=== PATIENT | female | born 1970 | race Caucasian/White ===

== ENCOUNTER 2016-12-14 10:27 | Outpatient (CLI) ==
[2013-04-28 18:50] VITALS: TEMP 97.8
[2016-09-05 18:31] VITALS: BMI 36.0
[2016-12-14 11:02] LABS: FLU INTERNAL QC INTERNAL QC VALID; RAPID FLU A NEGATIVE (NEGATIVE); RAPID FLU B NEGATIVE (NEGATIVE)
== END 2016-12-14 10:28 | disposition home or self-care (01) ==
LOC: LAB 10:27
PROVIDERS: ATTEND Family Medicine
DX: R68.89 Other general symptoms and signs (principal)
CPT/HCPCS: 87804

== ENCOUNTER 2017-01-04 18:41 | Emergency (ER) ==
[2017-01-04 18:46] VITALS: BP 152/84; TEMP 99.8; BMI 39.1
[2017-01-04] MEDS ORDERED: DILAUDID 2 MG/ML SYRINGE IM STA (19:04)
[2017-01-04] MEDS ORDERED: PHENERGAN 25 MG/ML VIAL IM STA (19:04)
--- NOTE | 2017-01-04 19:17 | ED.PDOC ---
General ED Provider: Dr. TEJA BALBUENA-ER Chief Complaint: Headache Stated Complaint: i had a migraine kaminski today and started vomiting--cant keep my meds down Time Seen by Physician: 18:50 Mode of Arrival: Walk-In Information Source: Patient Exam Limitations: No limitations Primary Care Provider: RADHA HALEY Nursing and Triage Documentation Reviewed and Agree: Yes Neurological Complaint Exam - Headache Complaint/Exam Onset: Gradual Duration: several hours Symptoms Are: Still present Timing: Constant Worst Headache Ever: Yes Initial Severity: Moderate Current Severity: Moderate Location: Diffuse Character: Reports: Dull, Throbbing, Pressure, Typical headache, Migraine Aggravating: Reports: Bright lights Alleviating: Reports: None Associated Signs and Symptoms: Reports: Nausea, Vomiting. Denies: Dizziness, Seizure, Sinus pressure, Fever, Neck pain, Neck stiffness, Decreased LOC, Visual changes Related History: Reports: Similar episode (long hx of migraine kaminski) Related Surgical History: Reports: None SAH Risk Factors: Reports: None Meningitis Risk Factors: Reports: None SDH Risk Factors: Reports: None Temporal Arteritis Risk Factors: Reports: Female, Normal Head CT Within Last 12 Months: Yes Fundoscopic Exam: Present: Normal Findings Papilledema Present: No Temporal Artery Tenderness: Present: None Sinus Tenderness: Present: None TMJ Tenderness: Present: None Glascow Coma Scale (see protocol): 15 Meningeal Signs Positive: No Pain on Passive Flexion-Positive Kernig's: No ROM Limited In: No Limitiations Focal Weakness: Present: None Focal Sensory Loss: Present: None Gait: Normal Nystagmus Present: No Gag Reflex Present: Yes [id number]: Normal Findings Romberg Test Positive: No Babinski Sign: Negative Right, Negative Left Heel to Toe Normal: Yes Differential Diagnoses: Migraine Review of Systems - Review Of Systems Constitutional: Reports: No symptoms Eyes: Reports: No symptoms Ears, Nose, Mouth, Throat: Reports: No symptoms Respiratory: Reports: No symptoms Cardiac: Reports: No symptoms GI: Reports: Nausea, Vomiting : Reports: No symptoms Musculoskeletal: Reports: No symptoms Skin: Reports: No symptoms Neurological: Reports: Headache Endocrine: Reports: No symptoms Hematologic/Lymphatic: Reports: No symptoms All Other Systems: Reviewed and Negative Past Medical History - Past Medical History Previously Healthy: Yes Endocrine: Reports: None, Dyslipidemia Cardiovascular: Reports: None, Hypertension Respiratory: Reports: None Hematological: Reports: None Gastrointestinal: Reports: Other (IBS) Genitourinary: Reports: None Neuro/Psych: Reports: Migraine, Depression Musculoskeletal: Reports: None Cancer: Reports: None Last Menstrual Period: hysterectomy - Surgical History General Surgical History: Reports: Hysterectomy, Back Surgery, Other (NASAL SURG FOR SINUSES 05/13) - Family History Family History: Reports: Unknown - Social History Smoking Status: Current every day smoker, Heavy tobacco smoker Hx Substance Use: No Alcohol Screening: None Lives: With family Physical Exam - Physical Exam Appearance: Well-appearing, No pain distress, Well-nourished Pain Distress: Moderate Eyes: KORIN, EOMI, Conjunctiva clear ENT: Ears normal, Nose normal, Oropharynx normal Neck: Supple Respiratory: Airway patent, Breath sounds clear, Breath sounds equal, Respirations nonlabored Cardiovascular: RRR, Pulses normal, No rub, No murmur GI/: Soft, Nontender, No masses, Bowel sounds normal, No Organomegaly Musculoskeletal: Normal strength, ROM intact, No edema, No calf tenderness Skin: Warm, Dry, Normal color Neurological: Sensation intact, Motor intact, Reflexes intact, Cranial nerves intact, Alert, Oriented Psychiatric: Affect appropriate, Mood appropriate Re-Evaluation - Re-Evaluation Time of Re-Evaluation: 19:30 Status: Improved Vital Signs Stable: Yes Pain Level: 1 Appearance: NAD Lungs: Clear Skin: Warm and Dry Neuro: Alert and Oriented X3 CV: RRR Critical Care Note - Critical Care Note Total Time (mins): 0 Course - Course Orders, Labs, Meds: Orders Category Date Time Status Hydromorphone HCl/Pf [Dilaudid 2 mg/ml Syringe] MEDS 01/04/17 19:04 Discontinued 2 mg IM ONCE STA Promethazine HCl [Phenergan 25 mg/ml Vial] MEDS 01/04/17 19:04 Discontinued 25 mg IM ONCE STA Medications Discontinued Medications Generic Name Dose Route Start Last Admin Trade Name Freq PRN Reason Stop Dose Admin Hydromorphone HCl 2 mg 01/04/17 19:04 01/04/17 19:10 Dilaudid 2 Mg/Ml Syringe IM 01/04/17 19:05 2 mg ONCE STA Administration Promethazine HCl 25 mg 01/04/17 19:04 01/04/17 19:08 Phenergan 25 Mg/Ml Vial IM 01/04/17 19:05 25 mg ONCE STA Administration Vital Signs: Temp Pulse Resp BP Pulse Ox 01/04/17 18:41 99.8 F H 119 H 16 152/84 H 96 Departure - Departure Time of Disposition: 19:18 Disposition: HOME SELF-CARE Discharge Problem: Migraine headache Qualifiers: Migraine type: unspecified Status migrainosus presence: without status migrainosus Intractability: not intractable Qualifier Code: (G43.909) Migraine, unspecified, not intractable, without status migrainosus Instructions: Acute Headache (ED) Condition: Good Pt referred to PMD for follow-up: Yes Additional Instructions: f/u with pcp Allergies/Adverse Reactions: Allergies No Known Allergies Allergy (Verified 01/04/17 18:47) Home Medications: Ambulatory Orders Enalapril Maleate 10 mg PO DAILY 04/28/13 Fluoxetine HCl [Prozac] 40 mg PO BIDAC 04/28/13 Furosemide [Lasix Tab] 20 mg PO BID 04/28/13 Pantoprazole Sodium [Protonix] 40 mg PO QDAC 04/28/13 Promethazine HCl [Phenergan Tab] 25 mg PO PRN PRN 04/28/13 Topiramate [Topamax] 200 mg PO DAILY 04/28/13 Trazodone HCl 100 mg PO BEDTIME 04/28/13 Butorphanol Tartrate 1 spray DENNIS DIRECTED PRN 07/24/14 Calcium Carbonate/Vitamin D3 [Calcium 600 + Vit D Caplet] 1 tab PO BID 07/24/14 Carbidopa/Levodopa [Carbidopa-Levodopa 25-100 Tab] 1 tab-cap PO BEDTIME Zolpidem Tartrate [Zolpidem Tartrate] 10 mg PO BEDTIME 07/24/14 Simvastatin [Zocor] 20 mg PO QPM 09/09/14 Hydrocodone/Acetaminophen [[place] 10-325 Tablet] 1 each PO Q6HR PRN #7 tablet Hydrocortisone Acetate [Anusol-Hc] 25 mg RC QID PRN #12 supp.rect 05/20/16 Na Phos,M-B/Na Phos,Di-Ba [Enema Yremk-Zo-Yux] 399 ml RC ONCE PRN #1 enema 05/20 Polyethylene Glycol 3350 [Miralax] 17 gm PO DAILY PRN #510 powder 05/20/16 Cyanocobalamin (Vitamin B-12) [Vitamin B-12] 1,000 mcg IJ ONCE #1 vial 06/15/16 Enalapril Maleate 10 mg PO DAILY 06/15/16 Fluoxetine HCl 40 mg PO DAILY 06/15/16 Furosemide 20 mg PO DAILY 06/15/16 Promethazine HCl 25 mg PO DAILY 06/15/16 Simvastatin 20 mg PO BEDTIME 06/15/16 Topiramate 200 mg PO BEDTIME 06/15/16 Zolpidem Tartrate 10 mg PO BEDTIME 06/15/16 Chlorpromazine HCl 5 mg PO DAILY 01/04/17 Disposition Discussed With: Patient, Family
== END 2017-01-04 19:47 | disposition home or self-care (01) ==
LOC: ED 18:41
DX: G43.909 Migraine, unspecified, not intractable, without status migrainosus (principal); F17.210 Nicotine dependence, cigarettes, uncomplicated
CPT/HCPCS: 96372; 99283

== ENCOUNTER 2017-01-18 09:53 | Outpatient (CLI) ==
[2013-04-28 18:50] VITALS: TEMP 97.8
--- NOTE | 2017-01-18 11:17 | DI ---
Examination: Three radiographic images of the lumbar spine. Comparison: MRI performed 01/12/2013. Reason for study: Lower back pain. FINDINGS: No acute fracture or listhesis. There is similar appearing loss of the intervertebral jarret dy disc space height at L5, S1. There is some straightening of the lumbar lordotic curve. Surgical clips are seen within the pelvis. Mild degenerative changes are seen within the osteophyte formati on. Impression: 1. No acute fracture or listhesis. 2. Degenerative changes with loss of the intervertebral body disc space height most notably L5, S1. If clinical concern exists for radiculopathy, MRI may be performed.
== END 2017-01-18 09:54 | disposition home or self-care (01) ==
LOC: RAD 09:53
PROVIDERS: ATTEND Pain Medicine Interventional Pain Medicine
DX: M51.17 Intervertebral disc disorders with radiculopathy, lumbosacral region (principal); M96.1 Postlaminectomy syndrome, not elsewhere classified; M51.36 Other intervertebral disc degeneration, lumbar region; M51.37 Other intervertebral disc degeneration, lumbosacral region

== ENCOUNTER 2017-02-04 18:01 | Emergency (ER) ==
[2017-02-04 18:03] VITALS: BP 161/100; TEMP 99.1; BMI 38.6
--- NOTE | 2017-02-04 18:23 | ED.PDOC ---
General ED Provider: Dr. URIEL HACKETT Chief Complaint: Headache Stated Complaint: Back of neck; headache. Similar to prior HAs Time Seen by Physician: 18:25 Mode of Arrival: Walk-In Information Source: Patient Primary Care Provider: RADHA HALEY Nursing and Triage Documentation Reviewed and Agree: Yes Review of Systems - Review Of Systems Constitutional: Reports: No symptoms Eyes: Reports: Photophobia Respiratory: Reports: No symptoms GI: Reports: Nausea Musculoskeletal: Reports: No symptoms All Other Systems: Reviewed and Negative Past Medical History - Past Medical History Previously Healthy: Yes Endocrine: Reports: None, Dyslipidemia Cardiovascular: Reports: None, Hypertension Respiratory: Reports: None Hematological: Reports: None Gastrointestinal: Reports: Other (IBS) Genitourinary: Reports: None Neuro/Psych: Reports: Migraine, Depression Musculoskeletal: Reports: None Cancer: Reports: None Last Menstrual Period: n/a - Surgical History General Surgical History: Reports: Hysterectomy, Back Surgery, Other (NASAL SURG FOR SINUSES 05/13) - Family History Family History: Reports: Unknown - Social History Smoking Status: Current every day smoker, Heavy tobacco smoker Hx Substance Use: No Alcohol Screening: None Physical Exam - Physical Exam Appearance: Ill-appearing Ill-appearing: Mild Pain Distress: Mild Eyes: KORIN, EOMI, Right pupil size (5 mm), Left pupil size (5 mm) Neck: Supple Respiratory: Airway patent, Breath sounds clear, Breath sounds equal, Respirations nonlabored Cardiovascular: RRR, Pulses normal Musculoskeletal: Normal strength, ROM intact Skin: Warm, Dry Neurological: Sensation intact, Motor intact Critical Care Note - Critical Care Note Total Time (mins): 25 Course - Course Orders, Labs, Meds: Orders Category Date Time Status Morphine Sulfate [Morphine 4 mg/ml Syringe] MEDS 02/04/17 18:30 Discontinued 4 mg IVP ONCE STA Promethazine HCl [Phenergan 25 mg/ml Vial] MEDS 02/04/17 18:58 Discontinued 25 mg .ROUTE .STK-MED ONE Promethazine HCl [Phenergan 25 mg/ml Vial] 6.25 mg MEDS 02/04/17 18:28 Discontinued 0.9 % Sodium Chloride [Sodium Chloride] 50 ml IV ONCE Sodium Chloride 0.9% [Sodium Chloride] 1,000 ml MEDS 02/04/17 18:27 Discontinued IV BOLUS Medications Discontinued Medications Generic Name Dose Route Start Last Admin Trade Name Freq PRN Reason Stop Dose Admin Promethazine HCl 6.25 mg/ 50.25 mls @ 75 mls/hr 02/04/17 18:28 02/04/17 19:04 Sodium Chloride IV 02/04/17 19:08 75 mls/hr ONCE STA Administration Sodium Chloride 1,000 mls @ 1,000 mls/hr 02/04/17 18:27 02/04/17 18:57 Sodium Chloride IV 02/04/17 19:26 1,000 mls/hr BOLUS STA Administration Morphine Sulfate 4 mg 02/04/17 18:30 02/04/17 19:02 Morphine 4 Mg/Ml Syringe IVP 02/04/17 18:31 4 mg ONCE STA Administration Vital Signs: Temp Pulse Resp BP Pulse Ox 02/04/17 18:02 99.1 F 95 H 16 161/100 H 95 Departure - Departure Time of Disposition: 19:30 Disposition: HOME SELF-CARE Discharge Problem: Migraine headache Instructions: Migraine Headache (ED) Condition: Good Pt referred to PMD for follow-up: Yes (Call for appointment) Additional Instructions: Resume usual medications; rest tonight - resume usual medications. Follow up with primary care; call for appointment. Allergies/Adverse Reactions: Allergies No Known Allergies Allergy (Verified 04/17/17 14:39) Home Medications: Ambulatory Orders Enalapril Maleate 10 mg PO DAILY 04/28/13 Fluoxetine HCl [Prozac] 40 mg PO BIDAC 04/28/13 Furosemide [Lasix Tab] 20 mg PO BID 04/28/13 Pantoprazole Sodium [Protonix] 40 mg PO QDAC 04/28/13 Promethazine HCl [Phenergan Tab] 25 mg PO PRN PRN 04/28/13 Butorphanol Tartrate 1 spray DENNIS DIRECTED PRN 07/24/14 Calcium Carbonate/Vitamin D3 [Calcium 600 + Vit D Caplet] 1 tab PO BID 07/24/14 Carbidopa/Levodopa [Carbidopa-Levodopa 25-100 Tab] 1 tab-cap PO BEDTIME Simvastatin [Zocor] 20 mg PO QPM 09/09/14 Hydrocodone/Acetaminophen [[place] 10-325 Tablet] 1 each PO Q6HR PRN #7 tablet Cyanocobalamin (Vitamin B-12) [Vitamin B-12] 1,000 mcg IJ ONCE #1 vial 06/15/16 Zolpidem Tartrate 10 mg PO BEDTIME 06/15/16 Chlorpromazine HCl 5 mg PO DAILY 01/04/17 Disposition Discussed With: Patient
[2017-02-04] MEDS ORDERED: SODIUM CHLORIDE 1,000 ML IV STA (18:27)
[2017-02-04] MEDS ORDERED: SODIUM CHLORIDE IV STA (18:28)
[2017-02-04] MEDS ORDERED: PHENERGAN IV STA (18:28)
[2017-02-04] MEDS ORDERED: MORPHINE 4 MG/ML SYRINGE IVP STA (18:30)
[2017-02-04] MEDS ORDERED: PHENERGAN 25 MG/ML VIAL ONE (18:58)
== END 2017-02-04 20:10 | disposition home or self-care (01) ==
LOC: ED 18:01
DX: G43.909 Migraine, unspecified, not intractable, without status migrainosus (principal); F17.210 Nicotine dependence, cigarettes, uncomplicated; Z79.899 Other long term (current) drug therapy
CPT/HCPCS: 96365; 96375; 99283

== ENCOUNTER 2017-03-09 09:47 | Emergency (ER) ==
[2017-03-09 09:51] VITALS: BP 152/93; TEMP 96.5
[2017-03-09 09:54] VITALS: BMI 39.4
[2017-03-09] MEDS ORDERED: ZOFRAN 4 MG/2 ML IVP STA (10:45)
[2017-03-09] MEDS ORDERED: MORPHINE 4 MG/ML SYRINGE IVP STA (10:45)
[2017-03-09] MEDS ORDERED: SODIUM CHLORIDE 1,000 ML IV STA (10:46)
--- NOTE | 2017-03-09 12:20 | ED.PDOC ---
General ED Provider: Dr. CAMDEN CONNER JR Chief Complaint: Headache Stated Complaint: WOKE UP WITH MIGRAINE. NAUSEA AND VOMITING[End]05:00 Time Seen by Physician: 10:40 Mode of Arrival: Walk-In Information Source: Patient Exam Limitations: No limitations Primary Care Provider: RADHA HALEY Nursing and Triage Documentation Reviewed and Agree: No Review of Systems - Review Of Systems Constitutional: Reports: Malaise Eyes: Reports: Photophobia GI: Reports: Nausea, Vomiting Neurological: Reports: Headache All Other Systems: Other Past Medical History - Past Medical History Previously Healthy: Yes Endocrine: Reports: None, Dyslipidemia Cardiovascular: Reports: None, Hypertension Respiratory: Reports: None Hematological: Reports: None Gastrointestinal: Reports: Other (IBS) Genitourinary: Reports: None Neuro/Psych: Reports: Migraine, Depression Musculoskeletal: Reports: None Cancer: Reports: None Last Menstrual Period: NONE - Surgical History General Surgical History: Reports: Hysterectomy, Back Surgery, Other (NASAL SURG FOR SINUSES 05/13) - Family History Family History: Reports: Unknown - Social History Smoking Status: Current every day smoker, Heavy tobacco smoker Hx Substance Use: No Alcohol Screening: None Physical Exam - Physical Exam Appearance: Well-appearing Pain Distress: Moderate Eyes: KORIN, EOMI, Conjunctiva clear ENT: Ears normal, Nose normal, Oropharynx normal Neck: Supple Respiratory: Airway patent, Breath sounds clear, Breath sounds equal, Respirations nonlabored Cardiovascular: RRR, Pulses normal, No rub, No murmur GI/: Soft, Nontender, No masses, Bowel sounds normal, No Organomegaly Musculoskeletal: Normal strength, ROM intact, No edema, No calf tenderness Skin: Warm, Dry, Normal color Neurological: Sensation intact, Motor intact, Reflexes intact, Cranial nerves intact, Alert, Oriented Psychiatric: Affect appropriate, Mood appropriate Re-Evaluation - Re-Evaluation Time of Re-Evaluation: 12:13 Status: Improved (headache resolved) Critical Care Note - Critical Care Note Total Time (mins): 0 Course - Course Orders, Labs, Meds: Orders Category Date Time Status ED IV/MEDIPORT/POWERPORT .ONCE EMERGENCY 03/09/17 10:46 Active 0.9 % Sodium Chloride [Saline Flush] MEDS 03/09/17 10:46 Discontinued 1 syr IVF PRN PRN Morphine Sulfate [Morphine 4 mg/ml Syringe] MEDS 03/09/17 10:45 Discontinued 4 mg IVP ONCE STA Ondansetron HCl/Pf [Zofran 4 mg/2 ml] MEDS 03/09/17 10:45 Discontinued 4 mg IVP ONCE STA Sodium Chloride 0.9% [Sodium Chloride] 1,000 ml MEDS 03/09/17 10:46 Discontinued IV BOLUS Medications Discontinued Medications Generic Name Dose Route Start Last Admin Trade Name Freq PRN Reason Stop Dose Admin Sodium Chloride 1,000 mls @ 1,000 mls/hr 03/09/17 10:46 03/09/17 11:02 Sodium Chloride IV 03/09/17 11:45 1,000 mls/hr BOLUS STA Administration Morphine Sulfate 4 mg 03/09/17 10:45 03/09/17 11:02 Morphine 4 Mg/Ml Syringe IVP 03/09/17 10:46 4 mg ONCE STA Administration Ondansetron HCl 4 mg 03/09/17 10:45 03/09/17 11:01 Zofran 4 Mg/2 Ml IVP 03/09/17 10:46 4 mg ONCE STA Administration Sodium Chloride 1 syr 03/09/17 10:46 03/09/17 11:02 Saline Flush IVF 1 syr PRN PRN Administration To flush IV Vital Signs: Temp Pulse Resp BP Pulse Ox 03/09/17 09:47 96.5 F L 86 18 152/93 H 98 Departure - Departure Time of Disposition: 12:13 Disposition: HOME SELF-CARE Discharge Problem: Headache Instructions: Migraine Headache (ED) Condition: Good Pt referred to PMD for follow-up: Yes Additional Instructions: discuss headaches with Dr Francis consider cognitive behavioral therapy if indicated (And if available) consider beta blockers daily or other vermin exterminator migraine control given Morphine Zofran and fluids while in the ER. Allergies/Adverse Reactions: Allergies No Known Allergies Allergy (Verified 03/09/17 09:52) Home Medications: Ambulatory Orders Enalapril Maleate 10 mg PO DAILY 04/28/13 Fluoxetine HCl [Prozac] 40 mg PO BIDAC 04/28/13 Furosemide [Lasix Tab] 20 mg PO BID 04/28/13 Pantoprazole Sodium [Protonix] 40 mg PO QDAC 04/28/13 Promethazine HCl [Phenergan Tab] 25 mg PO PRN PRN 04/28/13 Butorphanol Tartrate 1 spray DENNIS DIRECTED PRN 07/24/14 Calcium Carbonate/Vitamin D3 [Calcium 600 + Vit D Caplet] 1 tab PO BID 07/24/14 Carbidopa/Levodopa [Carbidopa-Levodopa 25-100 Tab] 1 tab-cap PO BEDTIME Simvastatin [Zocor] 20 mg PO QPM 09/09/14 Hydrocodone/Acetaminophen [[place] 10-325 Tablet] 1 each PO Q6HR PRN #7 tablet Cyanocobalamin (Vitamin B-12) [Vitamin B-12] 1,000 mcg IJ ONCE #1 vial 06/15/16 Zolpidem Tartrate 10 mg PO BEDTIME 06/15/16 Chlorpromazine HCl 5 mg PO DAILY 01/04/17
== END 2017-03-09 12:47 | disposition home or self-care (01) ==
LOC: ED 09:47
DX: G43.909 Migraine, unspecified, not intractable, without status migrainosus (principal); F17.210 Nicotine dependence, cigarettes, uncomplicated; Z79.899 Other long term (current) drug therapy
CPT/HCPCS: 96361; 96374; 96375; 99283

== ENCOUNTER 2017-03-28 09:53 | Outpatient (CLI) ==
[2013-04-28 18:50] VITALS: TEMP 97.8
--- NOTE | 2017-03-28 10:33 | DI ---
EXAM: Three views of the left knee. History: Left knee pain. Findings: No acute fracture or dislocation. Joint spaces are relatively preserved. No abnormal ca lcifications or radiopaque foreign bodies. Impression: No acute osseous abnormalities and no significant degenerative changes.
== END 2017-03-28 09:54 | disposition home or self-care (01) ==
LOC: RAD 09:53
PROVIDERS: ATTEND Family Medicine
DX: M25.562 Pain in left knee (principal)

== ENCOUNTER 2017-04-17 14:32 | Emergency (ER) ==
[2017-04-17 14:33] VITALS: BMI 39.4
[2017-04-17 14:39] VITALS: BP 147/95; TEMP 98.3
--- NOTE | 2017-04-17 14:57 | ED.PDOC ---
General ED Provider: Dr. CAMDEN CONNER JR Chief Complaint: Headache Stated Complaint: Global H/A since 10 am this morning. Hx frequent H/A's. Takes Stadol nasal spray, but is out of it et not due for renewal until next week. Sees neurologist Dr Francis in [place].[End]since 10:00 98.3 88 20 95% 147/95 09/06 Time Seen by Physician: 14:50 Mode of Arrival: Walk-In Information Source: Patient Exam Limitations: No limitations Primary Care Provider: RADHA HALEY Nursing and Triage Documentation Reviewed and Agree: No Review of Systems - Review Of Systems Constitutional: Reports: No symptoms Eyes: Reports: No symptoms Ears, Nose, Mouth, Throat: Reports: No symptoms Respiratory: Reports: No symptoms Cardiac: Reports: No symptoms GI: Reports: No symptoms : Reports: No symptoms Musculoskeletal: Reports: No symptoms Skin: Reports: No symptoms Neurological: Reports: Headache Endocrine: Reports: No symptoms Hematologic/Lymphatic: Reports: No symptoms All Other Systems: Other Past Medical History - Past Medical History Previously Healthy: Yes Endocrine: Reports: None, Dyslipidemia Cardiovascular: Reports: None, Hypertension Respiratory: Reports: None Hematological: Reports: None Gastrointestinal: Reports: Other (IBS) Genitourinary: Reports: None Neuro/Psych: Reports: Migraine, Depression Musculoskeletal: Reports: None Cancer: Reports: None Last Menstrual Period: hysterectomy Other Pertinent Past Medical History: IBS - Surgical History General Surgical History: Reports: Hysterectomy, Back Surgery, Other (NASAL SURG FOR SINUSES 05/13) - Family History Family History: Reports: Unknown - Social History Smoking Status: Current every day smoker, Heavy tobacco smoker Hx Substance Use: No Alcohol Screening: None Physical Exam - Physical Exam Appearance: Well-appearing, Obese Ill-appearing: Moderate Pain Distress: Moderate Eyes: KORIN, EOMI, Conjunctiva clear ENT: Ears normal, Nose normal, Oropharynx normal Neck: Supple Respiratory: Airway patent, Breath sounds clear, Breath sounds equal, Respirations nonlabored Cardiovascular: RRR, Pulses normal, No rub, No murmur GI/: Soft, Nontender, No masses, Bowel sounds normal, No Organomegaly Musculoskeletal: Normal strength, ROM intact, No edema, No calf tenderness Skin: Warm, Dry, Normal color Neurological: Sensation intact, Motor intact, Reflexes intact, Cranial nerves intact, Alert, Oriented Psychiatric: Affect appropriate, Mood appropriate Re-Evaluation - Re-Evaluation Time of Re-Evaluation: 15:41 Status: Improved (05/07) Critical Care Note - Critical Care Note Total Time (mins): 0 Course - Course Orders, Labs, Meds: Orders Category Date Time Status Morphine Sulfate [Morphine 4 mg/ml Syringe] MEDS 04/17/17 15:03 Discontinued 4 mg IVP ONCE STA Ondansetron HCl/Pf [Zofran 4 mg/2 ml] MEDS 04/17/17 15:03 Discontinued 4 mg IVP ONCE STA Sodium Chloride 0.9% [Sodium Chloride] 1,000 ml MEDS 04/17/17 15:03 Discontinued IV BOLUS Medications Discontinued Medications Generic Name Dose Route Start Last Admin Trade Name Freq PRN Reason Stop Dose Admin Sodium Chloride 1,000 mls @ 1,000 mls/hr 04/17/17 15:03 04/17/17 15:22 Sodium Chloride IV 04/17/17 16:02 1,000 mls/hr BOLUS STA Administration Morphine Sulfate 4 mg 04/17/17 15:03 04/17/17 15:20 Morphine 4 Mg/Ml Syringe IVP 04/17/17 15:04 4 mg ONCE STA Administration Ondansetron HCl 4 mg 04/17/17 15:03 04/17/17 15:20 Zofran 4 Mg/2 Ml IVP 04/17/17 15:04 4 mg ONCE STA Administration Vital Signs: Temp Pulse Resp BP Pulse Ox 04/17/17 14:33 98.3 F 88 20 147/95 H 95 Departure - Departure Time of Disposition: 15:43 Disposition: HOME SELF-CARE Discharge Problem: Headache Instructions: Migraine Headache (ED) Condition: Good Pt referred to PMD for follow-up: Yes Additional Instructions: follow up neurologist as scheduled discuss repeat CT return if worse Allergies/Adverse Reactions: Allergies No Known Allergies Allergy (Verified 04/17/17 14:39) Home Medications: Ambulatory Orders Enalapril Maleate 10 mg PO DAILY 04/28/13 Fluoxetine HCl [Prozac] 40 mg PO BIDAC 04/28/13 Furosemide [Lasix Tab] 20 mg PO BID 04/28/13 Pantoprazole Sodium [Protonix] 40 mg PO QDAC 04/28/13 Promethazine HCl [Phenergan Tab] 25 mg PO PRN PRN 06/01/13 Butorphanol Tartrate 1 spray DENNIS DIRECTED PRN 07/24/14 Calcium Carbonate/Vitamin D3 [Calcium 600 + Vit D Caplet] 1 tab PO BID 07/24/14 Carbidopa/Levodopa [Carbidopa-Levodopa 25-100 Tab] 1 tab-cap PO BEDTIME Simvastatin [Zocor] 20 mg PO QPM 09/09/14 Hydrocodone/Acetaminophen [[place] 10-325 Tablet] 1 each PO Q6HR PRN #7 tablet Cyanocobalamin (Vitamin B-12) [Vitamin B-12] 1,000 mcg IJ ONCE #1 vial 06/15/16 Zolpidem Tartrate 10 mg PO BEDTIME 06/15/16 Chlorpromazine HCl 5 mg PO DAILY 01/04/17
[2017-04-17] MEDS ORDERED: ZOFRAN 4 MG/2 ML IM STA (14:58)
[2017-04-17] MEDS ORDERED: MORPHINE 4 MG/ML SYRINGE IM STA (14:58)
[2017-04-17] MEDS ORDERED: SODIUM CHLORIDE 1,000 ML IV STA (15:03)
[2017-04-17] MEDS ORDERED: ZOFRAN 4 MG/2 ML IVP STA (15:03)
[2017-04-17] MEDS ORDERED: MORPHINE 4 MG/ML SYRINGE IVP STA (15:03)
== END 2017-04-17 16:19 | disposition home or self-care (01) ==
LOC: ED 14:32
DX: G43.909 Migraine, unspecified, not intractable, without status migrainosus (principal); F17.210 Nicotine dependence, cigarettes, uncomplicated; Z79.899 Other long term (current) drug therapy
CPT/HCPCS: 96361; 96374; 96375; 99283

== ENCOUNTER 2017-04-22 11:54 | Outpatient (CLI) ==
[2013-04-28 18:50] VITALS: TEMP 97.8
--- NOTE | 2017-04-22 15:42 | MRI ---
EXAM: MRI lumbar spine without IV contrast. DATE: 22 Apr 2017. HISTORY: Chronic low back pain. TECHNIQUE: Sagittal and axial T1W and T2W sequences of the lumbar spine along with sagittal IR and coronal T2W sequences were obtained using 1.2 Nesha magnet. No IV contrast. COMPARISON: LS spine series 18 January 2017. MRI lumbar spine 01/12/2013. FINDINGS: There are five ead-ndf-diubpon lumbar vertebra. Alignment of the lumbar spine is normal. No acute lumbar fracture, subluxation, osseous malignancy, or pars interarticularis defect is iden tified. Lumbar vertebra are normal in height. T2W/T1W bright, 7.6 mm focus in the L3 body is likel y a benign hemangioma. Bone marrow signal is overall normal. Small anterior osteophytes are noted at L4-5 and L5-S1. Minimal L4-5 and moderate L5-S1 modic type 2 degenerate endplate changes are obs erved. Disc desiccation and mild disc space narrowing are seen at L5-S1. Remaining intervertebral discs are normal in height and signal. No sacral fracture or stress reaction is evident. SI joints are unremarkable. Conus medullaris terminates at L1. Visible spinal cord is normal. No retroperitoneal lymphadenopathy, paraspinal mass, or aortic aneurysm is detected. Psoas muscles are normal. Posterior paraspinal muscles are symmetric bilaterally. Visible portion of the liver m easures greater than 15.6 cm in length, without distinct focal mass. Visible portions of the spleen , adrenal glands, and kidneys are normal. Segmental analysis: T12-L1: Normal. L1-2: Normal. L2-3: Normal. L3-4: Normal. L4-5: Minimal posterior to foraminal disc bulge and minor facet disease cause minimal bilateral for aminal narrowing. No central canal stenosis. L5-S1: Right hemilaminectomy defect is observed. Moderate concentric disc bulge and mild facet art hropathy cause mild/moderate narrowing at the opening to each foramen. Each L5 nerve root appears t o contact the disc bulge in the foramen. The right S1 nerve root appears to be mildly posteriorly d isplaced by disc bulge as the nerve exits the thecal sac. No central canal stenosis. IMPRESSIONS: 1. L5-S1 disc bulge compressing the right S1 nerve root may be a source for pain/radiculopathy. 2. Moderate bilateral foraminal stenoses at L5-S1. Each L5 nerve root contacts the disc bulge, and could be sources for pain/radiculopathy. 3. No lumbar spine central canal stenosis. 4. Minimal/mild lower lumbar facet disease. 5. 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
== END 2017-04-22 11:55 ==
LOC: RAD 11:54
PROVIDERS: ATTEND Family Medicine
DX: M54.9 Dorsalgia, unspecified (principal); G89.29 Other chronic pain

== ENCOUNTER 2017-05-14 19:39 | Emergency (ER) ==
[2017-05-14 19:39] VITALS: BMI 39.4
[2017-05-14 19:45] VITALS: TEMP 98
[2017-05-14] MEDS ORDERED: TORADOL IVP STA (19:55)
[2017-05-14] MEDS ORDERED: IMITREX SUBCUT STA (19:56)
[2017-05-14] MEDS ORDERED: SODIUM CHLORIDE 1,000 ML IV STA (19:56)
--- NOTE | 2017-05-14 19:57 | ED.PDOC ---
General ED Provider: Dr. KAREEN GILMORE Chief Complaint: Headache Stated Complaint: Patient is a 46 year old female who comes to the Er with headaches, light sensititivy, nausea vomiting and Diarrhea for 3 days. she states that she feels she is dehydrated. she goes to pain management for her medicine. Time Seen by Physician: 20:00 Mode of Arrival: Walk-In Information Source: Patient Exam Limitations: No limitations Primary Care Provider: RADHA HALEY Nursing and Triage Documentation Reviewed and Agree: Yes Neurological Complaint Exam - Headache Complaint/Exam Onset: Gradual Duration: 1 day Symptoms Are: Still present Timing: Constant Worst Headache Ever: No Initial Severity: Moderate Current Severity: Severe Location: Diffuse, Right, Left Character: Reports: Throbbing, Typical headache Aggravating: Reports: Bright lights Associated Signs and Symptoms: Reports: Nausea, Vomiting. Denies: Dizziness, Seizure, Sinus pressure, Fever, Neck pain, Neck stiffness, Decreased LOC, Visual changes Related Surgical History: Reports: None SAH Risk Factors: Reports: None Meningitis Risk Factors: Reports: None SDH Risk Factors: Reports: None Review of Systems - Review Of Systems Constitutional: Reports: No symptoms Eyes: Reports: No symptoms Ears, Nose, Mouth, Throat: Reports: No symptoms Respiratory: Reports: No symptoms Cardiac: Reports: No symptoms GI: Reports: Nausea, Vomiting : Reports: No symptoms Musculoskeletal: Reports: No symptoms Skin: Reports: No symptoms Neurological: Reports: Headache Endocrine: Reports: No symptoms Hematologic/Lymphatic: Reports: No symptoms All Other Systems: Reviewed and Negative Past Medical History - Past Medical History Previously Healthy: Yes Endocrine: Reports: Dyslipidemia Cardiovascular: Reports: Hypertension Respiratory: Reports: None Hematological: Reports: None Gastrointestinal: Reports: Other (IBS) Genitourinary: Reports: None Neuro/Psych: Reports: Migraine, Depression Musculoskeletal: Reports: None Cancer: Reports: None Last Menstrual Period: PT HAS HAD A HYSTERECTOMY Other Pertinent Past Medical History: IBS - Surgical History General Surgical History: Reports: Hysterectomy, Back Surgery, Other (NASAL SURG FOR SINUSES 05/13) - Family History Family History: Reports: Unknown - Social History Smoking Status: Current every day smoker, Heavy tobacco smoker Hx Substance Use: No Alcohol Screening: None Physical Exam - Physical Exam Appearance: Ill-appearing, Obese Pain Distress: Severe Eyes: KORIN, EOMI, Conjunctiva clear Neck: Supple Respiratory: Airway patent, Breath sounds clear, Breath sounds equal, Respirations nonlabored Cardiovascular: RRR, Pulses normal, No rub, No murmur GI/: Soft, Nontender, No masses, Bowel sounds normal, No Organomegaly Musculoskeletal: Normal strength, ROM intact, No edema, No calf tenderness Skin: Warm, Dry, Normal color Neurological: Sensation intact, Motor intact, Reflexes intact, Cranial nerves intact, Alert, Oriented Psychiatric: Anxious Re-Evaluation - Re-Evaluation Time of Re-Evaluation: 20:15 Status: Improved Critical Care Note - Critical Care Note Total Time (mins): 0 Course - Course Hematology/Chemistry: 05/14/17 20:00 Orders, Labs, Meds: Lab Review 05/14/17 20:00 Sodium 140 Potassium 3.3 L Chloride 107 Carbon Dioxide 24 Anion Gap 12.3 BUN 7 Creatinine 0.75 Estimated GFR (MDRD) 83.00 BUN/Creatinine Ratio 9.33 Glucose 121 H Calcium 8.6 Total Bilirubin 0.25 AST 62 H ALT 69 Alkaline Phosphatase 105 H Total Protein 6.4 Albumin 3.0 L Globulin 3.4 Albumin/Globulin Ratio 0.88 Orders Category Date Time Status ED IV/MEDIPORT/POWERPORT .ONCE EMERGENCY 05/14/17 19:55 Active COMPREHENSIVE METABOLIC PANEL Stat LAB 05/14/17 20:00 Completed 0.9 % Sodium Chloride [Saline Flush] MEDS 05/14/17 19:56 Discontinued 1 syr IVF PRN PRN Diphenoxylate HCl/Atropine [Lomotil] MEDS 05/14/17 20:08 Discontinued 1 tab PO ONCE STA Ketorolac Tromethamine [Toradol] MEDS 05/14/17 19:55 Discontinued 30 mg IVP ONCE STA Sodium Chloride 0.9% [Sodium Chloride] 1,000 ml MEDS 05/14/17 19:56 Discontinued IV BOLUS Sumatriptan Succinate [Imitrex] MEDS 05/14/17 19:56 Discontinued [address]CE STA CT HEAD W/O CONTRAST Stat RADS 05/14/17 20:08 Completed Medications Discontinued Medications Generic Name Dose Route Start Last Admin Trade Name Freq PRN Reason Stop Dose Admin Diphenoxylate HCl/Atropine 1 tab 05/14/17 20:08 05/14/17 20:36 Lomotil PO 05/14/17 20:09 1 tab ONCE STA Administration Sodium Chloride 1,000 mls @ 1,000 mls/hr 05/14/17 19:56 05/14/17 20:09 Sodium Chloride IV 05/14/17 20:55 1,000 mls/hr BOLUS STA Administration Ketorolac Tromethamine 30 mg 05/14/17 19:55 05/14/17 20:12 Toradol IVP 05/14/17 19:56 30 mg ONCE STA Administration Sodium Chloride 1 syr 05/14/17 19:56 05/14/17 20:09 Saline Flush IVF 1 syr PRN PRN Administration To flush IV Sumatriptan Succinate 6 mg 05/14/17 19:56 05/14/17 20:09 Imitrex SUBCUT 05/14/17 19:57 6 mg ONCE STA Administration Vital Signs: Temp Pulse Resp BP Pulse Ox 05/14/17 21:24 71 20 149/96 H 96 05/14/17 19:40 98 F 91 H 20 168/111 H 97 Departure - Departure Time of Disposition: 20:30 Disposition: HOME SELF-CARE Discharge Problem: Headache Instructions: Migraine Headache (ED) Condition: Stable Pt referred to PMD for follow-up: Yes Additional Instructions: FOLLOW UP WITH PMD Allergies/Adverse Reactions: Allergies No Known Allergies Allergy (Verified 05/14/17 19:45) Home Medications: Ambulatory Orders Enalapril Maleate 10 mg PO DAILY 04/28/13 Fluoxetine HCl [Prozac] 40 mg PO BIDAC 04/28/13 Furosemide [Lasix Tab] 20 mg PO BID 04/28/13 Pantoprazole Sodium [Protonix] 40 mg PO QDAC 04/28/13 Promethazine HCl [Phenergan Tab] 25 mg PO PRN PRN 04/28/13 Butorphanol Tartrate 1 spray DENNIS DIRECTED PRN 07/24/14 Calcium Carbonate/Vitamin D3 [Calcium 600 + Vit D Caplet] 1 tab PO BID 07/24/14 Carbidopa/Levodopa [Carbidopa-Levodopa 25-100 Tab] 1 tab-cap PO BEDTIME Simvastatin [Zocor] 20 mg PO QPM 09/09/14 Hydrocodone/Acetaminophen [[place] 10-325 Tablet] 1 each PO Q6HR PRN #7 tablet Cyanocobalamin (Vitamin B-12) [Vitamin B-12] 1,000 mcg IJ ONCE #1 vial 06/15/16 Zolpidem Tartrate 10 mg PO BEDTIME 06/15/16 Chlorpromazine HCl 5 mg PO DAILY PRN 01/04/17
[2017-05-14] MEDS ORDERED: LOMOTIL PO STA (20:08)
[2017-05-14 20:31] LABS: ALBUMIN/GLOBULIN RATIO 0.88; ANION GAP 12.3; BILIRUBIN,TOTAL 0.25 mg/dL (0.00-1.20); BUN/CREATININE RATIO 9.33; CALCIUM 8.6 mg/dL (8.2-10.2); CREATININE 0.75 mg/dL (0.60-1.30); POTASSIUM 3.3 mmol/L (3.5-5.10); TOTAL PROTEIN 6.4 g/dL (6.4-8.2)
--- NOTE | 2017-05-14 20:35 | CT ---
EXAM: CT of the head without contrast History: Headache. Comparison: Head CT 07/24/2014, brain MRI 07/24/2014 Technique: Multiplanar CT images through the head were obtained without the administration of IV con trast Findings: The visualized paranasal sinuses and mastoid air cells are clear in general. No acute ca lvarial abnormalities. Postsurgical changes of the right orbital floor again noted. Intracranially there is stable mild frontal atrophy. No dominant mass or midline shift. No hydroce phalous. No acute intracranial hemorrhage or abnormal extraaxial fluid collections. Impression: No acute intracranial process. Mild frontal atrophy. No significant interval change co mpared to the prior study.
[2017-05-14 21:24] VITALS: BP 149/96
== END 2017-05-14 21:32 | disposition home or self-care (01) ==
LOC: ED 19:39
DX: G43.909 Migraine, unspecified, not intractable, without status migrainosus (principal); F17.210 Nicotine dependence, cigarettes, uncomplicated; Z79.899 Other long term (current) drug therapy
CPT/HCPCS: 36415; 80053; 96361; 96372; 96374; 99283

== ENCOUNTER 2017-08-07 17:26 | Emergency (ER) ==
[2017-08-07 17:26] VITALS: BMI 39.4
[2017-08-07 17:32] VITALS: BP 139/108; TEMP 98.3
--- NOTE | 2017-08-07 18:00 | ED.PDOC ---
General ED Provider: Dr. JIE ELLIS Chief Complaint: Extremity Swelling/Pain Stated Complaint: Lower legs and feet have been swollen and painful for 2 days. This has happened before, once of twice a year for several years. Last time was mid-summer. No pain relief from [place]. Time Seen by Physician: 17:55 Mode of Arrival: Walk-In Information Source: Patient Exam Limitations: No limitations Primary Care Provider: RADHA HALEY Nursing and Triage Documentation Reviewed and Agree: Yes Cardiovascular Complaint Exam - Hypertension Complaint/Exam Onset/Duration: 2 days Symptoms Are: Still present Timing: Constant Reported B/P Prior to Arrival: unknown Aggravating: Reports: None Alleviating: Reports: None Associated Signs and Symptoms: Reports: Swelling Related History: Reports: Similar episode, Current Diuretic Related Surgical History: Reports: None Cardiac Risk Factors: Reports: Hypertension, Elevated lipids Recent Change in Medications: No A/V [place]: No Papilledema Present: No JVD Present: No Carotid Bruit Present: No Femoral Pulses Bounding: No Differential Diagnoses: Other (CHF, fluid retention) Review of Systems - Review Of Systems Constitutional: Reports: No symptoms Respiratory: Reports: No symptoms Cardiac: Reports: No symptoms GI: Reports: No symptoms : Reports: No symptoms Musculoskeletal: Reports: Muscle pain (both lower legs and feet) Skin: Reports: Other (sweeling of both lower legs and feet) Neurological: Reports: No symptoms All Other Systems: Reviewed and Negative Past Medical History - Past Medical History Previously Healthy: Yes Endocrine: Reports: Dyslipidemia Cardiovascular: Reports: Hypertension Respiratory: Reports: None Hematological: Reports: None Gastrointestinal: Reports: Other (IBS) Genitourinary: Reports: None Neuro/Psych: Reports: Migraine, Depression Musculoskeletal: Reports: None Cancer: Reports: None Last Menstrual Period: HYSTERECTOMY Other Pertinent Past Medical History: IBS - Surgical History General Surgical History: Reports: Hysterectomy, Back Surgery, Other (NASAL SURG FOR SINUSES 05/13) - Family History Family History: Reports: Unknown - Social History Smoking Status: Current every day smoker, Heavy tobacco smoker Hx Substance Use: No Alcohol Screening: None Lives: Alone - Immunizations Tetanus Shot up to Date: Yes Physical Exam - Physical Exam Appearance: Well-appearing, No pain distress, Well-nourished, Obese Ill-appearing: None Pain Distress: None Respiratory: Airway patent, Breath sounds clear, Breath sounds equal, Respirations nonlabored Cardiovascular: RRR, Pulses normal, No rub, No murmur GI/: Soft, Nontender, No masses, Bowel sounds normal, No Organomegaly Musculoskeletal: Normal strength, ROM intact, No edema, Edema (bilateral lower leg and feet +1 edema), Calf tenderness (bilateral lower leg and feet tenderness ) Interpretation - EKG Interpretation Time of EKG #1: 18:12 Rate: Normal Rhythm: Sinus Ectopy: None [place]: NL ST Segment: Normal Interpretation: Prolonged QT Critical Care Note - Critical Care Note Total Time (mins): 0 Course - Course Hematology/Chemistry: 08/07/17 18:10 08/07/17 18:10 Orders, Labs, Meds: Lab Review 08/07/17 18:10 WBC 6.88 RBC 3.63 L Hgb 11.5 L Hct 33.3 L MCV 91.7 MCH 31.7 H MCHC 34.5 RDW Coeff of [place] 12.7 Plt Count 185 Immature Gran % (Auto) 0.3 Neut % (Auto) 52.1 Lymph % (Auto) 37.8 [place] % (Auto) 6.5 Eos % (Auto) 2.6 Baso % (Auto) 0.7 Immature Gran # (Auto) 0.0 Neut # 3.6 Lymph # 2.6 [place] # 0.5 Eos # 0.2 Baso # 0.1 Sodium 138 Potassium 3.6 Chloride 109 H Carbon Dioxide 25 Anion Gap 7.6 BUN 19 H Creatinine 0.82 Estimated GFR (MDRD) 75.00 BUN/Creatinine Ratio 23.17 Glucose 146 H Calcium 8.8 Total Bilirubin 0.21 AST 33 ALT 49 Alkaline Phosphatase 116 H B-Natriuretic Peptide 25 Total Protein 6.2 L Albumin 2.8 L Globulin 3.4 Albumin/Globulin Ratio 0.82 Orders Category Date Time Status EKG-(ED ONLY) Stat CARDIO 08/07/17 18:04 Completed BNP [B-TYPE NATRIURETIC PEPTIDE] Stat LAB 08/07/17 18:10 Completed CBC W/ AUTO DIFF Stat LAB 08/07/17 18:10 Completed COMPREHENSIVE METABOLIC PANEL Stat LAB 08/07/17 18:10 Completed URINALYSIS C & S IF INDICATED Stat LAB 08/07/17 18:04 Uncollected Furosemide [Lasix] MEDS 08/07/17 18:58 Stat 40 mg IVP ONCE STA Morphine Sulfate [Morphine 2 mg/ml Syringe] MEDS 08/07/17 18:06 Discontinued 2 mg IM ONCE STA Medications Generic Name Dose Route Start Last Admin Trade Name Freq PRN Reason Stop Dose Admin Furosemide 40 mg 08/07/17 18:58 Lasix IVP 08/07/17 18:59 ONCE STA Discontinued Medications Generic Name Dose Route Start Last Admin Trade Name Yordy PRN Reason Stop Dose Admin Morphine Sulfate 2 mg 08/07/17 18:06 08/07/17 18:19 Morphine 2 Mg/Ml Syringe IM 08/07/17 18:07 2 mg ONCE STA Administration Vital Signs: Temp Pulse Resp BP Pulse Ox 08/07/17 17:27 98.3 F 100 H 18 139/108 H 97 AMI Core - Clinical Trial Participant Clinical Trial Participant: No - Palliative Care Palliative Care: none - Aspirin Reason for not ordering Aspirin: not indicated - Statins Reason for not ordering Statins: not indicated - Fibrinolytic Reason for not ordering Fibrinolytic: not indicated - EKG Initial Interpretation EKG Initial Interpretation Date: 08/07/17 (Prolonged QT, nothing acute) SALVADOR Risk Score Age >/= 65: No >/= 3 CAD Risk Factors: Yes Known CAD (Stenosis >/= 50%): No ASA Use in Past 7 Days: No Severe Angina (>/= 2 episodes in 24 hours): No EKG ST Changes >/= 0.5mm: No Postive Cardiac Marker: No SALVADOR Total Score: 1 SALVADOR Risk Score: Risk Score Odds of by 30D 0 0.1 (0.1-0.2) 1 0.3 (0.2-0.3) 2 0.4 (0.3-0.5) 3 0.7 (0.6-0.9) 4 1.2 (1.0-1.5) 5 2.2 (1.9-2.6) 6 3.0 (2.5-3.6) 7 4.8 (3.8-6.1) Departure - Departure Time of Disposition: 19:01 Disposition: HOME SELF-CARE Discharge Problem: Fluid retention in legs Instructions: Leg Edema (ED) Condition: Good Pt referred to PMD for follow-up: Yes (Follow up with PCP this week) Additional Instructions: Increase Lasix to 40 mg by mouth twice a day (double current dose). Allergies/Adverse Reactions: Allergies No Known Allergies Allergy (Verified 08/07/17 17:31) Home Medications: Ambulatory Orders Enalapril Maleate 10 mg PO DAILY 04/28/13 Fluoxetine HCl [Prozac] 40 mg PO BIDAC 04/28/13 Furosemide [Lasix Tab] 20 mg PO BID 04/28/13 Pantoprazole Sodium [Protonix] 40 mg PO QDAC 04/28/13 Promethazine HCl [Phenergan Tab] 25 mg PO PRN PRN 04/28/13 Calcium Carbonate/Vitamin D3 [Calcium 600 + Vit D Caplet] 1 tab PO BID 07/24/14 Carbidopa/Levodopa [Carbidopa-Levodopa 25-100 Tab] 1 tab-cap PO BEDTIME Simvastatin [Zocor] 20 mg PO QPM 09/09/14 Hydrocodone/Acetaminophen [[place] 10-325 Tablet] 1 each PO Q6HR PRN #7 tablet Cyanocobalamin (Vitamin B-12) [Vitamin B-12] 1,000 mcg IJ ONCE #1 vial 06/15/16 Zolpidem Tartrate 10 mg PO BEDTIME 06/15/16 Disposition Discussed With: Patient
[2017-08-07] MEDS ORDERED: MORPHINE 2 MG/ML SYRINGE IM STA (18:06)
[2017-08-07 18:16] LABS: BASOPHILS # (AUTO) 0.1 K/uL (0-0.2); BASOPHILS % (AUTO) 0.7 % (0.0-3.0); EOSINOPHILS # (AUTO) 0.2 K/ul (0.0-0.7); EOSINOPHILS % (AUTO) 2.6 % (0.0-7.0); HEMATOCRIT 33.3 % (37.0-47.0); HEMOGLOBIN 11.5 g/dl (12.0-16.0); IMMATURE GRANULOCYTE % (AUTO) 0.3 % (0.0-5.0); LYMPHOCYTES # (AUTO) 2.6 K/uL (0.60-3.4); LYMPHOCYTES % (AUTO) 37.8 (10.0-50.0); MEAN CORPUSCULAR HEMOGLOBIN 31.7 pg (27.0-31.0); MEAN CORPUSCULAR HGB CONC 34.5 (31.8-35.4); MEAN CORPUSCULAR VOLUME 91.7 fl (81.0-99.0); MONOCYTES # (AUTO) 0.5 K/uL (0.4-2.0); MONOCYTES % (AUTO) 6.5 (0-10); NEUTROPHILS # (AUTO) 3.6 K/ul (2.0-6.9); NEUTROPHILS % (AUTO) 52.1; PLATELET COUNT 185 10^3/uL (140-440); RED BLOOD COUNT 3.63 10^6/ul (4.20-5.40); WHITE BLOOD COUNT 6.88 K/ul (4.6-10.2)
[2017-08-07 18:35] LABS: ALBUMIN 2.8 g/dL (3.4-5.0); ALBUMIN/GLOBULIN RATIO 0.82; ANION GAP 7.6; BILIRUBIN,TOTAL 0.21 mg/dL (0.00-1.20); BUN/CREATININE RATIO 23.17; CALCIUM 8.8 mg/dL (8.2-10.2); CREATININE 0.82 mg/dL (0.60-1.30); POTASSIUM 3.6 mmol/L (3.5-5.10); TOTAL PROTEIN 6.2 g/dL (6.4-8.2)
[2017-08-07] MEDS ORDERED: LASIX IVP STA (18:58)
== END 2017-08-07 19:08 | disposition home or self-care (01) ==
LOC: ED 17:26
DX: R60.0 Localized edema (principal); I10 Essential (primary) hypertension; E78.5 Hyperlipidemia, unspecified; F17.210 Nicotine dependence, cigarettes, uncomplicated
CPT/HCPCS: 36415; 80053; 83880; 85025; 93005; 93010; 96372; 99283

== ENCOUNTER 2017-08-10 08:43 | Emergency (ER) ==
[2017-08-10 08:43] VITALS: BMI 39.4
[2017-08-10 08:47] VITALS: BP 129/86; TEMP 97.2
--- NOTE | 2017-08-10 09:00 | ED.PDOC ---
General ED Provider: Dr. CAMDEN CONNER JR Chief Complaint: Back Pain Stated Complaint: complains of right sided back pain, thinks she has a kidney infection. dr haley just changed lasix from 40mg to 80 mg a day for swelling to ankles. states she is unable to urinate, just dribbles [ End ]97.2 87 20 95% 129/86 09/06 states has been drinking water all morning unable to void requests IM lasix and ambrosio for urine specimen Time Seen by Physician: 08:57 Mode of Arrival: Walk-In Information Source: Patient Exam Limitations: No limitations Primary Care Provider: RADHA HALEY Nursing and Triage Documentation Reviewed and Agree: No Review of Systems - Review Of Systems Constitutional: Reports: Malaise, Weakness Eyes: Reports: No symptoms Ears, Nose, Mouth, Throat: Reports: No symptoms Respiratory: Reports: No symptoms Cardiac: Reports: Edema : Reports: Burning, Frequency, Flank pain (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) Musculoskeletal: Reports: Muscle pain, Muscle stiffness Skin: Reports: Other Neurological: Reports: Anxiety, Emotional problems, Weakness Endocrine: Reports: Other Hematologic/Lymphatic: Reports: No symptoms All Other Systems: Other Past Medical History - Past Medical History Previously Healthy: Yes Endocrine: Reports: Dyslipidemia Cardiovascular: Reports: Hypertension Respiratory: Reports: None Hematological: Reports: None Gastrointestinal: Reports: Other (IBS) Genitourinary: Reports: None Neuro/Psych: Reports: Migraine, Depression Musculoskeletal: Reports: None Cancer: Reports: None Last Menstrual Period: none Other Pertinent Past Medical History: IBS - Surgical History General Surgical History: Reports: Hysterectomy, Back Surgery, Other (NASAL SURG FOR SINUSES 05/13) - Family History Family History: Reports: Unknown - Social History Smoking Status: Current every day smoker, Heavy tobacco smoker Hx Substance Use: No Alcohol Screening: None Physical Exam - Physical Exam Appearance: Well-appearing, Obese Pain Distress: Mild Eyes: KORIN, EOMI, Conjunctiva clear ENT: Ears normal, Nose normal, Oropharynx normal Neck: Supple Respiratory: Airway patent, Breath sounds clear, Breath sounds equal, Respirations nonlabored Cardiovascular: RRR, Pulses normal, No rub, No murmur GI/: Soft, Nontender, No masses, Bowel sounds normal, No Organomegaly Musculoskeletal: Normal strength, ROM intact, No calf tenderness, Edema (ankles and wrists) Skin: Warm, Dry, Normal color Neurological: Sensation intact, Motor intact, Reflexes intact, Cranial nerves intact, Alert, Oriented Psychiatric: Anxious Interpretation - EKG Interpretation Time of EKG #1: 09:45 Rate: Normal Rhythm: Sinus ST Segment: Other (T inversion has improved [id number] prolongation has incresed) EKG Comparison: No significant changes Critical Care Note - Critical Care Note Total Time (mins): 0 Course - Course Orders, Labs, Meds: Lab Review 08/10/17 09:45 Urine Color Yellow Urine Clarity Clear Urine pH 5.5 Ur Specific [place] 1.015 Urine Protein Negative Urine Glucose (UA) Negative Urine Ketones Negative Urine Blood Negative Urine Nitrite Negative Urine Bilirubin Negative Urine Urobilinogen 0.2 Ur Leukocyte Esterase Negative Orders Category Date Time Status EKG-(ED ONLY) Stat CARDIO 08/10/17 09:28 Completed ED BLADDER SCAN .ONCE EMERGENCY 08/10/17 09:25 Active Ambrosio [ED CATHETER INSERTION AND CARE] .ONCE EMERGENCY 08/10/17 09:25 Active URINALYSIS C & S IF INDICATED Stat LAB 08/10/17 09:45 Completed Furosemide [Lasix] MEDS 08/10/17 09:17 Discontinued 40 mg IM ONCE STA Morphine Sulfate [Morphine 2 mg/ml Syringe] MEDS 08/10/17 09:42 Discontinued 4 mg IM ONCE STA Ondansetron HCl/Pf [Zofran 4 mg/2 ml] MEDS 08/10/17 09:43 Discontinued 4 mg IM ONCE STA CT ABD/PEL WO RENAL STONE PROT Stat RADS 08/10/17 09:52 Completed Medications Discontinued Medications Generic Name Dose Route Start Last Admin Trade Name Yordy PRN Reason Stop Dose Admin Furosemide 40 mg 08/10/17 09:17 08/10/17 09:32 Lasix IM 08/10/17 09:18 40 mg ONCE STA Administration Morphine Sulfate 4 mg 08/10/17 09:42 08/10/17 09:52 Morphine 2 Mg/Ml Syringe IM 08/10/17 09:43 4 mg ONCE STA Administration Ondansetron HCl 4 mg 08/10/17 09:43 08/10/17 09:55 Zofran 4 Mg/2 Ml IM 08/10/17 09:44 4 mg ONCE STA Administration Vital Signs: Temp Pulse Resp BP Pulse Ox 08/10/17 08:43 97.2 F L 87 20 129/86 95 Departure - Departure Time of Disposition: 11:02 Disposition: HOME SELF-CARE Discharge Problem: Urinary retention with incomplete bladder emptying Instructions: Acute Urinary Retention in Women (ED) Condition: Good Pt referred to PMD for follow-up: Yes Additional Instructions: small amount of retained urine empty bladder every two hours while awake for two days follow up with PMD no evidence infector or stone discuss Lasix with PMD Allergies/Adverse Reactions: Allergies No Known Allergies Allergy (Verified 08/10/17 08:47) Home Medications: Ambulatory Orders Enalapril Maleate 10 mg PO DAILY 04/28/13 Fluoxetine HCl [Prozac] 40 mg PO BIDAC 04/28/13 Furosemide [Lasix Tab] 40 mg PO BID 04/28/13 Pantoprazole Sodium [Protonix] 40 mg PO QDAC 04/28/13 Promethazine HCl [Phenergan Tab] 25 mg PO PRN PRN 04/28/13 Calcium Carbonate/Vitamin D3 [Calcium 600 + Vit D Caplet] 1 tab PO BID 07/24/14 Carbidopa/Levodopa [Carbidopa-Levodopa 25-100 Tab] 1 tab-cap PO BEDTIME Simvastatin [Zocor] 20 mg PO QPM 09/09/14 Hydrocodone/Acetaminophen [[place] 10-325 Tablet] 1 each PO Q6HR PRN #7 tablet Cyanocobalamin (Vitamin B-12) [Vitamin B-12] 1,000 mcg IJ ONCE #1 vial 06/15/16 Zolpidem Tartrate 10 mg PO BEDTIME 06/15/16
[2017-08-10] MEDS ORDERED: LASIX IM STA (09:17)
[2017-08-10] MEDS ORDERED: MORPHINE 2 MG/ML SYRINGE IM STA (09:42)
[2017-08-10] MEDS ORDERED: ZOFRAN 4 MG/2 ML IM STA (09:43)
[2017-08-10 09:49] LABS: BILIRUBIN,URINE Negative (NEGATIVE); KETONES,URINE Negative (NEGATIVE); LEUKOCYTE ESTERASE ,URINE Negative (NEGATIVE); NITRITE,URINE Negative (NEGATIVE); PH,URINE 5.5 (5-9); PROTEIN,URINE Negative (NEGATIVE); URINE, BLOOD Negative (NEGATIVE)
[2017-08-10 09:52] LABS: ADD URINE MICROSCOPIC NO
--- NOTE | 2017-08-10 10:43 | CT ---
EXAM: CT Abdomen without contrast. CT Pelvis without contrast. HISTORY: Dysuria. Right flank pain. COMPARISON: 04/28/2013. TECHNIQUE: Multiple axial images of the abdomen and pelvis were obtained without intravenous contras t. Images were reformatted in the coronal plane. FINDINGS: Please note that evaluation of the abdominal and pelvic structures is limited due to lack of intravenous contrast. The lung bases are clear. Degenerative changes are present in the spine. The liver is enlarged and diffusely low density. Gallbladder is absent. The pancreas, spleen, and a drenal glands demonstrate normal contour. No calcified renal stones or hydronephrosis detected. Fol ey catheter present within the urinary bladder. Air in the urinary bladder is presumably due to this . No localized bladder abnormality identified. The bowel is normal in course and caliber without evidence for obstruction or inflammatory process. L inear high density focus within the sigmoid colon on axial image 121 could be ingested material or a biopsy clip. Suspect prior appendectomy. No free fluid or free air identified. Uterus is absent. C lips seen along the rectus sheath. Clips seen in the right inguinal region as well. Mild atheroscler otic calcifications are present. IMPRESSION: 1. No acute abnormality in the abdomen or pelvis. No evidence for nephrolithiasis or obstructive uro marquita. 2. Hepatomegaly with fatty infiltration.
== END 2017-08-10 11:13 | disposition home or self-care (01) ==
LOC: ED 08:43
DX: R33.9 Retention of urine, unspecified (principal); R60.0 Localized edema; Z79.899 Other long term (current) drug therapy; F17.210 Nicotine dependence, cigarettes, uncomplicated
CPT/HCPCS: 51798; 74176; 81001; 93005; 93010; 96372; 99283

== ENCOUNTER 2017-08-27 13:45 | Emergency (ER) ==
[2017-08-27 13:45] VITALS: BMI 39.4
[2017-08-27 13:49] VITALS: BP 157/100; TEMP 98.1
[2017-08-27] MEDS ORDERED: MORPHINE 2 MG/ML SYRINGE IM STA (14:25)
--- NOTE | 2017-08-27 14:25 | ED.PDOC ---
General ED Provider: Dr. JIE ELLIS Chief Complaint: Headache Stated Complaint: Severe headache since approx 1300, onset after taking a nap. Stress level is very high since her brother commited suicide by jumping off a bridge 2 days ago. Photophobia, nausea & vomiting x6 since MARMOLEJO began. Watery diarrhea onset yesterday, TNTC. Feels lightheaded when she stands up. Time Seen by Physician: 14:19 Mode of Arrival: Walk-In Information Source: Patient Primary Care Provider: RADHA HALEY Nursing and Triage Documentation Reviewed and Agree: Yes Neurological Complaint Exam - Headache Complaint/Exam Onset: Sudden Duration: 90 minutes Symptoms Are: Still present Timing: Constant Episodes Lasting: Hours Worst Headache Ever: No Initial Severity: Severe Current Severity: Severe Location: Right, Left, Frontal, Occipital Character: Reports: Throbbing, Migraine Aggravating: Reports: Exertion, Bright lights Alleviating: Reports: None Associated Signs and Symptoms: Reports: Nausea, Vomiting Related History: Reports: Similar episode (previous migraines (averages 15/month )) Related Surgical History: Reports: None SAH Risk Factors: Reports: Smoking, Hypertension Meningitis Risk Factors: Reports: None SDH Risk Factors: Reports: None Temporal Arteritis Risk Factors: Reports: Female, Normal Head CT Within Last 12 Months: No Fundoscopic Exam: Present: Normal Findings Papilledema Present: No Temporal Artery Tenderness: Present: None Sinus Tenderness: Present: None TMJ Tenderness: Present: None Meningeal Signs Positive: No Pain on Passive Flexion-Positive Kernig's: No ROM Limited In: No Limitiations Focal Weakness: Present: None Focal Sensory Loss: Present: None Gait: Normal Nystagmus Present: No Gag Reflex Present: Yes [id number]: Normal Findings Romberg Test Positive: No Babinski Sign: Negative Right, Negative Left Heel to Toe Normal: Yes Differential Diagnoses: Migraine, Other (gastroenteritis, dehydration) Review of Systems - Review Of Systems Constitutional: Reports: No symptoms Eyes: Reports: Photophobia Ears, Nose, Mouth, Throat: Reports: No symptoms Respiratory: Reports: No symptoms Cardiac: Reports: No symptoms GI: Reports: Nausea, Vomiting : Reports: No symptoms Musculoskeletal: Reports: No symptoms Skin: Reports: No symptoms Neurological: Reports: Headache (occipital and frontal, bilaterally) All Other Systems: Reviewed and Negative Past Medical History - Past Medical History Previously Healthy: Yes Endocrine: Reports: Dyslipidemia Cardiovascular: Reports: Hypertension Respiratory: Reports: None Hematological: Reports: None Gastrointestinal: Reports: Other (IBS) Genitourinary: Reports: None Neuro/Psych: Reports: Migraine, Depression Musculoskeletal: Reports: None Cancer: Reports: None Last Menstrual Period: HYSTERECTOMY Other Pertinent Past Medical History: IBS - Surgical History General Surgical History: Reports: Hysterectomy, Back Surgery, Other (NASAL SURG FOR SINUSES 05/13) - Family History Family History: Reports: Unknown - Social History Smoking Status: Current every day smoker, Heavy tobacco smoker Hx Substance Use: No Alcohol Screening: None Lives: Alone - Immunizations Tetanus Shot up to Date: No Influenza Vaccine within 12 Months: No Pneumococcal Vaccine up to Date: No Physical Exam - Physical Exam Appearance: Well-appearing, Well-nourished Ill-appearing: None Pain Distress: Moderate Eyes: KORIN, EOMI, Conjunctiva clear ENT: Ears normal, Nose normal, Oropharynx normal Neck: Supple Respiratory: Airway patent, Breath sounds clear, Breath sounds equal, Respirations nonlabored Cardiovascular: RRR, Pulses normal, No rub, No murmur GI/: Soft, Nontender, No masses, Bowel sounds normal, No Organomegaly Musculoskeletal: Normal strength, ROM intact, No edema, No calf tenderness Skin: Warm, Dry, Normal color Neurological: Sensation intact, Motor intact, Reflexes intact, Cranial nerves intact, Alert, Oriented Psychiatric: Affect appropriate, Mood appropriate Critical Care Note - Critical Care Note Total Time (mins): 0 Course - Course Hematology/Chemistry: 08/27/17 14:38 08/27/17 14:38 Orders, Labs, Meds: Lab Review 08/27/17 08/27/17 14:38 14:38 WBC 6.23 RBC 3.83 L Hgb 12.2 Hct 34.8 L MCV 90.9 MCH 31.9 H MCHC 35.1 RDW Coeff of Donell 12.3 Plt Count 232 Immature Gran % (Auto) 0.3 Neut % (Auto) 47.0 Lymph % (Auto) 38.7 [place] % (Auto) 7.4 Eos % (Auto) 5.8 Baso % (Auto) 0.8 Immature Gran # (Auto) 0.0 Neut # 2.9 Lymph # 2.4 [place] # 0.5 Eos # 0.4 Baso # 0.1 Sodium 143 Potassium 3.7 Chloride 108 H Carbon Dioxide 26 Anion Gap 12.7 BUN 9 Creatinine 0.94 Estimated GFR (MDRD) 64.00 BUN/Creatinine Ratio 9.57 Glucose 91 Calcium 9.0 Total Bilirubin 0.30 AST 40 H ALT 60 Alkaline Phosphatase 110 H Total Protein 6.6 Albumin 3.1 L Globulin 3.5 Albumin/Globulin Ratio 0.89 Orders Category Date Time Status CBC W/ AUTO DIFF Stat LAB 08/27/17 14:38 Completed COMPREHENSIVE METABOLIC PANEL Stat LAB 08/27/17 14:38 Completed Morphine Sulfate [Morphine 2 mg/ml Syringe] MEDS 08/27/17 14:25 Discontinued 2 mg IM ONCE STA Promethazine HCl [Phenergan 25 mg/ml Vial] MEDS 08/27/17 14:26 Discontinued 25 mg IM ONCE STA Medications Discontinued Medications Generic Name Dose Route Start Last Admin Trade Name Freq PRN Reason Stop Dose Admin Morphine Sulfate 2 mg 08/27/17 14:25 08/27/17 14:34 Morphine 2 Mg/Ml Syringe IM 08/27/17 14:26 2 mg ONCE STA Administration Promethazine HCl 25 mg 08/27/17 14:26 08/27/17 14:35 Phenergan 25 Mg/Ml Vial IM 08/27/17 14:27 25 mg ONCE STA Administration Vital Signs: Temp Pulse Resp BP Pulse Ox 08/27/17 13:46 98.1 F 92 H 20 157/100 H 99 Departure - Departure Time of Disposition: 15:42 Disposition: HOME SELF-CARE Discharge Problem: Migraine Instructions: Migraine Headache (ED) Condition: Good Pt referred to PMD for follow-up: No (See doctor if no better in 2 days) Allergies/Adverse Reactions: Allergies No Known Allergies Allergy (Verified 08/27/17 13:49) Home Medications: Ambulatory Orders Enalapril Maleate 10 mg PO DAILY 04/28/13 Fluoxetine HCl [Prozac] 40 mg PO BIDAC 04/28/13 Furosemide [Lasix Tab] 40 mg PO BID 04/28/13 Pantoprazole Sodium [Protonix] 40 mg PO QDAC 04/28/13 Promethazine HCl [Phenergan Tab] 25 mg PO PRN PRN 04/28/13 Calcium Carbonate/Vitamin D3 [Calcium 600 + Vit D Caplet] 1 tab PO BID 07/24/14 Carbidopa/Levodopa [Carbidopa-Levodopa 25-100 Tab] 1 tab-cap PO BEDTIME Simvastatin [Zocor] 20 mg PO QPM 09/09/14 Hydrocodone/Acetaminophen [[place] 10-325 Tablet] 1 each PO Q6HR PRN #7 tablet Cyanocobalamin (Vitamin B-12) [Vitamin B-12] 1,000 mcg IJ ONCE #1 vial 06/15/16 Zolpidem Tartrate 10 mg PO BEDTIME 06/15/16 Disposition Discussed With: Patient
[2017-08-27] MEDS ORDERED: PHENERGAN 25 MG/ML VIAL IM STA (14:26)
[2017-08-27 14:43] LABS: BASOPHILS # (AUTO) 0.1 K/uL (0-0.2); BASOPHILS % (AUTO) 0.8 % (0.0-3.0); EOSINOPHILS # (AUTO) 0.4 K/ul (0.0-0.7); EOSINOPHILS % (AUTO) 5.8 % (0.0-7.0); HEMATOCRIT 34.8 % (37.0-47.0); HEMOGLOBIN 12.2 g/dl (12.0-16.0); IMMATURE GRANULOCYTE % (AUTO) 0.3 % (0.0-5.0); LYMPHOCYTES # (AUTO) 2.4 K/uL (0.60-3.4); LYMPHOCYTES % (AUTO) 38.7 (10.0-50.0); MEAN CORPUSCULAR HEMOGLOBIN 31.9 pg (27.0-31.0); MEAN CORPUSCULAR HGB CONC 35.1 (31.8-35.4); MEAN CORPUSCULAR VOLUME 90.9 fl (81.0-99.0); MONOCYTES # (AUTO) 0.5 K/uL (0.4-2.0); MONOCYTES % (AUTO) 7.4 (0-10); NEUTROPHILS # (AUTO) 2.9 K/ul (2.0-6.9); PLATELET COUNT 232 10^3/uL (140-440); RED BLOOD COUNT 3.83 10^6/ul (4.20-5.40); WHITE BLOOD COUNT 6.23 K/ul (4.6-10.2)
[2017-08-27 15:00] LABS: ALBUMIN 3.1 g/dL (3.4-5.0); ALBUMIN/GLOBULIN RATIO 0.89; ANION GAP 12.7; BILIRUBIN,TOTAL 0.3 mg/dL (0.00-1.20); BUN/CREATININE RATIO 9.57; CREATININE 0.94 mg/dL (0.60-1.30); POTASSIUM 3.7 mmol/L (3.5-5.10); TOTAL PROTEIN 6.6 g/dL (6.4-8.2)
== END 2017-08-27 15:50 | disposition home or self-care (01) ==
LOC: ED 13:45
DX: G43.909 Migraine, unspecified, not intractable, without status migrainosus (principal); F17.210 Nicotine dependence, cigarettes, uncomplicated; I10 Essential (primary) hypertension
CPT/HCPCS: 36415; 80053; 85025; 96372; 99282; 99283

== ENCOUNTER 2017-10-13 16:15 | Emergency (ER) ==
[2017-10-13 16:29] VITALS: BP 130/83; TEMP 98.2; BMI 41.5
[2017-10-13] MEDS ORDERED: MORPHINE 10 MG/ML SYRINGE IM STA (16:34)
[2017-10-13] MEDS ORDERED: PHENERGAN 25 MG/ML VIAL IM STA (16:38)
--- NOTE | 2017-10-13 16:43 | ED.PDOC ---
General ED Provider: Dr. CAMDEN CONNER JR Chief Complaint: Headache Stated Complaint: Pain back of neck radiates top of head Onset 10/11/17. called PMD, Dr Anselmo Flores, instructed come to ER vict[facility] Spearsadol does not work Excedrin Migraine at home. Last 09/26/[address] head April 2017, not related to periods has had since a child, no specific cause following with PMD. [ End ]: 09/26/17 JARROD HALEY: Dyslipidemia: Hypertension: Migraine, Depression: IBS: Hysterectomy, Back Surgery, Other (NASAL SURG FOR SINUSES 05/13 )Morphine Sulfate 4 mg Zofran 4 Mg: Migraine Headache (ED),. Enalapril 10 mg PO DAILY [Prozac] 40 mg PO BIDAC [Lasix Tab] 40 mg PO BID [Protonix] 40 mg PO QDAC [Phenergan Tab] 25 mg PO PRN [Calcium 600 + Vit D Caplet] 1 tab PO BID [Carbidopa-Levodopa 25-100 Tab] BEDTIME [Zocor] 20 mg PO QPM [ [place] 10-325 Tablet] 1 each PO Q6HR PRN [Vitamin B-12] 1,000 mcg IJ Zolpidem Tartrate 10 mg PO BEDTIME. : 08/27/17Dr. JIE ELLIS: Severe headache since 1300, after a nap. Stress high brother suicide jumping off a bridge 2 days ago. Photophobia, nausea & vomiting x6 since MARMOLEJO began. Watery diarrhea onset yesterday, TNTC. lightheaded : Photophobia: Nausea, Vomiting: Headache (occipital and frontal, bilaterally)Morphine 2 Promethazine HCl25 mg: Migraine Headache (ED). 05/14/17 tis 04-17- mzs 4-12 mzs 02/04 mps 2/7 dp 09/05/16 dp 04/27 dtp 04/13 dtp 06-24-15 fluids 04-11-15 dtp Time Seen by Physician: 16:40 Mode of Arrival: Walk-In Information Source: Patient Exam Limitations: No limitations Primary Care Provider: RADHA HALEY Nursing and Triage Documentation Reviewed and Agree: No Review of Systems - Review Of Systems Constitutional: Reports: No symptoms Eyes: Reports: Photophobia Ears, Nose, Mouth, Throat: Reports: No symptoms Respiratory: Reports: No symptoms Cardiac: Reports: No symptoms GI: Reports: Nausea : Reports: No symptoms Musculoskeletal: Reports: No symptoms Skin: Reports: No symptoms Neurological: Reports: Headache Endocrine: Reports: No symptoms Hematologic/Lymphatic: Reports: No symptoms All Other Systems: Other Past Medical History - Past Medical History Previously Healthy: Yes Endocrine: Reports: Dyslipidemia Cardiovascular: Reports: Hypertension Respiratory: Reports: None Hematological: Reports: None Gastrointestinal: Reports: Other (IBS) Genitourinary: Reports: None Neuro/Psych: Reports: Migraine, Depression Musculoskeletal: Reports: None Cancer: Reports: None Last Menstrual Period: hysterectomy Other Pertinent Past Medical History: IBS - Surgical History General Surgical History: Reports: Hysterectomy, Back Surgery, Other (NASAL SURG FOR SINUSES 05/13) - Family History Family History: Reports: Unknown - Social History Smoking Status: Current every day smoker, Heavy tobacco smoker Hx Substance Use: No Alcohol Screening: None - Immunizations Influenza Vaccine within 12 Months: No Pneumococcal Vaccine up to Date: No Physical Exam - Physical Exam Appearance: Well-appearing, Obese Pain Distress: Moderate Eyes: KORIN, EOMI, Conjunctiva clear (fundi with normal vessels no evidence increase pressure not normal CT) ENT: Ears normal, Nose normal, Oropharynx normal Neck: Supple Respiratory: Airway patent, Breath sounds clear, Breath sounds equal, Respirations nonlabored Cardiovascular: RRR, Pulses normal, No rub, No murmur GI/: Soft, Nontender, No masses, Bowel sounds normal, No Organomegaly Musculoskeletal: Normal strength, ROM intact, No edema, No calf tenderness Skin: Warm, Dry, Normal color Neurological: Sensation intact, Motor intact, Reflexes intact, Cranial nerves intact, Alert, Oriented Psychiatric: Affect appropriate, Mood appropriate Critical Care Note - Critical Care Note Total Time (mins): 0 Course - Course Orders, Labs, Meds: Orders Category Date Time Status Morphine Sulfate [Morphine 10 mg/ml Syringe] MEDS 10/13/17 16:34 Discontinued 4 mg IM ONCE STA Promethazine HCl [Phenergan 25 mg/ml Vial] MEDS 10/13/17 16:38 Discontinued 25 mg IM ONCE STA Medications Discontinued Medications Generic Name Dose Route Start Last Admin Trade Name Freq PRN Reason Stop Dose Admin Morphine Sulfate 4 mg 10/13/17 16:34 Morphine 10 Mg/Ml Syringe IM 10/13/17 16:35 ONCE STA Promethazine HCl 25 mg 10/13/17 16:38 Phenergan 25 Mg/Ml Vial IM 10/13/17 16:39 ONCE STA Vital Signs: Temp Pulse Resp BP Pulse Ox 10/13/17 16:20 98.2 F 88 20 130/83 97 Departure - Departure Time of Disposition: 17:15 Disposition: HOME SELF-CARE Discharge Problem: Headache Instructions: Migraine Headache (ED) Condition: Good Pt referred to PMD for follow-up: Yes Additional Instructions: follow up PMD call in morning for follow up return if worsening if fever over 101 Allergies/Adverse Reactions: Allergies No Known Allergies Allergy (Verified 09/26/17 16:40) Home Medications: Ambulatory Orders Enalapril Maleate 10 mg PO DAILY 04/28/13 Fluoxetine HCl [Prozac] 40 mg PO BIDAC 04/28/13 Furosemide [Lasix Tab] 40 mg PO BID 04/28/13 Pantoprazole Sodium [Protonix] 40 mg PO QDAC 04/28/13 Promethazine HCl [Phenergan Tab] 25 mg PO PRN PRN 04/28/13 Calcium Carbonate/Vitamin D3 [Calcium 600 + Vit D Caplet] 1 tab PO BID 07/24/14 Carbidopa/Levodopa [Carbidopa-Levodopa 25-100 Tab] 1 tab-cap PO BEDTIME Simvastatin [Zocor] 20 mg PO QPM 09/09/14 Hydrocodone/Acetaminophen [[place] 10-325 Tablet] 1 each PO Q6HR PRN #7 tablet Cyanocobalamin (Vitamin B-12) [Vitamin B-12] 1,000 mcg IJ ONCE #1 vial 06/15/16 Amlodipine Besylate [Norvasc] 2.5 mg PO DAILY 10/13/17
== END 2017-10-13 17:15 | disposition home or self-care (01) ==
LOC: ED 16:15
DX: R51 Headache (principal); F17.210 Nicotine dependence, cigarettes, uncomplicated
CPT/HCPCS: 96372; 99283

== ENCOUNTER 2017-11-01 16:27 | Emergency (ER) ==
[2017-11-01 16:32] VITALS: BP 142/85; TEMP 97.4; BMI 42.4
--- NOTE | 2017-11-01 16:41 | ED.PDOC ---
General ED Provider: Dr. CAMDEN CONNER JR Chief Complaint: Extremity Swelling/Pain Stated Complaint: has had trouble with swelling to legs for couple months. dr rogers has been adjusting meds. took her off of toradol. states eyes are puffy and swollen and throat feels swollen. also had hernia surgery at [facility] last and thinks it might be infected. complains of head and neck pain [End] 97.4 81 18 97% 142/85 9/10 Time Seen by Physician: 16:40 Mode of Arrival: Walk-In Information Source: Patient Exam Limitations: No limitations Primary Care Provider: RADHA ROGERS Nursing and Triage Documentation Reviewed and Agree: No Review of Systems - Review Of Systems Constitutional: Reports: Malaise, Weakness Eyes: Reports: No symptoms Ears, Nose, Mouth, Throat: Reports: Throat swelling Respiratory: Reports: Short of air Cardiac: Reports: Edema, Palpitations GI: Reports: Abdominal pain : Reports: No symptoms Musculoskeletal: Reports: No symptoms Skin: Reports: No symptoms Neurological: Reports: No symptoms Endocrine: Reports: No symptoms Hematologic/Lymphatic: Reports: No symptoms All Other Systems: Other Past Medical History - Past Medical History Previously Healthy: Yes Endocrine: Reports: Dyslipidemia Cardiovascular: Reports: Hypertension Respiratory: Reports: None Hematological: Reports: None Gastrointestinal: Reports: Other (IBS) Genitourinary: Reports: None Neuro/Psych: Reports: Migraine, Anxiety, Depression Musculoskeletal: Reports: None Cancer: Reports: None Last Menstrual Period: none Other Pertinent Past Medical History: IBS - Surgical History General Surgical History: Reports: Hysterectomy, Back Surgery, Other (NASAL SURG FOR SINUSES 05/13) - Family History Family History: Reports: Unknown - Social History Smoking Status: Current every day smoker, Heavy tobacco smoker Hx Substance Use: No Alcohol Screening: None - Immunizations Influenza Vaccine within 12 Months: No Pneumococcal Vaccine up to Date: No Physical Exam - Physical Exam Appearance: Well-appearing, Obese Ill-appearing: Mild Pain Distress: Mild Eyes: KORIN, EOMI, Conjunctiva clear ENT: Ears normal, Nose normal, Oropharynx normal Neck: Supple Respiratory: Airway patent, Breath sounds equal, Respirations nonlabored, Rhonchi Cardiovascular: RRR, Pulses normal, No rub, No murmur GI/: Soft, Nontender (note post operative changes proximal erythema- violaceous not tender noedema no dischage), No masses, Bowel sounds normal, No Organomegaly Musculoskeletal: Normal strength, ROM intact, No edema, No calf tenderness Skin: Warm, Dry, Normal color Neurological: Sensation intact, Motor intact, Reflexes intact, Cranial nerves intact, Alert, Oriented Psychiatric: Anxious Interpretation - Radiology Interpretation Radiology Interpretation By: ED Physician Radiology Results: Negative Exam Interpreted: CXR (mild CM) - EKG Interpretation Time of EKG #1: 17:00 Rate: Normal Rhythm: Sinus ST Segment: Other (qt prolongation) Interpretation: nonacute EKG Comparison: No significant changes () Critical Care Note - Critical Care Note Total Time (mins): 5 Course - Course Hematology/Chemistry: 11/01/17 16:50 11/01/17 16:50 Orders, Labs, Meds: Lab Review 11/01/17 11/01/17 11/01/17 16:50 16:50 16:50 WBC 5.71 RBC 3.65 L Hgb 11.6 L Hct 33.5 L MCV 91.8 MCH 31.8 H MCHC 34.6 RDW Coeff of [place]ell 12.2 Plt Count 204 Immature Gran % (Auto) 0.2 Neut % (Auto) 45.1 Lymph % (Auto) 43.3 [place] % (Auto) 6.1 Eos % (Auto) 4.6 Baso % (Auto) 0.7 Immature Gran # (Auto) 0.0 Neut # 2.6 Lymph # 2.5 [place] # 0.4 Eos # 0.3 Baso # 0.0 Sodium 139 Potassium 3.7 Chloride 107 Carbon Dioxide 24 Anion Gap 11.7 BUN 18 Creatinine 0.70 Estimated GFR (MDRD) 90.00 BUN/Creatinine Ratio 25.71 Glucose 118 H Lactic Acid Calcium 8.6 Total Bilirubin 0.23 AST 24 ALT 49 Alkaline Phosphatase 119 H Total Creatine Kinase 134 CK-MB (CK-2) 1.4 CK-MB (CK-2) % 1.03184 Troponin I < 0.0100 B-Natriuretic Peptide 43 Total Protein 6.2 L Albumin 2.9 L Globulin 3.3 Albumin/Globulin Ratio 0.88 Procalcitonin 11/01/17 11/01/17 16:50 16:50 WBC RBC Hgb Hct MCV MCH MCHC RDW Coeff of [place]ell Plt Count Immature Gran % (Auto) Neut % (Auto) Lymph % (Auto) [place] % (Auto) Eos % (Auto) Baso % (Auto) Immature Gran # (Auto) Neut # Lymph # [place] # Eos # Baso # Sodium Potassium Chloride Carbon Dioxide Anion Gap BUN Creatinine Estimated GFR (MDRD) BUN/Creatinine Ratio Glucose Lactic Acid 7.5 Calcium Total Bilirubin AST ALT Alkaline Phosphatase Total Creatine Kinase CK-MB (CK-2) CK-MB (CK-2) % Troponin I B-Natriuretic Peptide Total Protein Albumin Globulin Albumin/Globulin Ratio Procalcitonin < 0.05 Orders Category Date Time Status EKG-(ED ONLY) Stat CARDIO 11/01/17 16:40 Completed B-TYPE NATRIURETIC PEPTIDE Stat LAB 11/01/17 16:50 Completed BLOOD CULTURE Stat LAB 11/01/17 16:50 Received CBC W/ AUTO DIFF Stat LAB 11/01/17 16:50 Completed COMPREHENSIVE METABOLIC PANEL Stat LAB 11/01/17 16:50 Completed CREATINE KINASE Stat LAB 11/01/17 16:50 Completed LACTIC ACID Stat LAB 11/01/17 16:50 Completed PROCALCITONIN Stat LAB 11/01/17 16:50 Completed TROPONIN I Stat LAB 11/01/17 16:50 Completed Morphine Sulfate [Morphine 2 mg/ml Syringe] MEDS 11/01/17 18:51 Discontinued 4 mg IM ONCE STA CHEST, 1V AP ONLY Stat RADS 11/01/17 16:40 Completed Medications Discontinued Medications Generic Name Dose Route Start Last Admin Trade Name Freq PRN Reason Stop Dose Admin Morphine Sulfate 4 mg 11/01/17 18:51 11/01/17 19:10 Morphine 2 Mg/Ml Syringe IM 11/01/17 18:52 4 mg ONCE STA Administration Vital Signs: Temp Pulse Resp BP Pulse Ox 11/01/17 16:29 97.4 F L 81 18 142/85 H 97 SALVADOR Risk Score SALVADOR Risk Score: Risk Score Odds of by 30D 0 0.1 (0.1-0.2) 1 0.3 (0.2-0.3) 2 0.4 (0.3-0.5) 3 0.7 (0.6-0.9) 4 1.2 (1.0-1.5) 5 2.2 (1.9-2.6) 6 3.0 (2.5-3.6) 7 4.8 (3.8-6.1) Departure - Departure Time of Disposition: 18:53 Disposition: HOME SELF-CARE Discharge Problem: Edema of lower extremity Instructions: Acute Headache (ED), Leg Edema (ED) Condition: Good Pt referred to PMD for follow-up: Yes Additional Instructions: follow up with PMD may have prescription for lower dose amlodipine discuss edema and normal lab tests at ER return if short of air, chest pain or high fever Prescriptions: Amlodipine Besylate [Norvasc] 2.5 mg PO DAILY #30 tablet Allergies/Adverse Reactions: Allergies No Known Allergies Allergy (Verified 11/01/17 16:32) Home Medications: Ambulatory Orders Enalapril Maleate 10 mg PO DAILY 04/28/13 Fluoxetine HCl [Prozac] 40 mg PO BIDAC 04/28/13 Furosemide [Lasix Tab] 40 mg PO BID 04/28/13 Pantoprazole Sodium [Protonix] 40 mg PO QDAC 04/28/13 Promethazine HCl [Phenergan Tab] 25 mg PO PRN PRN 04/28/13 Calcium Carbonate/Vitamin D3 [Calcium 600 + Vit D Caplet] 1 tab PO BID 07/24/14 Carbidopa/Levodopa [Carbidopa-Levodopa 25-100 Tab] 1 tab-cap PO BEDTIME Simvastatin [Zocor] 20 mg PO QPM 09/09/14 Hydrocodone/Acetaminophen [[place] 10-325 Tablet] 1 each PO Q6HR PRN #7 tablet Cyanocobalamin (Vitamin B-12) [Vitamin B-12] 1,000 mcg IJ ONCE #1 vial 06/15/16 Amlodipine Besylate [Norvasc] 2.5 mg PO DAILY 10/13/17 Amlodipine Besylate [Norvasc] 2.5 mg PO DAILY #30 tablet 11/01/17
[2017-11-01 16:54] LABS: BASOPHILS % (AUTO) 0.7 % (0.0-3.0); EOSINOPHILS # (AUTO) 0.3 K/ul (0.0-0.7); EOSINOPHILS % (AUTO) 4.6 % (0.0-7.0); HEMATOCRIT 33.5 % (37.0-47.0); HEMOGLOBIN 11.6 g/dl (12.0-16.0); IMMATURE GRANULOCYTE % (AUTO) 0.2 % (0.0-5.0); LYMPHOCYTES # (AUTO) 2.5 K/uL (0.60-3.4); LYMPHOCYTES % (AUTO) 43.3 (10.0-50.0); MEAN CORPUSCULAR HEMOGLOBIN 31.8 pg (27.0-31.0); MEAN CORPUSCULAR HGB CONC 34.6 (31.8-35.4); MEAN CORPUSCULAR VOLUME 91.8 fl (81.0-99.0); MONOCYTES # (AUTO) 0.4 K/uL (0.4-2.0); MONOCYTES % (AUTO) 6.1 (0-10); NEUTROPHILS # (AUTO) 2.6 K/ul (2.0-6.9); NEUTROPHILS % (AUTO) 45.1; PLATELET COUNT 204 10^3/uL (140-440); RED BLOOD COUNT 3.65 10^6/ul (4.20-5.40); WHITE BLOOD COUNT 5.71 K/ul (4.6-10.2)
[2017-11-01 17:33] LABS: ALANINE AMINOTRANSFERASE 49 U/L (12-78); ALBUMIN 2.9 g/dL (3.4-5.0); ALBUMIN/GLOBULIN RATIO 0.88; ALKALINE PHOSPHATASE 119 U/L (42-98); ANION GAP 11.7; ASPARTATE AMINO TRANSFERASE 24 U/L (15-37); BILIRUBIN,TOTAL 0.23 mg/dL (0.00-1.20); BLOOD UREA NITROGEN 18 mg/dL (7-18); BUN/CREATININE RATIO 25.71; CALCIUM 8.6 mg/dL (8.2-10.2); CARBON DIOXIDE 24 mmol/L (21-32); CHLORIDE 107 mmol/L (98-107); CREATINE KINASE 134 U/L; GLUCOSE 118 mg/dL (70-110); POTASSIUM 3.7 mmol/L (3.5-5.10); SODIUM 139 mmol/L (136-145); TOTAL PROTEIN 6.2 g/dL (6.4-8.2)
[2017-11-01 17:34] LABS: CREATINE KINASE MB 1.4 ng/ml (0.0-3.6)
[2017-11-01] MEDS ORDERED: MORPHINE 2 MG/ML SYRINGE IM STA (18:51)
--- NOTE | 2017-11-02 07:20 | DI ---
EXAM: Single frontal view of the chest HISTORY: Chest pain. COMPARISON: Chest x-ray 02/25/2016 and multiple priors FINDINGS: Cardiomediastinal silhouette is unchanged from prior examination at upper limit of normal. There is no pneumothorax or pleural effusion. There is no consolidation, nodule or mass. The osseou s structures are unremarkable. The right suprahilar abnormality seen on prior examination is not wel l visualized on today's evaluation. IMPRESSION: No acute cardiopulmonary process.
== END 2017-11-01 19:29 | disposition home or self-care (01) ==
LOC: ED 16:27
DX: R60.0 Localized edema (principal); R51 Headache; M54.2 Cervicalgia; R06.02 Shortness of breath; R53.1 Weakness; R10.9 Unspecified abdominal pain; R00.2 Palpitations; Z98.890 Other specified postprocedural states; F17.210 Nicotine dependence, cigarettes, uncomplicated; Z79.899 Other long term (current) drug therapy
CPT/HCPCS: 36415; 80053; 82550; 82553; 83605; 83880; 84145; 84484; 85025; 87040; 93005; 93010; 96372; 99283

== ENCOUNTER 2017-11-21 16:42 | Emergency (ER) ==
[2017-11-21 16:49] VITALS: BP 150/89; TEMP 98; BMI 42.5
[2017-11-21] MEDS ORDERED: MORPHINE 2 MG/ML SYRINGE IM STA (17:03)
[2017-11-21] MEDS ORDERED: PHENERGAN 25 MG/ML VIAL IM STA (17:04)
--- NOTE | 2017-11-21 17:06 | ED.PDOC ---
General ED Provider: Dr. TEJA BALBUENA-ER Chief Complaint: Headache Stated Complaint: olivia got a migraine Time Seen by Physician: 17:05 Mode of Arrival: Walk-In Information Source: Patient Exam Limitations: No limitations Primary Care Provider: RADHA HALEY Nursing and Triage Documentation Reviewed and Agree: Yes Reviewed sepsis parameters & appropriate labs ordered?: Yes System Inflammatory Response Syndrome: Not Applicable Sepsis Protocol: For patient's 13 years and over: Temp is 96.8 and below OR 101 and greater Pulse >90 BPM Resp >20/minute Acutely Altered Mental Status Are patient's symptoms suggestive of a new infection, such as: -Pneumonia -Skin, Soft Tissue -Endocarditis -UTI -Bone, Joint Infection -Implantable Device -Acute Abdominal Infection -Wound Infection -Meningitis -Blood Stream Catheter Infection -Unknown Neurological Complaint Exam - Headache Complaint/Exam Onset: Gradual Duration: several hours Symptoms Are: Still present Timing: Constant Episodes Lasting: Hours Worst Headache Ever: No Initial Severity: Mild Current Severity: Moderate Location: Diffuse Character: Reports: Dull, Throbbing, Pressure, Typical headache, Migraine Aggravating: Reports: Bright lights Alleviating: Reports: None Associated Signs and Symptoms: Reports: Nausea, Vomiting. Denies: Dizziness, Seizure, Sinus pressure, Fever, Neck pain, Neck stiffness, Decreased LOC, Visual changes Related History: Reports: Similar episode. Denies: Recent trauma, Remote trauma Related Surgical History: Reports: None SAH Risk Factors: Reports: None Meningitis Risk Factors: Reports: None Temporal Arteritis Risk Factors: Reports: Female, Normal Head CT Within Last 12 Months: Yes Fundoscopic Exam: Present: Normal Findings Papilledema Present: No Temporal Artery Tenderness: Present: None Sinus Tenderness: Present: None TMJ Tenderness: Present: None Glascow Coma Scale (see protocol): 15 Meningeal Signs Positive: No Pain on Passive Flexion-Positive Kernig's: No ROM Limited In: No Limitiations Focal Weakness: Present: None Focal Sensory Loss: Present: None Gait: Normal Nystagmus Present: No Gag Reflex Present: No [id number]: Normal Findings Romberg Test Positive: No Babinski Sign: Negative Right, Negative Left Heel to Toe Normal: Yes Differential Diagnoses: Migraine Review of Systems - Review Of Systems Constitutional: Reports: No symptoms Eyes: Reports: No symptoms Ears, Nose, Mouth, Throat: Reports: No symptoms Respiratory: Reports: No symptoms Cardiac: Reports: No symptoms GI: Reports: Nausea : Reports: No symptoms Musculoskeletal: Reports: No symptoms Skin: Reports: No symptoms Neurological: Reports: No symptoms Endocrine: Reports: No symptoms Hematologic/Lymphatic: Reports: No symptoms All Other Systems: Reviewed and Negative Past Medical History - Past Medical History Previously Healthy: Yes Endocrine: Reports: Dyslipidemia Cardiovascular: Reports: Hypertension Respiratory: Reports: None Hematological: Reports: None Gastrointestinal: Reports: Other (IBS) Genitourinary: Reports: None Neuro/Psych: Reports: Migraine, Anxiety, Depression Musculoskeletal: Reports: None Cancer: Reports: None Last Menstrual Period: hysterectomy Other Pertinent Past Medical History: IBS - Surgical History General Surgical History: Reports: Hysterectomy, Back Surgery, Other (NASAL SURG FOR SINUSES 05/13) - Family History Family History: Reports: Unknown - Social History Smoking Status: Current every day smoker, Heavy tobacco smoker Hx Substance Use: No Alcohol Screening: None - Immunizations Influenza Vaccine within 12 Months: No Pneumococcal Vaccine up to Date: No Physical Exam - Physical Exam Appearance: Well-appearing Pain Distress: Moderate Eyes: KORIN, EOMI, Conjunctiva clear ENT: Ears normal, Nose normal, Oropharynx normal Neck: Supple Respiratory: Airway patent, Breath sounds clear, Breath sounds equal, Respirations nonlabored Cardiovascular: RRR, Pulses normal, No rub, No murmur GI/: Soft, Nontender, No masses, Bowel sounds normal, No Organomegaly Musculoskeletal: Normal strength, ROM intact, No edema, No calf tenderness Skin: Warm, Dry, Normal color Neurological: Sensation intact, Motor intact, Reflexes intact, Cranial nerves intact, Alert, Oriented Psychiatric: Affect appropriate, Mood appropriate Re-Evaluation - Re-Evaluation Time of Re-Evaluation: 17:25 Status: Improved Vital Signs Stable: Yes Pain Level: 1 Appearance: NAD Lungs: Clear Skin: Warm and Dry Neuro: Alert and Oriented X3 CV: RRR Critical Care Note - Critical Care Note Total Time (mins): 0 Course - Course Orders, Labs, Meds: Orders Category Date Time Status Morphine Sulfate [Morphine 2 mg/ml Syringe] MEDS 11/21/17 17:03 Discontinued 4 mg IM ONCE STA Promethazine HCl [Phenergan 25 mg/ml Vial] MEDS 11/21/17 17:04 Stat 25 mg IM ONCE STA Medications Generic Name Dose Route Start Last Admin Trade Name Freq PRN Reason Stop Dose Admin Promethazine HCl 25 mg 11/21/17 17:04 Phenergan 25 Mg/Ml Vial IM 11/21/17 17:05 ONCE STA Discontinued Medications Generic Name Dose Route Start Last Admin Trade Name Yordy PRN Reason Stop Dose Admin Morphine Sulfate 4 mg 11/21/17 17:03 Morphine 2 Mg/Ml Syringe IM 11/21/17 17:04 ONCE STA Vital Signs: Temp Pulse Resp BP Pulse Ox 11/21/17 16:44 98.0 F 105 H 20 150/89 H 97 Departure - Departure Time of Disposition: 17:07 Disposition: HOME SELF-CARE Discharge Problem: Migraine Qualifiers: Migraine type: unspecified Status migrainosus presence: without status migrainosus Intractability: not intractable Qualified Code(s): G43.909 - Migraine, unspecified, not intractable, without status migrainosus Instructions: Migraine Headache (ED) Condition: Good Pt referred to PMD for follow-up: Yes Additional Instructions: f/u with pcp Allergies/Adverse Reactions: Allergies sumatriptan [From Imitrex] Adverse Reaction (Verified 11/21/17 16:50) trazodone Adverse Reaction (Verified 11/21/17 16:50) Home Medications: Ambulatory Orders Enalapril Maleate 10 mg PO DAILY 04/28/13 Furosemide [Lasix Tab] 40 mg PO QID 04/28/13 Pantoprazole Sodium [Protonix] 40 mg PO QDAC 04/28/13 Promethazine HCl [Phenergan Tab] 25 mg PO PRN PRN 04/28/13 Calcium Carbonate/Vitamin D3 [Calcium 600 + Vit D Caplet] 1 tab PO BID 07/24/14 Carbidopa/Levodopa [Carbidopa-Levodopa 25-100 Tab] 1 tab-cap PO BEDTIME Simvastatin [Zocor] 20 mg PO QPM 09/09/14 Hydrocodone/Acetaminophen [[place] 10-325 Tablet] 1 each PO Q6HR PRN #7 tablet Cyanocobalamin (Vitamin B-12) [Vitamin B-12] 1,000 mcg IJ ONCE #1 vial 06/15/16 Disposition Discussed With: Patient
== END 2017-11-21 18:11 | disposition home or self-care (01) ==
LOC: ED 16:42
DX: G43.909 Migraine, unspecified, not intractable, without status migrainosus (principal); F17.210 Nicotine dependence, cigarettes, uncomplicated
CPT/HCPCS: 96372; 99283

== ENCOUNTER 2017-12-25 14:52 | Emergency (ER) ==
[2017-12-25 14:56] VITALS: BP 160/107; TEMP 96.9; BMI 41.1
[2017-12-25] MEDS ORDERED: MORPHINE 2 MG/ML SYRINGE IM STA (15:00)
[2017-12-25] MEDS ORDERED: ZOFRAN 4 MG/2 ML IM STA (15:00)
--- NOTE | 2017-12-25 15:14 | ED.PDOC ---
General ED Provider: Dr. BOUCHRA GARAY Chief Complaint: Headache Stated Complaint: HEADACHE Time Seen by Physician: 15:00 Mode of Arrival: Walk-In Information Source: Patient Exam Limitations: No limitations Primary Care Provider: RADHA HALEY Nursing and Triage Documentation Reviewed and Agree: Yes Reviewed sepsis parameters & appropriate labs ordered?: Yes System Inflammatory Response Syndrome: Not Applicable Sepsis Protocol: For patient's 13 years and over: Temp is 96.8 and below OR 101 and greater Pulse >90 BPM Resp >20/minute Acutely Altered Mental Status Are patient's symptoms suggestive of a new infection, such as: -Pneumonia -Skin, Soft Tissue -Endocarditis -UTI -Bone, Joint Infection -Implantable Device -Acute Abdominal Infection -Wound Infection -Meningitis -Blood Stream Catheter Infection -Unknown System Inflammatory Response Syndrome: Not Applicable Neurological Complaint Exam - Headache Complaint/Exam Onset: Gradual Duration: 1 DAY Symptoms Are: Resolved Episodes Lasting: Hours Worst Headache Ever: No Initial Severity: Mild Current Severity: Mild Location: Left, Frontal, Temporal Character: Reports: Throbbing Aggravating: Reports: None Alleviating: Reports: None Associated Signs and Symptoms: Denies: Dizziness, Seizure, Nausea, Vomiting, Sinus pressure, Fever, Neck pain, Neck stiffness, Decreased LOC, Visual changes Related History: Reports: Similar episode Related Surgical History: Reports: None SAH Risk Factors: Reports: None Meningitis Risk Factors: Reports: None SDH Risk Factors: Reports: None Temporal Arteritis Risk Factors: Reports: None Normal Head CT Within Last 12 Months: Yes Fundoscopic Exam: Present: Normal Findings Papilledema Present: Yes Temporal Artery Tenderness: Present: None Sinus Tenderness: Present: None TMJ Tenderness: Present: None Glascow Coma Scale (see protocol): 15 Meningeal Signs Positive: No ROM Limited In: No Limitiations Focal Weakness: Present: None Focal Sensory Loss: Present: None Gait: Normal Nystagmus Present: Yes Gag Reflex Present: Yes [id number]-[id number]: Normal Findings Babinski Sign: Negative Right, Negative Left Review of Systems - Review Of Systems Constitutional: Reports: No symptoms Eyes: Reports: No symptoms Ears, Nose, Mouth, Throat: Reports: No symptoms Respiratory: Reports: No symptoms Cardiac: Reports: No symptoms GI: Reports: No symptoms : Reports: No symptoms Musculoskeletal: Reports: No symptoms Skin: Reports: No symptoms Neurological: Reports: Headache Endocrine: Reports: No symptoms Hematologic/Lymphatic: Reports: No symptoms All Other Systems: Reviewed and Negative Past Medical History - Past Medical History Previously Healthy: Yes Endocrine: Reports: Dyslipidemia Cardiovascular: Reports: Hypertension Respiratory: Reports: None Hematological: Reports: None Gastrointestinal: Reports: Other (IBS) Genitourinary: Reports: None Neuro/Psych: Reports: Migraine, Anxiety, Depression Musculoskeletal: Reports: None Cancer: Reports: None Last Menstrual Period: n/a Other Pertinent Past Medical History: IBS - Surgical History General Surgical History: Reports: Hysterectomy, Back Surgery, Other (NASAL SURG FOR SINUSES 05/13) - Family History Family History: Reports: Unknown - Social History Smoking Status: Current every day smoker, Heavy tobacco smoker Hx Substance Use: No Alcohol Screening: None - Immunizations Influenza Vaccine within 12 Months: No Pneumococcal Vaccine up to Date: No Physical Exam - Physical Exam Appearance: Well-appearing, No pain distress, Well-nourished Eyes: KORIN, EOMI, Conjunctiva clear ENT: Ears normal, Nose normal, Oropharynx normal Respiratory: Airway patent, Breath sounds clear, Breath sounds equal, Respirations nonlabored Cardiovascular: RRR, Pulses normal, No rub, No murmur GI/: Soft, Nontender, No masses, Bowel sounds normal, No Organomegaly Musculoskeletal: Normal strength, ROM intact, No edema, No calf tenderness Skin: Warm, Dry, Normal color Neurological: Sensation intact, Motor intact, Reflexes intact, Cranial nerves intact, Alert, Oriented Psychiatric: Affect appropriate, Mood appropriate Critical Care Note - Critical Care Note Total Time (mins): 0 Course - Course Orders, Labs, Meds: Orders Category Date Time Status Morphine Sulfate [Morphine 2 mg/ml Syringe] MEDS 12/25/17 15:00 Discontinued 4 mg IM ONCE STA Ondansetron HCl/Pf [Zofran 4 mg/2 ml] MEDS 12/25/17 15:00 Discontinued 4 mg IM ONCE STA Medications Discontinued Medications Generic Name Dose Route Start Last Admin Trade Name Freq PRN Reason Stop Dose Admin Morphine Sulfate 4 mg 12/25/17 15:00 Morphine 2 Mg/Ml Syringe IM 12/25/17 15:01 ONCE STA Ondansetron HCl 4 mg 12/25/17 15:00 Zofran 4 Mg/2 Ml IM 12/25/17 15:01 ONCE STA Vital Signs: Temp Pulse Resp BP Pulse Ox 12/25/17 14:53 96.9 F L 77 20 160/107 H 98 Departure - Departure Time of Disposition: 15:15 (SEEN WITH KAYLEY AT ALL TIMES . NEGATIVE TRAUMA PAIN IS SIMILAR TO PRIOR ATTACKS ) Disposition: HOME SELF-CARE Discharge Problem: Headache Instructions: Migraine Headache (ED) Condition: Good Pt referred to PMD for follow-up: Yes IPMP verified?: Yes Additional Instructions: Please call your Family Physician as soon as possible to schedule a follow-up appointment. Allergies/Adverse Reactions: Allergies sumatriptan [From Imitrex] Adverse Reaction (Verified 12/25/17 14:56) trazodone Adverse Reaction (Verified 12/25/17 14:56) Home Medications: Ambulatory Orders Enalapril Maleate 10 mg PO DAILY 04/28/13 Furosemide [Lasix Tab] 40 mg PO QID 04/28/13 Pantoprazole Sodium [Protonix] 40 mg PO QDAC 04/28/13 Promethazine HCl [Phenergan Tab] 25 mg PO PRN PRN 04/28/13 Calcium Carbonate/Vitamin D3 [Calcium 600 + Vit D Caplet] 1 tab PO BID 07/24/14 Carbidopa/Levodopa [Carbidopa-Levodopa 25-100 Tab] 1 tab-cap PO BEDTIME Simvastatin [Zocor] 20 mg PO QPM 09/09/14 Hydrocodone/Acetaminophen [[place] 10-325 Tablet] 1 each PO Q6HR PRN #7 tablet Cyanocobalamin (Vitamin B-12) [Vitamin B-12] 1,000 mcg IJ ONCE #1 vial 06/15/16
== END 2017-12-25 15:55 | disposition home or self-care (01) ==
LOC: ED 14:52
DX: R51 Headache (principal); F17.210 Nicotine dependence, cigarettes, uncomplicated
CPT/HCPCS: 96372; 99283

== ENCOUNTER 2018-01-20 16:26 | Emergency (ER) ==
[2018-01-20 16:38] VITALS: BP 149/83; TEMP 98.1; BMI 42.4
--- NOTE | 2018-01-20 17:06 | ED.PDOC ---
General ED Provider: Dr. BOUCHRA GARAY Chief Complaint: Headache Stated Complaint: headache Time Seen by Physician: 16:30 (headache occure at home no inury seen withLIBBY AT ALL TIMES ) Mode of Arrival: Walk-In Information Source: Patient Exam Limitations: No limitations Primary Care Provider: RADHA HALEY Nursing and Triage Documentation Reviewed and Agree: Yes Reviewed sepsis parameters & appropriate labs ordered?: Yes System Inflammatory Response Syndrome: Not Applicable Sepsis Protocol: For patient's 13 years and over: Temp is 96.8 and below OR 101 and greater Pulse >90 BPM Resp >20/minute Acutely Altered Mental Status Are patient's symptoms suggestive of a new infection, such as: -Pneumonia -Skin, Soft Tissue -Endocarditis -UTI -Bone, Joint Infection -Implantable Device -Acute Abdominal Infection -Wound Infection -Meningitis -Blood Stream Catheter Infection -Unknown System Inflammatory Response Syndrome: Not Applicable Neurological Complaint Exam - Headache Complaint/Exam Onset: Gradual Duration: TODAY Symptoms Are: Still present Timing: Constant Episodes Lasting: Hours Worst Headache Ever: No Initial Severity: Moderate Current Severity: Moderate Location: Frontal, Temporal, Parietal Character: Reports: Throbbing Aggravating: Reports: None Alleviating: Reports: None Associated Signs and Symptoms: Reports: Nausea. Denies: Dizziness, Seizure, Vomiting, Sinus pressure, Fever, Neck pain, Neck stiffness, Decreased LOC, Visual changes Related History: Reports: Similar episode Related Surgical History: Reports: None SAH Risk Factors: Reports: None Meningitis Risk Factors: Reports: None SDH Risk Factors: Reports: None Temporal Arteritis Risk Factors: Reports: Female, Normal Head CT Within Last 12 Months: Yes Fundoscopic Exam: Present: Normal Findings Papilledema Present: No Temporal Artery Tenderness: Present: None Sinus Tenderness: Present: None TMJ Tenderness: Present: None Glascow Coma Scale (see protocol): 15 Meningeal Signs Positive: No Pain on Passive Flexion-Positive Kernig's: No ROM Limited In: No Limitiations Focal Weakness: Present: None Focal Sensory Loss: Present: None Gait: Normal Nystagmus Present: No Gag Reflex Present: No [id number]: Normal Findings Babinski Sign: Negative Right, Negative Left Differential Diagnoses: Migraine Review of Systems - Review Of Systems Constitutional: Reports: No symptoms Eyes: Reports: No symptoms Ears, Nose, Mouth, Throat: Reports: No symptoms Respiratory: Reports: No symptoms Cardiac: Reports: No symptoms GI: Reports: No symptoms : Reports: No symptoms Musculoskeletal: Reports: No symptoms Skin: Reports: No symptoms Neurological: Reports: Headache Endocrine: Reports: No symptoms Hematologic/Lymphatic: Reports: No symptoms All Other Systems: Reviewed and Negative Past Medical History - Past Medical History Previously Healthy: Yes Endocrine: Reports: Dyslipidemia Cardiovascular: Reports: Hypertension Respiratory: Reports: None Hematological: Reports: None Gastrointestinal: Reports: Other (IBS) Genitourinary: Reports: None Neuro/Psych: Reports: Migraine, Anxiety, Depression Musculoskeletal: Reports: None Cancer: Reports: None Last Menstrual Period: hysterectomy Other Pertinent Past Medical History: IBS - Surgical History General Surgical History: Reports: Hysterectomy, Back Surgery, Other (NASAL SURG FOR SINUSES 05/13) - Family History Family History: Reports: Unknown - Social History Smoking Status: Current every day smoker, Heavy tobacco smoker Hx Substance Use: No Alcohol Screening: None - Immunizations Influenza Vaccine within 12 Months: No Pneumococcal Vaccine up to Date: No Physical Exam - Physical Exam Appearance: Well-appearing, No pain distress, Well-nourished Eyes: KORIN, EOMI, Conjunctiva clear ENT: Ears normal, Nose normal, Oropharynx normal Respiratory: Airway patent, Breath sounds clear, Breath sounds equal, Respirations nonlabored Cardiovascular: RRR, Pulses normal, No rub, No murmur GI/: Soft, Nontender, No masses, Bowel sounds normal, No Organomegaly Musculoskeletal: Normal strength, ROM intact, No edema, No calf tenderness Skin: Warm, Dry, Normal color Neurological: Sensation intact, Motor intact, Reflexes intact, Cranial nerves intact, Alert, Oriented Psychiatric: Affect appropriate, Mood appropriate Critical Care Note - Critical Care Note Total Time (mins): 0 Course - Course Vital Signs: Temp Pulse Resp BP Pulse Ox 01/20/18 16:28 98.1 F 95 H 20 149/83 H 99 Departure - Departure Time of Disposition: 17:06 Disposition: HOME SELF-CARE Discharge Problem: Headache Instructions: Migraine Headache (ED), General Headache (ED) Condition: Good Pt referred to PMD for follow-up: Yes IPMP verified?: No Additional Instructions: Please call your Family Physician as soon as possible to schedule a follow-up appointment. Allergies/Adverse Reactions: Allergies sumatriptan [From Imitrex] Adverse Reaction (Verified 01/20/18 16:38) topiramate [From Topamax] Adverse Reaction (Verified 01/20/18 16:38) trazodone Adverse Reaction (Verified 01/20/18 16:38) Home Medications: Ambulatory Orders Enalapril Maleate 10 mg PO DAILY 04/28/13 Furosemide [Lasix Tab] 40 mg PO QID 04/28/13 Pantoprazole Sodium [Protonix] 40 mg PO QDAC 04/28/13 Promethazine HCl [Phenergan Tab] 25 mg PO PRN PRN 04/28/13 Calcium Carbonate/Vitamin D3 [Calcium 600 + Vit D Caplet] 1 tab PO BID 07/24/14 Carbidopa/Levodopa [Carbidopa-Levodopa 25-100 Tab] 1 tab-cap PO BEDTIME Hydrocodone/Acetaminophen [[place] 10-325 Tablet] 1 each PO Q6HR PRN #7 tablet Cyanocobalamin (Vitamin B-12) [Vitamin B-12] 1,000 mcg IJ ONCE #1 vial 06/15/16 Disposition Discussed With: Patient
[2018-01-20] MEDS ORDERED: ZOFRAN 4 MG/2 ML IM STA (17:07)
[2018-01-20] MEDS ORDERED: MORPHINE 2 MG/ML SYRINGE IM STA (17:07)
== END 2018-01-20 18:10 | disposition home or self-care (01) ==
LOC: ED 16:26
DX: R51 Headache (principal); F17.210 Nicotine dependence, cigarettes, uncomplicated
CPT/HCPCS: 96372; 99283

== ENCOUNTER 2018-02-22 18:11 | Emergency (ER) ==
[2018-02-22 18:16] VITALS: BP 145/90; TEMP 97.7; BMI 41.7
--- NOTE | 2018-02-22 18:32 | ED.PDOC ---
General ED Provider: Dr. BOUCHRA GARAY Chief Complaint: Headache Stated Complaint: headache Time Seen by Physician: 18:17 Mode of Arrival: Walk-In Information Source: Patient Exam Limitations: No limitations Primary Care Provider: RADHA HALEY Nursing and Triage Documentation Reviewed and Agree: Yes Reviewed sepsis parameters & appropriate labs ordered?: Yes System Inflammatory Response Syndrome: Not Applicable Sepsis Protocol: For patient's 13 years and over: Temp is 96.8 and below OR 101 and greater Pulse >90 BPM Resp >20/minute Acutely Altered Mental Status Are patient's symptoms suggestive of a new infection, such as: -Pneumonia -Skin, Soft Tissue -Endocarditis -UTI -Bone, Joint Infection -Implantable Device -Acute Abdominal Infection -Wound Infection -Meningitis -Blood Stream Catheter Infection -Unknown System Inflammatory Response Syndrome: Not Applicable Neurological Complaint Exam - Headache Complaint/Exam Onset: Gradual Duration: 1 day Symptoms Are: Still present Timing: Constant Episodes Lasting: Hours Worst Headache Ever: No Initial Severity: Moderate Current Severity: Moderate Location: Temporal Character: Reports: Throbbing Aggravating: Reports: None Alleviating: Reports: None Associated Signs and Symptoms: Denies: Dizziness, Seizure, Nausea, Vomiting, Sinus pressure, Fever, Neck pain, Neck stiffness, Decreased LOC, Visual changes Related History: Reports: Similar episode Related Surgical History: Reports: None SAH Risk Factors: Reports: None Meningitis Risk Factors: Reports: None SDH Risk Factors: Reports: None Temporal Arteritis Risk Factors: Reports: Female, Normal Head CT Within Last 12 Months: Yes (mri 2 weeks ago) Fundoscopic Exam: Present: Normal Findings Temporal Artery Tenderness: Present: None Sinus Tenderness: Present: None TMJ Tenderness: Present: None Glascow Coma Scale (see protocol): 15 Pain on Passive Flexion-Positive Kernig's: Yes ROM Limited In: No Limitiations Focal Weakness: Present: None Focal Sensory Loss: Present: None Gait: Normal Nystagmus Present: No Gag Reflex Present: Yes Babinski Sign: Negative Right, Negative Left Differential Diagnoses: Sinus Headache, Tension Headache Review of Systems - Review Of Systems Constitutional: Reports: No symptoms Eyes: Reports: No symptoms Ears, Nose, Mouth, Throat: Reports: No symptoms Respiratory: Reports: No symptoms Cardiac: Reports: No symptoms GI: Reports: No symptoms : Reports: No symptoms Musculoskeletal: Reports: No symptoms Skin: Reports: No symptoms Neurological: Reports: Headache Endocrine: Reports: No symptoms Hematologic/Lymphatic: Reports: No symptoms All Other Systems: Reviewed and Negative Past Medical History - Past Medical History Previously Healthy: Yes Endocrine: Reports: Dyslipidemia Cardiovascular: Reports: Hypertension Respiratory: Reports: None Hematological: Reports: None Gastrointestinal: Reports: Other (IBS) Genitourinary: Reports: None Neuro/Psych: Reports: Migraine, Anxiety, Depression Musculoskeletal: Reports: None Cancer: Reports: None Last Menstrual Period: hysterectomy Other Pertinent Past Medical History: IBS - Surgical History General Surgical History: Reports: Hysterectomy, Back Surgery, Other (NASAL SURG FOR SINUSES 05/13) - Family History Family History: Reports: Unknown - Social History Smoking Status: Current every day smoker, Heavy tobacco smoker Hx Substance Use: No Alcohol Screening: None - Immunizations Influenza Vaccine within 12 Months: No Pneumococcal Vaccine up to Date: No Physical Exam - Physical Exam Appearance: Well-appearing, No pain distress, Well-nourished Eyes: KORIN, EOMI, Conjunctiva clear ENT: Ears normal, Nose normal, Oropharynx normal Respiratory: Airway patent, Breath sounds clear, Breath sounds equal, Respirations nonlabored Cardiovascular: RRR, Pulses normal, No rub, No murmur GI/: Soft, Nontender, No masses, Bowel sounds normal, No Organomegaly Musculoskeletal: Normal strength, ROM intact, No edema, No calf tenderness Skin: Warm, Dry, Normal color Neurological: Sensation intact, Motor intact, Reflexes intact, Cranial nerves intact, Alert, Oriented Psychiatric: Affect appropriate, Mood appropriate Critical Care Note - Critical Care Note Total Time (mins): 0 Course - Course Vital Signs: Temp Pulse Resp BP Pulse Ox 02/22/18 18:11 97.7 F 114 H 20 145/90 H 98 Departure - Departure Time of Disposition: 18:32 Disposition: HOME SELF-CARE Discharge Problem: Headache Instructions: Acute Headache (DC) Condition: Good Pt referred to PMD for follow-up: Yes IPMP verified?: No Additional Instructions: Please call your Family Physician as soon as possible to schedule a follow-up appointment. Allergies/Adverse Reactions: Allergies sumatriptan [From Imitrex] Adverse Reaction (Verified 02/22/18 18:18) topiramate [From Topamax] Adverse Reaction (Verified 02/22/18 18:18) trazodone Adverse Reaction (Verified 02/22/18 18:18) Home Medications: Ambulatory Orders Enalapril Maleate 10 mg PO DAILY 04/28/13 Furosemide [Lasix Tab] 40 mg PO QID 04/28/13 Pantoprazole Sodium [Protonix] 40 mg PO QDAC 04/28/13 Promethazine HCl [Phenergan Tab] 25 mg PO PRN PRN 04/28/13 Calcium Carbonate/Vitamin D3 [Calcium 600 + Vit D Caplet] 1 tab PO BID 07/24/14 Carbidopa/Levodopa [Carbidopa-Levodopa 25-100 Tab] 1 tab-cap PO BEDTIME Hydrocodone/Acetaminophen [[place] 10-325 Tablet] 1 each PO Q6HR PRN #7 tablet Cyanocobalamin (Vitamin B-12) [Vitamin B-12] 1,000 mcg IJ ONCE #1 vial 06/15/16
[2018-02-22] MEDS ORDERED: ZOFRAN 4 MG/2 ML IM STA (18:33)
[2018-02-22] MEDS ORDERED: MORPHINE 2 MG/ML SYRINGE IM STA (18:34)
[2018-02-22] MEDS ORDERED: MORPHINE 2 MG/ML SYRINGE ONE ×2 (18:39→18:44)
== END 2018-02-22 19:13 | disposition home or self-care (01) ==
LOC: ED 18:11
DX: R51 Headache (principal); F17.210 Nicotine dependence, cigarettes, uncomplicated
CPT/HCPCS: 96372; 99283

== ENCOUNTER 2018-04-17 17:43 | Emergency (ER) ==
[2018-04-17 17:50] VITALS: BP 123/82; TEMP 98.6; BMI 41.8
[2018-04-17] MEDS ORDERED: PHENERGAN 25 MG/ML VIAL IM STA (18:00)
--- NOTE | 2018-04-17 18:03 | ED.PDOC ---
General ED Provider: Dr. BOUCHRA GARAY Chief Complaint: Headache Stated Complaint: HEADACHE Time Seen by Physician: 18:00 (SEEN WITH HALLIE AT ALL TIMES ) Information Source: Patient Exam Limitations: No limitations Primary Care Provider: RADHA HALEY Nursing and Triage Documentation Reviewed and Agree: Yes Reviewed sepsis parameters & appropriate labs ordered?: Yes System Inflammatory Response Syndrome: Not Applicable Sepsis Protocol: For patient's 13 years and over: Temp is 96.8 and below OR 101 and greater Pulse >90 BPM Resp >20/minute Acutely Altered Mental Status Are patient's symptoms suggestive of a new infection, such as: -Pneumonia -Skin, Soft Tissue -Endocarditis -UTI -Bone, Joint Infection -Implantable Device -Acute Abdominal Infection -Wound Infection -Meningitis -Blood Stream Catheter Infection -Unknown System Inflammatory Response Syndrome: Not Applicable Neurological Complaint Exam - Headache Complaint/Exam Onset: Gradual Duration: 1 DAY Symptoms Are: Still present Timing: Constant Episodes Lasting: Hours Worst Headache Ever: No Initial Severity: Moderate Current Severity: Moderate Location: Left, Frontal, Temporal Character: Reports: Throbbing Aggravating: Reports: None Alleviating: Reports: None Associated Signs and Symptoms: Denies: Dizziness, Seizure, Nausea, Vomiting, Sinus pressure, Fever, Neck pain, Neck stiffness, Decreased LOC, Visual changes Related History: Reports: Similar episode Related Surgical History: Reports: None SAH Risk Factors: Reports: None Meningitis Risk Factors: Reports: None SDH Risk Factors: Reports: None Temporal Arteritis Risk Factors: Reports: Female, Normal Head CT Within Last 12 Months: Yes Fundoscopic Exam: Present: Normal Findings Papilledema Present: No Temporal Artery Tenderness: Present: None Sinus Tenderness: Present: None TMJ Tenderness: Present: None Glascow Coma Scale (see protocol): 15 Meningeal Signs Positive: No Pain on Passive Flexion-Positive Kernig's: No ROM Limited In: No Limitiations Focal Weakness: Present: None Focal Sensory Loss: Present: None Gait: Normal Nystagmus Present: No Gag Reflex Present: No Differential Diagnoses: Migraine Review of Systems - Review Of Systems Constitutional: Reports: No symptoms Eyes: Reports: No symptoms Ears, Nose, Mouth, Throat: Reports: No symptoms Respiratory: Reports: No symptoms Cardiac: Reports: No symptoms GI: Reports: No symptoms : Reports: No symptoms Musculoskeletal: Reports: No symptoms Skin: Reports: No symptoms Neurological: Reports: Headache Endocrine: Reports: No symptoms Hematologic/Lymphatic: Reports: No symptoms All Other Systems: Reviewed and Negative Past Medical History - Past Medical History Previously Healthy: Yes Endocrine: Reports: Dyslipidemia Cardiovascular: Reports: Hypertension Respiratory: Reports: None Hematological: Reports: None Gastrointestinal: Reports: Other (IBS) Genitourinary: Reports: None Neuro/Psych: Reports: Migraine, Anxiety, Depression Musculoskeletal: Reports: None Cancer: Reports: None Last Menstrual Period: hysterectomy Other Pertinent Past Medical History: IBS - Surgical History General Surgical History: Reports: Hysterectomy, Back Surgery, Other (NASAL SURG FOR SINUSES 05/13) - Family History Family History: Reports: Unknown - Social History Smoking Status: Former smoker Hx Substance Use: No Alcohol Screening: None - Immunizations Influenza Vaccine within 12 Months: No Pneumococcal Vaccine up to Date: No Physical Exam - Physical Exam Appearance: Well-appearing, No pain distress, Well-nourished Eyes: KORIN, EOMI, Conjunctiva clear ENT: Ears normal, Nose normal, Oropharynx normal Respiratory: Airway patent, Breath sounds clear, Breath sounds equal, Respirations nonlabored Cardiovascular: RRR, Pulses normal, No rub, No murmur GI/: Soft, Nontender, No masses, Bowel sounds normal, No Organomegaly Musculoskeletal: Normal strength, ROM intact, No edema, No calf tenderness Skin: Warm, Dry, Normal color Neurological: Sensation intact, Motor intact, Reflexes intact, Cranial nerves intact, Alert, Oriented Psychiatric: Affect appropriate, Mood appropriate Critical Care Note - Critical Care Note Total Time (mins): 0 Course - Course Orders, Labs, Meds: Orders Category Date Time Status Promethazine HCl [Phenergan 25 mg/ml Vial] MEDS 04/17/18 18:00 Stat 50 mg IM ONCE STA Vital Signs: Temp Pulse Resp BP Pulse Ox 04/17/18 17:44 98.6 F 90 20 123/82 98 Departure - Departure Time of Disposition: 19:00 (STITCH WHEELER WAS PRESENT ATLL TIME()) Disposition: HOME SELF-CARE Discharge Problem: Headache Instructions: Migraine Headache (ED) Condition: Good Pt referred to PMD for follow-up: Yes IPMP verified?: No Additional Instructions: Please call your Family Physician as soon as possible to schedule a follow-up appointment. Allergies/Adverse Reactions: Allergies sumatriptan [From Imitrex] Adverse Reaction (Verified 04/17/18 17:50) topiramate [From Topamax] Adverse Reaction (Verified 04/17/18 17:50) trazodone Adverse Reaction (Verified 04/17/18 17:50) Home Medications: Ambulatory Orders Enalapril Maleate 10 mg PO DAILY 04/28/13 Furosemide [Lasix Tab] 40 mg PO QID 04/28/13 Pantoprazole Sodium [Protonix] 40 mg PO QDAC 04/28/13 Promethazine HCl [Phenergan Tab] 25 mg PO PRN PRN 04/28/13 Calcium Carbonate/Vitamin D3 [Calcium 600 + Vit D Caplet] 1 tab PO BID 07/24/14 Carbidopa/Levodopa [Carbidopa-Levodopa 25-100 Tab] 1 tab-cap PO BEDTIME Hydrocodone/Acetaminophen [[place] 10-325 Tablet] 1 each PO Q6HR PRN #7 tablet Cyanocobalamin (Vitamin B-12) [Vitamin B-12] 1,000 mcg IJ ONCE #1 vial 06/15/16
== END 2018-04-17 18:33 | disposition home or self-care (01) ==
LOC: ED 17:43
DX: G43.909 Migraine, unspecified, not intractable, without status migrainosus (principal)
CPT/HCPCS: 96372; 99283

== ENCOUNTER 2018-04-22 20:14 | Emergency (ER) ==
[2018-04-22 20:24] VITALS: BP 125/87; TEMP 98; BMI 40.8
[2018-04-22] MEDS ORDERED: TYLENOL PO STA (20:43)
[2018-04-22] MEDS ORDERED: SOLU-MEDROL 125 MG IVP STA (20:43)
[2018-04-22] MEDS ORDERED: BENADRYL IVP STA (20:44)
[2018-04-22] MEDS ORDERED: SODIUM CHLORIDE 1,000 ML IV STA (20:44)
--- NOTE | 2018-04-22 21:27 | ED.PDOC ---
General ED Provider: Dr. KAREEN GILMORE Chief Complaint: Rash Stated Complaint: Patient states she has been taking Doxycyline for Acne and was outside in the sun today. She started getting itchy on the forearm on the sun exposed area. Took benadryl but still continued to itch. Also complains of headace and states has not had much to drink today. Time Seen by Physician: 20:20 Mode of Arrival: Walk-In Information Source: Patient Exam Limitations: No limitations Primary Care Provider: RADHA HALEY Nursing and Triage Documentation Reviewed and Agree: Yes Reviewed sepsis parameters & appropriate labs ordered?: No System Inflammatory Response Syndrome: Not Applicable Sepsis Protocol: For patient's 13 years and over: Temp is 96.8 and below OR 101 and greater Pulse >90 BPM Resp >20/minute Acutely Altered Mental Status Are patient's symptoms suggestive of a new infection, such as: -Pneumonia -Skin, Soft Tissue -Endocarditis -UTI -Bone, Joint Infection -Implantable Device -Acute Abdominal Infection -Wound Infection -Meningitis -Blood Stream Catheter Infection -Unknown System Inflammatory Response Syndrome: Not Applicable Skin Complaint Exam - Skin Rash/Itching Complaint/Exam Onset/Duration: 1 day Symptoms Are: Still present Current Severity: Moderate Location: Forearm. Potential Exposures: Reports: Medicines (Doxycycline with sun exposure. ) Aggravating: Reports: Heat (sunshinte ) Associated Signs and Symptoms: Denies: Difficulty breathing, Fever, Chills Skin Findings: Present: Urticaria Body Picture: 1 - Rash with itching. 2 - Rash with itching. Differential Diagnoses: Contact Dermatitis, Drug Rash, Urticaria Review of Systems - Review Of Systems Constitutional: Reports: No symptoms Eyes: Reports: No symptoms Ears, Nose, Mouth, Throat: Reports: No symptoms Respiratory: Reports: No symptoms Cardiac: Reports: No symptoms GI: Reports: No symptoms : Reports: No symptoms Musculoskeletal: Reports: No symptoms Skin: Reports: Rash Neurological: Reports: Anxiety, Headache Endocrine: Reports: No symptoms Hematologic/Lymphatic: Reports: No symptoms All Other Systems: Reviewed and Negative Past Medical History - Past Medical History Previously Healthy: Yes Endocrine: Reports: Dyslipidemia Cardiovascular: Reports: Hypertension Respiratory: Reports: None Hematological: Reports: None Gastrointestinal: Reports: Other (IBS) Genitourinary: Reports: None Neuro/Psych: Reports: Migraine, Anxiety, Depression Musculoskeletal: Reports: None Cancer: Reports: None Last Menstrual Period: hysterectomy 2007 Other Pertinent Past Medical History: IBS - Surgical History General Surgical History: Reports: Hysterectomy, Back Surgery, Other (NASAL SURG FOR SINUSES 05/13) - Family History Family History: Reports: Unknown - Social History Smoking Status: Former smoker Hx Substance Use: No Alcohol Screening: None - Immunizations Tetanus Shot up to Date: Yes Influenza Vaccine within 12 Months: No Pneumococcal Vaccine up to Date: No Physical Exam - Physical Exam Appearance: Ill-appearing, Obese Ill-appearing: Mild Pain Distress: Moderate ENT: Oropharynx normal (except Aphthous ulcer at the floor of the mouth. ) Neck: Supple Respiratory: Airway patent, Breath sounds clear, Breath sounds equal, Respirations nonlabored Cardiovascular: RRR, Pulses normal, No rub, No murmur GI/: Soft, Nontender, No masses, Bowel sounds normal, No Organomegaly Musculoskeletal: Normal strength, ROM intact, No edema, No calf tenderness Skin: Warm, Dry Neurological: Sensation intact, Motor intact, Reflexes intact, Cranial nerves intact, Alert, Oriented Psychiatric: Anxious Critical Care Note - Critical Care Note Total Time (mins): 0 Course - Course Orders, Labs, Meds: Orders Category Date Time Status IV [ED IV/MEDIPORT/POWERPORT] .ONCE EMERGENCY 04/22/18 21:10 Active 0.9 % Sodium Chloride [Saline Flush] MEDS 04/22/18 21:10 Ordered 1 syr IVF PRN PRN Acetaminophen [Tylenol] MEDS 04/22/18 20:43 Discontinued 1,000 mg PO ONCE STA Diphenhydramine Inj [Benadryl] MEDS 04/22/18 20:44 Discontinued 25 mg IVP ONCE STA Lidocaine HCl [Lidocaine Viscous 2% 15 ml Ud] MEDS 04/22/18 21:38 Discontinued 15 ml MUCOUSMEMB ONCE STA Methylprednisolone Sod Succ/Pf [Solu-Medrol 125 mg] MEDS 04/22/18 20:43 Discontinued 125 mg IVP ONCE STA Sodium Chloride 0.9% [Sodium Chloride] 1,000 ml MEDS 04/22/18 20:44 Discontinued IV BOLUS Medications Generic Name Dose Route Start Last Admin Trade Name Freq PRN Reason Stop Dose Admin Sodium Chloride 1 syr 04/22/18 21:10 Saline Flush IVF PRN PRN To flush IV Discontinued Medications Generic Name Dose Route Start Last Admin Trade Name Freq PRN Reason Stop Dose Admin Acetaminophen 1,000 mg 04/22/18 20:43 04/22/18 21:02 Tylenol PO 04/22/18 20:44 1,000 mg ONCE STA Administration Diphenhydramine HCl 25 mg 04/22/18 20:44 04/22/18 21:01 Benadryl IVP 04/22/18 20:45 25 mg ONCE STA Administration Sodium Chloride 1,000 mls @ 1,000 mls/hr 04/22/18 20:44 04/22/18 21:01 Sodium Chloride IV 04/22/18 21:43 1,000 mls/hr BOLUS STA Administration Lidocaine HCl 15 ml 04/22/18 21:38 04/22/18 23:04 Lidocaine Viscous 2% 15 Ml Ud MUCOUSMEMB 04/22/18 21:39 15 ml ONCE STA Administration Methylprednisolone Sodium Succinate 125 mg 04/22/18 20:43 04/22/18 21:02 Solu-Medrol 125 Mg IVP 04/22/18 20:44 125 mg ONCE STA Administration Vital Signs: Temp Pulse Resp BP Pulse Ox 04/22/18 20:16 98 F 81 20 125/87 98 Departure - Departure Time of Disposition: 21:30 Disposition: HOME SELF-CARE Discharge Problem: Drug rash, Photosensitization due to sunlight Instructions: Acute Rash (ED), Photosensitivity (ED) Condition: Fair Pt referred to PMD for follow-up: Yes IPMP verified?: No Additional Instructions: Stop taking Doxycycline until you see your doctor Take Medrol dose pack as prescribed. Continue home Benadryl. Use over the counter oralgel as needed for Aphthous ulcer Prescriptions: Methylprednisolone [Medrol Dosepak] 4 mg PO DIRECTED #1 pkg Allergies/Adverse Reactions: Allergies sumatriptan [From Imitrex] Adverse Reaction (Verified 04/22/18 20:24) topiramate [From Topamax] Adverse Reaction (Verified 04/22/18 20:24) trazodone Adverse Reaction (Verified 04/22/18 20:24) Home Medications: Ambulatory Orders Enalapril Maleate 10 mg PO DAILY 04/28/13 Furosemide [Lasix Tab] 40 mg PO QID 04/28/13 Pantoprazole Sodium [Protonix] 40 mg PO QDAC 04/28/13 Promethazine HCl [Phenergan Tab] 25 mg PO PRN PRN 04/28/13 Calcium Carbonate/Vitamin D3 [Calcium 600 + Vit D Caplet] 1 tab PO BID 07/24/14 Carbidopa/Levodopa [Carbidopa-Levodopa 25-100 Tab] 1 tab-cap PO BEDTIME Hydrocodone/Acetaminophen [[place] 10-325 Tablet] 1 each PO Q6HR PRN #7 tablet Cyanocobalamin (Vitamin B-12) [Vitamin B-12] 1,000 mcg IJ ONCE #1 vial 06/15/16 Doxycycline Hyclate 100 mg PO BID 04/22/18 Methylprednisolone [Medrol Dosepak] 4 mg PO DIRECTED #1 pkg 04/22/18 Disposition Discussed With: Patient
[2018-04-22] MEDS ORDERED: LIDOCAINE VISCOUS 2% 15 ML UD MUCOUSMEMB STA (21:38)
== END 2018-04-22 23:35 | disposition home or self-care (01) ==
LOC: ED 20:14
DX: L27.0 Generalized skin eruption due to drugs and medicaments taken internally (principal); T36.4X5A Adverse effect of tetracyclines, initial encounter; R51 Headache
CPT/HCPCS: 96361; 96374; 96375; 99283

== ENCOUNTER 2018-04-30 13:45 | Emergency (ER) | payer OTHER ==
[2018-04-30 13:50] VITALS: BP 113/75; TEMP 97.8; BMI 41.1
[2018-04-30] MEDS ORDERED: ROCEPHIN 1 GM in SODIUM CHLORIDE 50 ML IV STA (14:58)
[2018-04-30] MEDS ORDERED: TORADOL IM STA (14:58)
[2018-04-30] MEDS ORDERED: BOOSTRIX IM ONE (14:58)
[2018-04-30] MEDS ORDERED: LIDOCAINE HCL 1% SDV SUBCUT STA (14:58)
--- NOTE | 2018-04-30 14:58 | ED.PDOC ---
General ED Provider: Dr. TEJA ACE Chief Complaint: Hand Laceration Stated Complaint: Was cutting up chicken and accidently cut Lt Hand -between Thumb and index finger at interdigital space/ No motor or sensory compromise. Time Seen by Physician: 13:50 Mode of Arrival: Walk-In Information Source: Patient, Assisted Living Primary Care Provider: RADHA HALEY Nursing and Triage Documentation Reviewed and Agree: Yes Reviewed sepsis parameters & appropriate labs ordered?: Yes System Inflammatory Response Syndrome: Acutely Altered Mental Status Sepsis Protocol: For patient's 13 years and over: Temp is 96.8 and below OR 101 and greater Pulse >90 BPM Resp >20/minute Acutely Altered Mental Status Are patient's symptoms suggestive of a new infection, such as: -Pneumonia -Skin, Soft Tissue -Endocarditis -UTI -Bone, Joint Infection -Implantable Device -Acute Abdominal Infection -Wound Infection -Meningitis -Blood Stream Catheter Infection -Unknown Trauma/Injury Complaint Exam - Trauma Complaint/Exam Location of Pain or Injury: Reports: LUE (Hand; 1st 2nd interphalangeal space3 cm ventral-to palmar /) Review of Systems - Review Of Systems Constitutional: Reports: No symptoms Eyes: Reports: No symptoms Ears, Nose, Mouth, Throat: Reports: No symptoms Respiratory: Reports: No symptoms Cardiac: Reports: No symptoms GI: Reports: No symptoms : Reports: No symptoms Musculoskeletal: Reports: Back pain, Other (lt hand pain 1st -2nd interdigital space laceration ) Skin: Reports: No symptoms Neurological: Reports: No symptoms Endocrine: Reports: No symptoms Hematologic/Lymphatic: Reports: No symptoms All Other Systems: Reviewed and Negative Past Medical History - Past Medical History Previously Healthy: Yes Endocrine: Reports: Dyslipidemia Cardiovascular: Reports: Hypertension Respiratory: Reports: None Hematological: Reports: None Gastrointestinal: Reports: Other (IBS) Genitourinary: Reports: None Neuro/Psych: Reports: Migraine, Anxiety, Depression Musculoskeletal: Reports: None Cancer: Reports: None Last Menstrual Period: unknown Other Pertinent Past Medical History: IBS - Surgical History General Surgical History: Reports: Hysterectomy, Back Surgery, Other (NASAL SURG FOR SINUSES 05/13) - Family History Family History: Reports: Unknown - Social History Smoking Status: Former smoker Hx Substance Use: No Alcohol Screening: None - Immunizations Tetanus Shot up to Date: No (unknown) Influenza Vaccine within 12 Months: No Pneumococcal Vaccine up to Date: No Physical Exam - Physical Exam Appearance: Well-appearing, No pain distress, Well-nourished Eyes: KORIN, EOMI, Conjunctiva clear ENT: Ears normal, Nose normal, Oropharynx normal Respiratory: Airway patent, Breath sounds clear, Breath sounds equal, Respirations nonlabored Cardiovascular: RRR, Pulses normal, No rub, No murmur GI/: Soft, Nontender, No masses, Bowel sounds normal, No Organomegaly Musculoskeletal: Normal strength (3 cm laceration Lt hand interdigital space between 1st /2nd phalangeal regions / bleeding controlled/extending subcut region /motor intact), ROM intact, No edema, No calf tenderness Skin: Warm, Dry, Normal color Neurological: Sensation intact, Motor intact, Reflexes intact, Cranial nerves intact, Alert, Oriented Psychiatric: Affect appropriate, Mood appropriate Procedures - Laceration/Wound Repair Hand laceraton Wound Description: Linear Wound Length (cm): 3 cm Wound Width: .5 cm Wound Depth: .25 cm Wound Explored: Clean Wound Prep: Saline, Hibiclens, Betadine Anesthesia: Lidocaine Wound Debrided: Minimal Wound Repaired With: Sutures Suture Size and Type: 3-0 Nylon Number of Sutures: 6 Layer Closure?: No Sterile Dressing Applied?: Yes Re-Evaluation - Re-Evaluation Time of Re-Evaluation: 16:05 Status: Improved Vital Signs Stable: Yes Pain Level: minimal Appearance: NAD Lungs: Clear Skin: Warm and Dry Critical Care Note - Critical Care Note Total Time (mins): 0 Course - Course Orders, Labs, Meds: Orders Category Date Time Status Ceftriaxone Sodium [Rocephin] MEDS 04/30/18 15:04 Discontinued 1 gm .ROUTE .STK-MED ONE Ceftriaxone Sodium [Rocephin] MEDS 04/30/18 15:07 Discontinued 1 gm IM ONCE STA Diphth,Pertuss(Acell),Tet Vac [Boostrix] MEDS 04/30/18 14:58 Discontinued 0.5 ml IM .ONCE ONE Lidocaine HCl/Pf [Lidocaine HCl 1% Sdv] MEDS 04/30/18 15:07 Discontinued 2.1 ml IM ONCE STA Lidocaine HCl/Pf [Lidocaine HCl 1% Sdv] MEDS 04/30/18 14:58 Discontinued 5 ml SUBCUT ONCE STA Medications Discontinued Medications Generic Name Dose Route Start Last Admin Trade Name Freq PRN Reason Stop Dose Admin Ceftriaxone Sodium 1 gm 04/30/18 15:07 04/30/18 15:40 Rocephin IM 04/30/18 15:08 Not Given ONCE STA Diphtheria/Pertussis/Tetanus Vacc 0.5 ml 04/30/18 14:58 04/30/18 15:38 Boostrix IM 04/30/18 14:59 0.5 ml .ONCE ONE Administration Lidocaine HCl 5 ml 04/30/18 14:58 04/30/18 15:00 Lidocaine Hcl 1% Sdv SUBCUT 04/30/18 14:59 5 ml ONCE STA Administration Lidocaine HCl 2.1 ml 04/30/18 15:07 04/30/18 15:36 Lidocaine Hcl 1% Sdv IM 04/30/18 15:08 2.1 ml ONCE STA Administration Vital Signs: Temp Pulse Resp BP Pulse Ox 04/30/18 13:46 97.8 F 89 20 113/75 97 Departure - Departure Time of Disposition: 16:05 Disposition: HOME SELF-CARE Discharge Problem: Laceration of left hand Instructions: Laceration (ED) Condition: Good Pt referred to PMD for follow-up: Yes (1 week) IPMP verified?: No Additional Instructions: Use Wound care instructions Take existing analgesics for pain Take antibiotics as directed Allergies/Adverse Reactions: Allergies doxycycline Adverse Reaction (Verified 04/30/18 13:52) sumatriptan [From Imitrex] Adverse Reaction (Verified 04/30/18 13:51) topiramate [From Topamax] Adverse Reaction (Verified 04/30/18 13:51) trazodone Adverse Reaction (Verified 04/30/18 13:51) Home Medications: Ambulatory Orders Enalapril Maleate 10 mg PO DAILY 04/28/13 Furosemide [Lasix Tab] 40 mg PO QID 04/28/13 Pantoprazole Sodium [Protonix] 40 mg PO QDAC 04/28/13 Promethazine HCl [Phenergan Tab] 25 mg PO PRN PRN 04/28/13 Calcium Carbonate/Vitamin D3 [Calcium 600 + Vit D Caplet] 1 tab PO BID 07/24/14 Carbidopa/Levodopa [Carbidopa-Levodopa 25-100 Tab] 1 tab-cap PO BEDTIME Hydrocodone/Acetaminophen [[place] 10-325 Tablet] 1 each PO Q6HR PRN #7 tablet 07/ 28/15 Cyanocobalamin (Vitamin B-12) [Vitamin B-12] 1,000 mcg IJ ONCE #1 vial 06/15/16 Methylprednisolone [Medrol Dosepak] 4 mg PO DIRECTED #1 pkg 04/22/18 Cephalexin [Keflex] 500 mg PO BID #14 capsule 04/30/18
[2018-04-30] MEDS ORDERED: ROCEPHIN ONE (15:04)
[2018-04-30] MEDS ORDERED: LIDOCAINE HCL 1% SDV IM STA (15:07)
[2018-04-30] MEDS ORDERED: ROCEPHIN IM STA (15:07)
== END 2018-04-30 16:44 | disposition home or self-care (01) ==
LOC: ED 13:45
DX: S61.412A Laceration without foreign body of left hand, initial encounter (principal); W26.0XXA Contact with knife, initial encounter
CPT/HCPCS: 90471; 90715; 96372; 99283

== ENCOUNTER 2018-05-06 18:46 | Emergency (ER) | payer OTHER ==
[2018-05-06 19:01] VITALS: TEMP 98.1; BMI 39.8
[2018-05-06] MEDS ORDERED: TORADOL IM STA (19:25)
[2018-05-06] MEDS ORDERED: PHENERGAN 25 MG/ML VIAL IM STA (19:25)
--- NOTE | 2018-05-06 19:48 | ED.PDOC ---
General ED Provider: Dr. KAREEN GILMORE Chief Complaint: Headache Stated Complaint: States that her headaches started yesterday. Feels like her typical headaches. Also states that she has had some nausea and vomtiting. Used her Maxalt but vomited it together with phenergen. she follow up with Neurologist every 3 months. Time Seen by Physician: 19:20 Mode of Arrival: Walk-In Information Source: Patient Exam Limitations: No limitations Primary Care Provider: RADHA HALEY Nursing and Triage Documentation Reviewed and Agree: Yes Reviewed sepsis parameters & appropriate labs ordered?: No System Inflammatory Response Syndrome: Pulse >90 BPM, Not Applicable Sepsis Protocol: For patient's 13 years and over: Temp is 96.8 and below OR 101 and greater Pulse >90 BPM Resp >20/minute Acutely Altered Mental Status Are patient's symptoms suggestive of a new infection, such as: -Pneumonia -Skin, Soft Tissue -Endocarditis -UTI -Bone, Joint Infection -Implantable Device -Acute Abdominal Infection -Wound Infection -Meningitis -Blood Stream Catheter Infection -Unknown Neurological Complaint Exam - Headache Complaint/Exam Onset: Sudden Duration: constant Symptoms Are: Still present Timing: Constant Worst Headache Ever: No Initial Severity: Severe Current Severity: Severe Associated Signs and Symptoms: Reports: Nausea, Vomiting, Neck pain Related History: Reports: Similar episode SAH Risk Factors: Reports: None Meningitis Risk Factors: Reports: None SDH Risk Factors: Reports: None Normal Head CT Within Last 12 Months: Yes Fundoscopic Exam: Present: Normal Findings Papilledema Present: No Temporal Artery Tenderness: Present: None Sinus Tenderness: Present: None TMJ Tenderness: Present: None ROM Limited In: No Limitiations Focal Weakness: Present: None Focal Sensory Loss: Present: None Gait: Normal Nystagmus Present: No Gag Reflex Present: Yes [id number]: Normal Findings Romberg Test Positive: No Babinski Sign: Negative Right, Negative Left Differential Diagnoses: Migraine, Tension Headache Review of Systems - Review Of Systems Constitutional: Reports: No symptoms Eyes: Reports: No symptoms Ears, Nose, Mouth, Throat: Reports: No symptoms Respiratory: Reports: No symptoms Cardiac: Reports: No symptoms GI: Reports: Nausea, Vomiting : Reports: No symptoms Musculoskeletal: Reports: No symptoms Skin: Reports: Other (left hand healing wound. ) Neurological: Reports: Anxiety, Headache Endocrine: Reports: No symptoms Hematologic/Lymphatic: Reports: No symptoms All Other Systems: Reviewed and Negative Past Medical History - Past Medical History Previously Healthy: Yes Endocrine: Reports: Dyslipidemia Cardiovascular: Reports: Hypertension Respiratory: Reports: None Hematological: Reports: None Gastrointestinal: Reports: Other (IBS) Genitourinary: Reports: None Neuro/Psych: Reports: Migraine, Anxiety, Depression Musculoskeletal: Reports: None Cancer: Reports: None Last Menstrual Period: HYSTERECTOMY Other Pertinent Past Medical History: IBS - Surgical History General Surgical History: Reports: Hysterectomy, Back Surgery, Other (NASAL SURG FOR SINUSES 05/13) - Family History Family History: Reports: Unknown - Social History Smoking Status: Former smoker Hx Substance Use: No Alcohol Screening: None - Immunizations Tetanus Shot up to Date: Yes Influenza Vaccine within 12 Months: No Pneumococcal Vaccine up to Date: No Physical Exam - Physical Exam Appearance: Ill-appearing, Obese Ill-appearing: Moderate Pain Distress: Severe Eyes: KORIN, EOMI, Conjunctiva clear Neck: Supple Respiratory: Airway patent, Breath sounds clear, Breath sounds equal, Respirations nonlabored Cardiovascular: RRR, Pulses normal, No rub, No murmur GI/: Soft, Nontender, No masses, Bowel sounds normal, No Organomegaly Musculoskeletal: Normal strength Skin: Warm, Dry (healing left hand wound but not ready to have sutures removed. ) Neurological: Motor intact, Cranial nerves intact, Alert, Oriented Psychiatric: Anxious Critical Care Note - Critical Care Note Total Time (mins): 0 Course - Course Orders, Labs, Meds: Orders Category Date Time Status Diphenhydramine Inj [Benadryl] MEDS 05/06/18 20:02 Stat 25 mg IM ONCE STA Ketorolac Tromethamine [Toradol] MEDS 05/06/18 19:25 Discontinued 60 mg IM ONCE STA Promethazine HCl [Phenergan 25 mg/ml Vial] MEDS 05/06/18 19:25 Discontinued 25 mg IM ONCE STA Medications Discontinued Medications Generic Name Dose Route Start Last Admin Trade Name Freq PRN Reason Stop Dose Admin Diphenhydramine HCl 25 mg 05/06/18 20:02 05/06/18 20:06 Benadryl IM 05/06/18 20:03 25 mg ONCE STA Administration Ketorolac Tromethamine 60 mg 05/06/18 19:25 05/06/18 19:38 Toradol IM 05/06/18 19:26 60 mg ONCE STA Administration Promethazine HCl 25 mg 05/06/18 19:25 05/06/18 19:38 Phenergan 25 Mg/Ml Vial IM 05/06/18 19:26 25 mg ONCE STA Administration Vital Signs: Temp Pulse Resp BP Pulse Ox 05/06/18 20:03 141/80 H 05/06/18 18:47 98.1 F 105 H 18 137/99 H 99 Departure - Departure Time of Disposition: 19:54 Disposition: HOME SELF-CARE Discharge Problem: Headache, Wound healing well on examination Instructions: Migraine Headache (ED) Condition: Stable Pt referred to PMD for follow-up: Yes IPMP verified?: No Additional Instructions: Take zofran ODT under your tongue as needed for vomiting episodes. Follow up with PCP in 3 days rest continue home medications. Prescriptions: Ondansetron [Zofran Odt] 4 mg PO Q8H PRN #10 tab.rapdis PRN Reason: Nausea / Vomiting Allergies/Adverse Reactions: Allergies doxycycline Adverse Reaction (Verified 05/06/18 18:50) sumatriptan [From Imitrex] Adverse Reaction (Verified 05/06/18 18:50) topiramate [From Topamax] Adverse Reaction (Verified 05/06/18 18:50) trazodone Adverse Reaction (Verified 05/06/18 18:50) Home Medications: Ambulatory Orders Enalapril Maleate 10 mg PO DAILY 04/28/13 Furosemide [Lasix Tab] 40 mg PO QID 04/28/13 Pantoprazole Sodium [Protonix] 40 mg PO QDAC 04/28/13 Promethazine HCl [Phenergan Tab] 25 mg PO PRN PRN 04/28/13 Calcium Carbonate/Vitamin D3 [Calcium 600 + Vit D Caplet] 1 tab PO BID 07/24/14 Carbidopa/Levodopa [Carbidopa-Levodopa 25-100 Tab] 1 tab-cap PO BEDTIME Hydrocodone/Acetaminophen [[place] 10-325 Tablet] 1 each PO Q6HR PRN #7 tablet Cyanocobalamin (Vitamin B-12) [Vitamin B-12] 1,000 mcg IJ ONCE #1 vial 06/15/16 Methylprednisolone [Medrol Dosepak] 4 mg PO DIRECTED #1 pkg 04/22/18 Cephalexin [Keflex] 500 mg PO BID #14 capsule 04/30/18 Ondansetron [Zofran Odt] 4 mg PO Q8H PRN #10 tab.rapdis 05/06/18 Rizatriptan Benzoate [Maxalt] 10 mg PO PRN PRN 05/06/18
[2018-05-06] MEDS ORDERED: BENADRYL IM STA (20:02)
[2018-05-06 20:03] VITALS: BP 141/80
== END 2018-05-06 20:28 | disposition home or self-care (01) ==
LOC: ED 18:46
DX: G43.909 Migraine, unspecified, not intractable, without status migrainosus (principal); S61.412D Laceration without foreign body of left hand, subsequent encounter; Z98.890 Other specified postprocedural states
CPT/HCPCS: 96372; 99282

== ENCOUNTER 2018-05-21 14:22 | Emergency (ER) ==
[2018-05-21 14:27] VITALS: BP 137/96; TEMP 97.8; BMI 40.8
[2018-05-21] MEDS ORDERED: BENADRYL IM STA (15:18)
[2018-05-21] MEDS ORDERED: TORADOL IM STA (15:18)
--- NOTE | 2018-05-21 15:21 | ED.PDOC ---
General ED Provider: Dr. JERSEY SANTOS Chief Complaint: Headache Stated Complaint: Patient has h/o migraine, . says she is been hurting for 2 days, nothing is helping. goes to Dr Jones Time Seen by Physician: 15:19 Mode of Arrival: Walk-In Information Source: Patient Primary Care Provider: RADHA HALEY Nursing and Triage Documentation Reviewed and Agree: Yes Does patient meet sepsis criteria?: No If yes, has appropriate treatment been initiated?: No System Inflammatory Response Syndrome: Not Applicable Sepsis Protocol: For patient's 13 years and over: Temp is 96.8 and below OR 101 and greater Pulse >90 BPM Resp >20/minute Acutely Altered Mental Status Are patient's symptoms suggestive of a new infection, such as: -Pneumonia -Skin, Soft Tissue -Endocarditis -UTI -Bone, Joint Infection -Implantable Device -Acute Abdominal Infection -Wound Infection -Meningitis -Blood Stream Catheter Infection -Unknown Neurological Complaint Exam - Headache Complaint/Exam Onset: Gradual Symptoms Are: Still present Timing: Constant Worst Headache Ever: No Initial Severity: Moderate Current Severity: Moderate Location: Left, Frontal Character: Reports: Throbbing, Typical headache, Migraine Aggravating: Reports: Bright lights Alleviating: Reports: None Associated Signs and Symptoms: Denies: Dizziness, Seizure, Nausea, Vomiting, Sinus pressure, Fever, Neck pain, Neck stiffness, Decreased LOC, Visual changes Related History: Reports: Similar episode Related Surgical History: Reports: None SAH Risk Factors: Reports: None Meningitis Risk Factors: Reports: None SDH Risk Factors: Reports: None Temporal Arteritis Risk Factors: Reports: None Normal Head CT Within Last 12 Months: No Temporal Artery Tenderness: Present: None Sinus Tenderness: Present: None Meningeal Signs Positive: No Pain on Passive Flexion-Positive Kernig's: No ROM Limited In: No Limitiations Focal Weakness: Present: None Focal Sensory Loss: Present: None Gait: Normal Nystagmus Present: No Gag Reflex Present: Yes [id number]: Normal Findings Differential Diagnoses: Migraine Review of Systems - Review Of Systems Constitutional: Reports: No symptoms Eyes: Reports: No symptoms Ears, Nose, Mouth, Throat: Reports: No symptoms Respiratory: Reports: No symptoms Cardiac: Reports: No symptoms GI: Reports: No symptoms : Reports: No symptoms Musculoskeletal: Reports: No symptoms Skin: Reports: No symptoms Neurological: Reports: Headache Endocrine: Reports: No symptoms Hematologic/Lymphatic: Reports: No symptoms All Other Systems: Reviewed and Negative Past Medical History - Past Medical History Previously Healthy: Yes Endocrine: Reports: Dyslipidemia Cardiovascular: Reports: Hypertension Respiratory: Reports: None Hematological: Reports: None Gastrointestinal: Reports: Other (IBS) Genitourinary: Reports: None Neuro/Psych: Reports: Migraine, Anxiety, Depression Musculoskeletal: Reports: None Cancer: Reports: None Last Menstrual Period: n/a Other Pertinent Past Medical History: IBS - Surgical History General Surgical History: Reports: Hysterectomy, Back Surgery, Other (NASAL SURG FOR SINUSES 05/13) - Family History Family History: Reports: Unknown - Social History Smoking Status: Former smoker Hx Substance Use: No Alcohol Screening: None - Immunizations Influenza Vaccine within 12 Months: No Pneumococcal Vaccine up to Date: No Physical Exam - Physical Exam Appearance: Ill-appearing, Obese Eyes: KORIN, EOMI, Conjunctiva clear ENT: Ears normal, Nose normal, Oropharynx normal Respiratory: Airway patent, Breath sounds clear, Breath sounds equal, Respirations nonlabored Cardiovascular: RRR, Pulses normal, No rub, No murmur GI/: Soft, Nontender, No masses, Bowel sounds normal, No Organomegaly Musculoskeletal: Normal strength, ROM intact, No edema, No calf tenderness Skin: Warm, Dry, Normal color Neurological: Sensation intact, Motor intact, Reflexes intact, Cranial nerves intact, Alert, Oriented Psychiatric: Affect appropriate, Mood appropriate Critical Care Note - Critical Care Note Total Time (mins): 30 Course - Course Orders, Labs, Meds: Orders Category Date Time Status Diphenhydramine Inj [Benadryl] MEDS 05/21/18 15:18 Stat 25 mg IM ONCE STA Ketorolac Tromethamine [Toradol] MEDS 05/21/18 15:18 Stat 60 mg IM ONCE STA Medications Discontinued Medications Generic Name Dose Route Start Last Admin Trade Name Freq PRN Reason Stop Dose Admin Diphenhydramine HCl 25 mg 05/21/18 15:18 Benadryl IM 05/21/18 15:19 ONCE STA Ketorolac Tromethamine 60 mg 05/21/18 15:18 Toradol IM 05/21/18 15:19 ONCE STA Vital Signs: Temp Pulse Resp BP Pulse Ox 05/21/18 14:22 97.8 F 72 16 137/96 H 97 Departure - Departure Time of Disposition: 15:22 Disposition: HOME SELF-CARE Discharge Problem: Headache Instructions: Migraine Headache (ED) Condition: Stable Pt referred to PMD for follow-up: Yes IPMP verified?: No Additional Instructions: continue taking the medication Increase Hydration f/u with PMD in 3-4 days Allergies/Adverse Reactions: Allergies doxycycline Adverse Reaction (Verified 05/21/18 14:25) ketorolac [From Toradol] Adverse Reaction (Verified 05/21/18 14:25) Itching sumatriptan [From Imitrex] Adverse Reaction (Verified 05/21/18 14:25) topiramate [From Topamax] Adverse Reaction (Verified 05/21/18 14:25) trazodone Adverse Reaction (Verified 05/21/18 14:25) Home Medications: Ambulatory Orders Enalapril Maleate 10 mg PO DAILY 04/28/13 Furosemide [Lasix Tab] 40 mg PO QID 04/28/13 Promethazine HCl [Phenergan Tab] 25 mg PO PRN PRN 04/28/13 Calcium Carbonate/Vitamin D3 [Calcium 600 + Vit D Caplet] 1 tab PO BID 07/24/14 Carbidopa/Levodopa [Carbidopa-Levodopa 25-100 Tab] 1 tab-cap PO BEDTIME Hydrocodone/Acetaminophen [[place] 10-325 Tablet] 1 each PO Q6HR PRN #7 tablet Cyanocobalamin (Vitamin B-12) [Vitamin B-12] 1,000 mcg IJ ONCE #1 vial 06/15/16 Carbamazepine 2 tab PO BID PRN 05/21/18 Topiramate [Trokendi Xr] 100 mg PO DAILY PRN 05/21/18 Disposition Discussed With: Patient, Family
== END 2018-05-21 15:58 | disposition home or self-care (01) ==
LOC: ED 14:22
DX: G43.909 Migraine, unspecified, not intractable, without status migrainosus (principal)
CPT/HCPCS: 96372; 99283

== ENCOUNTER 2018-07-02 18:04 | Emergency (ER) | payer OTHER ==
[2018-07-02 18:19] VITALS: BP 107/76; TEMP 99.4; BMI 40.5
--- NOTE | 2018-07-02 18:39 | ED.PDOC ---
General ED Provider: Dr. TEJA ACE Chief Complaint: Urinary Problem Stated Complaint: Burning with urination and difficulty with voiding and complete emptying for 1 week Has had low grade fever for past several days. States has difficulty with voiding during the day and will awaken in the morning experiencing lower abdomian pain and can initiate voiding then. Has sensation of having to void but can not initate urination . Started to experience lower abdominal and lower back pain today Time Seen by Physician: 18:30 Mode of Arrival: Walk-In Information Source: Patient Exam Limitations: No limitations Primary Care Provider: RADHA HALEY Nursing and Triage Documentation Reviewed and Agree: Yes Does patient meet sepsis criteria?: No System Inflammatory Response Syndrome: Not Applicable Sepsis Protocol: For patient's 13 years and over: Temp is 96.8 and below OR 101 and greater Pulse >90 BPM Resp >20/minute Acutely Altered Mental Status Are patient's symptoms suggestive of a new infection, such as: -Pneumonia -Skin, Soft Tissue -Endocarditis -UTI -Bone, Joint Infection -Implantable Device -Acute Abdominal Infection -Wound Infection -Meningitis -Blood Stream Catheter Infection -Unknown Complaint Exam - UTI Female Complaint/Exam Patient Complains of: Reports: Painful urination Onset/Duration: 1 week Symptoms Are: Worse Timing: Constant Initial Severity: Moderate Current Severity: Severe Location of Pain: Reports: Suprapubic Associated Signs and Symptoms: Reports: Flank pain Related Surgical History: Reports: None CVA Tenderness: No Suprapubic Tenderness: Yes Differential Diagnoses: Bladder Dysfunction, Cystitis Review of Systems - Review Of Systems Constitutional: Reports: No symptoms Eyes: Reports: No symptoms Ears, Nose, Mouth, Throat: Reports: No symptoms, Mouth pain Respiratory: Reports: No symptoms Cardiac: Reports: No symptoms GI: Reports: No symptoms : Reports: No symptoms Musculoskeletal: Reports: No symptoms Skin: Reports: No symptoms Neurological: Reports: No symptoms Endocrine: Reports: No symptoms Hematologic/Lymphatic: Reports: No symptoms All Other Systems: Reviewed and Negative Past Medical History - Past Medical History Previously Healthy: Yes Endocrine: Reports: Dyslipidemia Cardiovascular: Reports: Hypertension Respiratory: Reports: None Hematological: Reports: None Gastrointestinal: Reports: Other (IBS) Genitourinary: Reports: None Neuro/Psych: Reports: Migraine, Anxiety, Depression Musculoskeletal: Reports: None Cancer: Reports: None Last Menstrual Period: PT HAS HAD A HYSTERECTOMY Other Pertinent Past Medical History: IBS - Surgical History General Surgical History: Reports: Hysterectomy, Back Surgery, Other (NASAL SURG FOR SINUSES 05/13) - Family History Family History: Reports: Unknown - Social History Smoking Status: Former smoker Hx Substance Use: No Alcohol Screening: None - Immunizations Tetanus Shot up to Date: Yes Influenza Vaccine within 12 Months: No Pneumococcal Vaccine up to Date: No Physical Exam - Physical Exam Appearance: Ill-appearing, Obese Ill-appearing: Mild Pain Distress: Mild Eyes: KORIN, EOMI, Conjunctiva clear ENT: Ears normal, Nose normal, Oropharynx normal Respiratory: Airway patent, Breath sounds clear, Breath sounds equal, Respirations nonlabored Cardiovascular: RRR, Pulses normal, No rub, No murmur GI/: Soft, No masses, Bowel sounds normal, No Organomegaly, Tender Musculoskeletal: Normal strength, ROM intact, No edema, No calf tenderness Skin: Warm, Dry, Normal color Neurological: Sensation intact, Motor intact, Reflexes intact, Cranial nerves intact, Alert, Oriented Psychiatric: Affect appropriate, Mood appropriate Critical Care Note - Critical Care Note Total Time (mins): 0 Course - Course Hematology/Chemistry: 07/02/18 18:50 07/02/18 18:50 Orders, Labs, Meds: Lab Review 07/02/18 07/02/18 07/02/18 18:45 18:50 18:50 WBC 7.29 RBC 3.72 L Hgb 11.3 L Hct 33.2 L MCV 89.2 MCH 30.4 MCHC 34.0 RDW Coeff of [place] 12.7 Plt Count 260 Immature Gran % (Auto) 0.1 Neut % (Auto) 57.7 Lymph % (Auto) 33.1 [place] % (Auto) 5.2 Eos % (Auto) 3.4 Baso % (Auto) 0.5 Immature Gran # (Auto) 0.0 Neut # (Auto) 4.2 Lymph # (Auto) 2.4 [place] # (Auto) 0.4 Eos # (Auto) 0.3 Baso # (Auto) 0.0 Sodium 137 Potassium 3.6 Chloride 104 Carbon Dioxide 22 Anion Gap 14.6 BUN 11 Creatinine 0.83 Estimated GFR (MDRD) 74.00 BUN/Creatinine Ratio 13.25 Glucose 151 H Calcium 9.4 Total Bilirubin 0.3 AST 26 ALT 26 Alkaline Phosphatase 90 Total Protein 7.5 Albumin 3.3 L Globulin 4.2 Albumin/Globulin Ratio 0.79 Urine Color Yellow Urine Clarity Cloudy Urine pH 5.0 Ur Specific [place] 1.025 Urine Protein 2+ Urine Glucose (UA) Negative Urine Ketones Trace Urine Blood 1+ Urine Nitrite Positive Urine Bilirubin 1+ Urine Urobilinogen 0.2 Ur Leukocyte Esterase 1+ Urine Microscopic RBC 2-5 Urine Microscopic WBC 20-30 Ur Squamous Epith Cells 5-10 Urine Bacteria 4+ Orders Category Date Time Status Bladder [ED BLADDER SCAN] .ONCE EMERGENCY 07/02/18 18:37 Active BLOOD CULTURE (ED ONLY) Stat LAB 07/02/18 18:50 Received CBC W/ AUTO DIFF Stat LAB 07/02/18 18:50 Completed CMP [COMPREHENSIVE METABOLIC PANEL] Stat LAB 07/02/18 18:50 Completed UA [URINALYSIS C & S IF INDICATED] Stat LAB 07/02/18 18:45 Completed URINE CULTURE Stat LAB 07/02/18 18:45 Received Hydrocodone Bit/Acetaminophen [[place] 7.5-325] MEDS 07/02/18 19:49 Discontinued 1 tab PO ONCE STA Levofloxacin [Levaquin] MEDS 07/02/18 19:49 Discontinued 500 mg PO ONCE STA Phenazopyridine HCl [Pyridium] MEDS 07/02/18 19:48 Discontinued 100 mg PO ONCE STA Medications Discontinued Medications Generic Name Dose Route Start Last Admin Trade Name Freq PRN Reason Stop Dose Admin Hydrocodone Bitart/Acetaminophen 1 tab 07/02/18 19:49 [place] 7.5-325 PO 07/02/18 19:50 ONCE STA Levofloxacin 500 mg 07/02/18 19:49 Levaquin PO 07/02/18 19:50 ONCE STA Phenazopyridine HCl 100 mg 07/02/18 19:48 Pyridium PO 07/02/18 19:49 ONCE STA Vital Signs: Temp Pulse Resp BP Pulse Ox 07/02/18 18:04 99.4 F 107 H 20 107/76 98 Departure - Departure Time of Disposition: 19:50 Disposition: HOME SELF-CARE Discharge Problem: UTI (urinary tract infection) Instructions: Urinary Tract Infection in Women (ED), Phenazopyridine (By mouth) Condition: Good Pt referred to PMD for follow-up: Yes (1 week) IPMP verified?: No Allergies/Adverse Reactions: Allergies doxycycline Adverse Reaction (Verified 07/02/18 18:20) ketorolac [From Toradol] Adverse Reaction (Verified 07/02/18 18:20) Itching sumatriptan [From Imitrex] Adverse Reaction (Verified 07/02/18 18:20) topiramate [From Topamax] Adverse Reaction (Verified 07/02/18 18:21) HANDS DRAW UP trazodone Adverse Reaction (Verified 07/02/18 18:20) Home Medications: Ambulatory Orders Enalapril Maleate 10 mg PO DAILY 04/28/13 Furosemide [Lasix Tab] 40 mg PO QID 04/28/13 Promethazine HCl [Phenergan Tab] 25 mg PO PRN PRN 04/28/13 Calcium Carbonate/Vitamin D3 [Calcium 600 + Vit D Caplet] 1 tab PO BID 07/24/14 Carbidopa/Levodopa [Carbidopa-Levodopa 25-100 Tab] 1 tab-cap PO BEDTIME Hydrocodone/Acetaminophen [[place] 10-325 Tablet] 1 each PO Q6HR PRN #7 tablet Cyanocobalamin (Vitamin B-12) [Vitamin B-12] 1,000 mcg IJ ONCE #1 vial 06/15/16 Carbamazepine 2 tab PO BID PRN 05/21/18 Topiramate [Trokendi Xr] 100 mg PO DAILY PRN 05/21/18 Hydrocodone/Acetaminophen [[place] 5-325 Tablet] 1 tab PO Q6HR PRN #10 mg Levofloxacin [Levaquin] 500 mg PO QDAC #6 tablet 07/02/18 Phenazopyridine HCl [Pyridium] 100 mg PO TID #15 tablet 07/02/18 Disposition Discussed With: Patient
[2018-07-02] MEDS ORDERED: PYRIDIUM PO STA (19:48)
[2018-07-02] MEDS ORDERED: NORCO 7.5-325 PO STA (19:49)
[2018-07-02] MEDS ORDERED: LEVAQUIN PO STA (19:49)
== END 2018-07-02 20:25 | disposition home or self-care (01) ==
LOC: ED 18:04
DX: N39.0 Urinary tract infection, site not specified (principal)
CPT/HCPCS: 36415; 80053; 81001; 85025; 87040; 87086; 87186; 99283

== ENCOUNTER 2018-07-04 11:53 | Emergency (ER) ==
[2018-07-04 12:05] VITALS: BP 112/81; TEMP 98.2; BMI 41.5
--- NOTE | 2018-07-04 12:48 | ED.PDOC ---
General ED Provider: Dr. TEJA ACE Chief Complaint: Urinary Problem Stated Complaint: Burning with Urination; Severe Bladder Pain. Treated in ER 2 days ago and given Rx Levaquin for UTI. Still hurting in suprapubic region Time Seen by Physician: 12:15 Mode of Arrival: Walk-In Information Source: Patient Primary Care Provider: RADHA HALEY Referred to ED by: PCP Nursing and Triage Documentation Reviewed and Agree: Yes Does patient meet sepsis criteria?: No System Inflammatory Response Syndrome: Pulse >90 BPM, Not Applicable Sepsis Protocol: For patient's 13 years and over: Temp is 96.8 and below OR 101 and greater Pulse >90 BPM Resp >20/minute Acutely Altered Mental Status Are patient's symptoms suggestive of a new infection, such as: -Pneumonia -Skin, Soft Tissue -Endocarditis -UTI -Bone, Joint Infection -Implantable Device -Acute Abdominal Infection -Wound Infection -Meningitis -Blood Stream Catheter Infection -Unknown Complaint Exam - UTI Female Complaint/Exam Patient Complains of: Reports: Painful urination Onset/Duration: 5 days Symptoms Are: Still present Timing: Constant (with intermittent worsening) Initial Severity: Moderate Current Severity: Moderate Location of Pain: Reports: Groin, Suprapubic Associated Signs and Symptoms: Denies: Fever, Chills, Flank pain, Dyspareunia, Vaginal discharge CVA Tenderness: No Suprapubic Tenderness: Yes Differential Diagnoses: Bladder Dysfunction, Cystitis Review of Systems - Review Of Systems Constitutional: Reports: No symptoms Eyes: Reports: No symptoms Ears, Nose, Mouth, Throat: Reports: No symptoms Respiratory: Reports: No symptoms Cardiac: Reports: No symptoms GI: Reports: No symptoms : Reports: Burning, Dysuria, Urgency Musculoskeletal: Reports: No symptoms Skin: Reports: No symptoms Neurological: Reports: No symptoms Endocrine: Reports: No symptoms Hematologic/Lymphatic: Reports: No symptoms All Other Systems: Reviewed and Negative Past Medical History - Past Medical History Previously Healthy: Yes Endocrine: Reports: Dyslipidemia Cardiovascular: Reports: Hypertension Respiratory: Reports: None Hematological: Reports: None Gastrointestinal: Reports: Other (IBS) Genitourinary: Reports: None Neuro/Psych: Reports: Migraine, Anxiety, Depression Musculoskeletal: Reports: None Cancer: Reports: None Last Menstrual Period: 2007 Other Pertinent Past Medical History: IBS - Surgical History General Surgical History: Reports: Hysterectomy, Back Surgery, Other (NASAL SURG FOR SINUSES 05/13) - Family History Family History: Reports: Unknown - Social History Smoking Status: Former smoker Hx Substance Use: No Alcohol Screening: None - Immunizations Tetanus Shot up to Date: Yes Influenza Vaccine within 12 Months: No Pneumococcal Vaccine up to Date: No Physical Exam - Physical Exam Appearance: Well-appearing, Well-nourished, Obese Ill-appearing: Mild Pain Distress: Moderate Eyes: KORIN, EOMI, Conjunctiva clear ENT: Ears normal, Nose normal, Oropharynx normal Respiratory: Airway patent, Breath sounds clear, Breath sounds equal, Respirations nonlabored Cardiovascular: RRR, Pulses normal, No rub, No murmur GI/: Soft, No masses, Bowel sounds normal, No Organomegaly, Tender Musculoskeletal: Normal strength, ROM intact, No edema, No calf tenderness Skin: Warm, Dry, Normal color Neurological: Sensation intact, Motor intact, Reflexes intact, Cranial nerves intact, Alert, Oriented Psychiatric: Affect appropriate, Mood appropriate Re-Evaluation - Re-Evaluation Time of Re-Evaluation: 16:15 Status: Improved Vital Signs Stable: Yes Appearance: NAD Lungs: Clear Skin: Warm and Dry Neuro: Alert and Oriented X3 CV: Other Critical Care Note - Critical Care Note Total Time (mins): 30 Course - Course Orders, Labs, Meds: Lab Review 07/04/18 12:50 Urine Color Yellow Urine Clarity Clear Urine pH 5.5 Ur Specific [place] <=1.005 Urine Protein 1+ Urine Glucose (UA) Trace Urine Ketones Negative Urine Blood Trace-intact Urine Nitrite Positive Urine Bilirubin Negative Urine Urobilinogen 1.0 Ur Leukocyte Esterase 2+ Urine Microscopic WBC 5-10 Ur Squamous Epith Cells 10-20 Urine Bacteria Trace Orders Category Date Time Status CULTURE WOUND [WOUND CULTURE] Stat LAB 07/04/18 14:16 Received UA [URINALYSIS C & S IF INDICATED] Stat LAB 07/04/18 12:50 Completed URINE CULTURE Stat LAB 07/04/18 12:50 Received Hydromorphone HCl [Dilaudid 0.5 mg/0.5 ml Syringe] MEDS 07/04/18 14:43 Discontinued 0.5 mg IM ONCE STA Hyoscyamine Sulfate [Levsin] MEDS 07/04/18 14:05 Discontinued 0.125 mg PO ONCE STA Medications Discontinued Medications Generic Name Dose Route Start Last Admin Trade Name Freq PRN Reason Stop Dose Admin Hydromorphone HCl 0.5 mg 07/04/18 14:43 07/04/18 14:51 Dilaudid 0.5 Mg/0.5 Ml Syringe IM 07/04/18 14:44 0.5 mg ONCE STA Administration Hyoscyamine 0.125 mg 07/04/18 14:05 07/04/18 14:25 Levsin PO 07/04/18 14:06 0.125 mg ONCE STA Administration Vital Signs: Temp Pulse Resp BP Pulse Ox 07/04/18 12:00 98.2 F 94 H 20 112/81 97 Departure - Departure Time of Disposition: 16:15 Disposition: HOME SELF-CARE Discharge Problem: Painful bladder spasm UTI (urinary tract infection) Qualifiers: Urinary tract infection type: acute cystitis Condition: Good Pt referred to PMD for follow-up: Yes (1 week) IPMP verified?: No Additional Instructions: Encourage good fluid intake and take all meds as directed Prescriptions: Hyoscyamine Sulfate [Levsin] 0.125 mg PO Q4HR PRN #20 tablet PRN Reason: Relief of bladder spasm Allergies/Adverse Reactions: Allergies doxycycline Adverse Reaction (Verified 07/04/18 11:57) Rash ketorolac [From Toradol] Adverse Reaction (Verified 07/02/18 18:20) Itching sumatriptan [From Imitrex] Adverse Reaction (Verified 07/04/18 11:57) Unknown topiramate [From Topamax] Adverse Reaction (Verified 07/02/18 18:21) HANDS DRAW UP trazodone Adverse Reaction (Verified 07/04/18 11:57) Unknown Home Medications: Ambulatory Orders Enalapril Maleate 10 mg PO DAILY 04/28/13 Furosemide [Lasix Tab] 40 mg PO QID 04/28/13 Promethazine HCl [Phenergan Tab] 25 mg PO PRN PRN 04/28/13 Calcium Carbonate/Vitamin D3 [Calcium 600 + Vit D Caplet] 1 tab PO BID 07/24/14 Carbidopa/Levodopa [Carbidopa-Levodopa 25-100 Tab] 1 tab-cap PO BEDTIME Hydrocodone/Acetaminophen [[place] 10-325 Tablet] 1 each PO Q6HR PRN #7 tablet Cyanocobalamin (Vitamin B-12) [Vitamin B-12] 1,000 mcg IJ ONCE #1 vial 06/15/16 Carbamazepine 2 tab PO BID PRN 05/21/18 Topiramate [Trokendi Xr] 100 mg PO DAILY PRN 05/21/18 Levofloxacin [Levaquin] 500 mg PO QDAC #6 tablet 07/02/18 Phenazopyridine HCl [Pyridium] 100 mg PO TID #15 tablet 07/02/18 Hyoscyamine Sulfate [Levsin] 0.125 mg PO Q4HR PRN #20 tablet 07/04/18 Disposition Discussed With: Patient
[2018-07-04] MEDS ORDERED: LEVSIN PO STA (14:05)
[2018-07-04] MEDS ORDERED: DILAUDID 0.5 MG/0.5 ML SYRINGE IM STA (14:43)
== END 2018-07-04 16:45 | disposition home or self-care (01) ==
LOC: ED 11:53
DX: N30.00 Acute cystitis without hematuria (principal); N32.89 Other specified disorders of bladder
CPT/HCPCS: 81001; 87070; 87086; 96372; 99283

== ENCOUNTER 2018-09-16 19:15 | Emergency (ER) ==
[2018-09-16 19:23] VITALS: BP 122/85; TEMP 96.8; BMI 40.5
[2018-09-16] MEDS ORDERED: PHENERGAN 25 MG/ML VIAL IM STA (19:25)
[2018-09-16] MEDS ORDERED: DILAUDID 1 MG/ML SYRINGE IM STA (19:25)
--- NOTE | 2018-09-16 19:57 | CT ---
EXAM: CT of the abdomen and pelvis without contrast. HISTORY: Abdominal pain. PROCEDURE: Contiguous axial CT images of the abdomen and pelvis without contrast with coronal and sa gittal reformats. FINDINGS: The liver is normal in appearance. The gallbladder is surgically absent. The pancreas, sp yossi, adrenal glands and kidneys are normal in appearance. The abdominal aorta is within normal limit s in diameter. The appendix is surgically absent. The visualized loops of bowel are normal in appear ance. No free fluid or free air in the abdomen or pelvis. The bladder is minimally filled with no abn ormality identified. The uterus is surgically absent. There are degenerative changes in the spine. Impression: Negative CT of the abdomen and pelvis. Cholecystectomy. Appendectomy. Hysterectomy.
--- NOTE | 2018-09-16 20:04 | ED.PDOC ---
General ED Provider: Dr. TEJA BALBUENA-ER Chief Complaint: Abdominal Pain Stated Complaint: loivia been hurting since this am Time Seen by Physician: 19:30 Mode of Arrival: Walk-In Information Source: Patient Exam Limitations: No limitations Primary Care Provider: RADHA ROGERS Nursing and Triage Documentation Reviewed and Agree: Yes Does patient meet sepsis criteria?: No System Inflammatory Response Syndrome: Not Applicable Sepsis Protocol: For patient's 13 years and over: Temp is 96.8 and below OR 101 and greater Pulse >90 BPM Resp >20/minute Acutely Altered Mental Status Are patient's symptoms suggestive of a new infection, such as: -Pneumonia -Skin, Soft Tissue -Endocarditis -UTI -Bone, Joint Infection -Implantable Device -Acute Abdominal Infection -Wound Infection -Meningitis -Blood Stream Catheter Infection -Unknown GI Complaint Exam - Abdominal Pain Complaint/Exam Onset: Gradual Duration: several hours Symptoms Are: Still present Timing: Constant Initial Severity: Mild Current Severity: Moderate Location of Pain: Diffuse Character: Reports: Dull, Aching Alleviating: Reports: None Patient Rh Status: Unknown Abdominal Findings: Present: None Differential Diagnoses: Other Quality Indicator For Non-Traumatic Chest Pain/Syncope: EKG Performed Review of Systems - Review Of Systems Constitutional: Reports: No symptoms Eyes: Reports: No symptoms Ears, Nose, Mouth, Throat: Reports: No symptoms Respiratory: Reports: No symptoms Cardiac: Reports: No symptoms GI: Reports: Abdominal pain : Reports: No symptoms Musculoskeletal: Reports: No symptoms Skin: Reports: No symptoms Neurological: Reports: No symptoms Endocrine: Reports: No symptoms Hematologic/Lymphatic: Reports: No symptoms All Other Systems: Reviewed and Negative Past Medical History - Past Medical History Previously Healthy: Yes Endocrine: Reports: Dyslipidemia Cardiovascular: Reports: Hypertension Respiratory: Reports: None Hematological: Reports: None Gastrointestinal: Reports: Other (IBS) Genitourinary: Reports: None Neuro/Psych: Reports: Migraine, Anxiety, Depression Musculoskeletal: Reports: None Cancer: Reports: None Last Menstrual Period: N/A Other Pertinent Past Medical History: IBS - Surgical History General Surgical History: Reports: Hysterectomy, Back Surgery, Other (NASAL SURG FOR SINUSES 05/13) - Family History Family History: Reports: Unknown - Social History Smoking Status: Former smoker Hx Substance Use: No Alcohol Screening: None - Immunizations Tetanus Shot up to Date: Yes Influenza Vaccine within 12 Months: No Pneumococcal Vaccine up to Date: No Physical Exam - Physical Exam Appearance: Well-appearing, No pain distress, Well-nourished Pain Distress: Moderate Eyes: KORIN, EOMI, Conjunctiva clear ENT: Ears normal, Nose normal, Oropharynx normal Neck: Supple Respiratory: Airway patent, Breath sounds clear, Breath sounds equal, Respirations nonlabored Cardiovascular: RRR GI/: Soft, Nontender, No masses, Bowel sounds normal, No Organomegaly Musculoskeletal: Normal strength, ROM intact, No edema, No calf tenderness Skin: Warm, Dry, Normal color Neurological: Sensation intact, Motor intact, Reflexes intact, Cranial nerves intact, Alert, Oriented Psychiatric: Affect appropriate, Mood appropriate Interpretation - Radiology Interpretation Radiology Interpretation By: Radiologist Radiology Results: Negative Exam Interpreted: CT Scan - EKG Interpretation Time of EKG #1: 20:04 Rate: Normal Rhythm: Sinus Ectopy: None [place]: NL ST Segment: Normal Interpretation: nsr Re-Evaluation - Re-Evaluation Time of Re-Evaluation: 20:14 Status: Improved Vital Signs Stable: Yes Pain Level: 0 Appearance: NAD Lungs: Clear Skin: Warm and Dry Neuro: Alert and Oriented X3 CV: RRR Critical Care Note - Critical Care Note Total Time (mins): 0 Course - Course Hematology/Chemistry: 09/16/18 19:25 09/16/18 19:25 Orders, Labs, Meds: Lab Review 09/16/18 09/16/18 09/16/18 19:25 19:25 19:50 WBC 6.64 RBC 3.59 L Hgb 10.9 L Hct 32.7 L MCV 91.1 MCH 30.4 MCHC 33.3 RDW Coeff of [place] 12.7 Plt Count 220 Immature Gran % (Auto) 0.2 Neut % (Auto) 52.2 Lymph % (Auto) 36.0 [place] % (Auto) 6.5 Eos % (Auto) 4.5 Baso % (Auto) 0.6 Immature Gran # (Auto) 0.0 Neut # (Auto) 3.5 Lymph # (Auto) 2.4 [place] # (Auto) 0.4 Eos # (Auto) 0.3 Baso # (Auto) 0.0 ESR 26 H Sodium 135.4 L Potassium 4.21 Chloride 102.2 Carbon Dioxide 27.4 Anion Gap 10.01 BUN 28.1 H Creatinine 1.12 Estimated GFR (MDRD) 52.00 BUN/Creatinine Ratio 25.08 Glucose 116.4 H Calcium 9.40 Total Bilirubin 0.32 AST 37.9 H ALT 21.6 Alkaline Phosphatase 67.7 Total Creatine Kinase 119.6 CK-MB (CK-2) 0.955 CK-MB (CK-2) % 0.7900 Troponin I < 0.012 Total Protein 7.24 Albumin 4.24 Globulin 3.00 Albumin/Globulin Ratio 1.41 Amylase 74.6 Lipase 155.8 Urine Color Yellow Urine Clarity Cloudy Urine pH 5.5 Ur Specific [place] 1.025 Urine Protein Negative Urine Glucose (UA) Negative Urine Ketones Negative Urine Blood Trace-lysed Urine Nitrite Negative Urine Bilirubin Negative Urine Urobilinogen 0.2 Ur Leukocyte Esterase 3+ Urine Microscopic RBC 0-2 Urine Microscopic WBC 20-30 Ur Squamous Epith Cells 0-2 Ur Renal Epithelial Cell 0-2 Urine Bacteria Trace Orders Category Date Time Status EKG-(ED ONLY) Stat CARDIO 09/16/18 19:18 Ordered AMYLASE Stat LAB 09/16/18 19:25 Completed CBC W/ AUTO DIFF Stat LAB 09/16/18 19:25 Completed COMPREHENSIVE METABOLIC PANEL Stat LAB 09/16/18 19:25 Completed CREATINE KINASE Stat LAB 09/16/18 19:25 Completed ESR Stat LAB 09/16/18 19:25 Completed LIPASE Stat LAB 09/16/18 19:25 Completed TROPONIN I Stat LAB 09/16/18 19:25 Completed URINALYSIS C & S IF INDICATED Stat LAB 09/16/18 19:50 Completed URINE CULTURE Stat LAB 09/16/18 20:07 Received Hydromorphone HCl [Dilaudid 1 mg/ml Syringe] MEDS 09/16/18 19:25 Discontinued 2 mg IM ONCE STA Promethazine HCl [Phenergan 25 mg/ml Vial] MEDS 09/16/18 19:25 Discontinued 25 mg IM ONCE STA CT ABDOMEN/PELVIS WO CONTRAST Stat RADS 09/16/18 19:25 Completed Medications Discontinued Medications Generic Name Dose Route Start Last Admin Trade Name Freq PRN Reason Stop Dose Admin Hydromorphone HCl 2 mg 09/16/18 19:25 09/16/18 19:49 Dilaudid 1 Mg/Ml Syringe IM 09/16/18 19:26 2 mg ONCE STA Administration Promethazine HCl 25 mg 09/16/18 19:25 09/16/18 19:48 Phenergan 25 Mg/Ml Vial IM 09/16/18 19:26 25 mg ONCE STA Administration Vital Signs: Temp Pulse Resp BP Pulse Ox 09/16/18 19:20 96.8 F L 86 18 122/85 90 L Departure - Departure Time of Disposition: 20:14 Disposition: HOME SELF-CARE Discharge Problem: Abdominal pain, Cystitis Instructions: Urinary Tract Infection in Women (ED) Condition: Good Pt referred to PMD for follow-up: Yes IPMP verified?: No Additional Instructions: bactrim ds bid x 7 days--hydation===f/u dr rogers to repeat ua Allergies/Adverse Reactions: Allergies doxycycline Adverse Reaction (Verified 07/04/18 11:57) Rash ketorolac [From Toradol] Adverse Reaction (Verified 07/02/18 18:20) Itching sumatriptan [From Imitrex] Adverse Reaction (Verified 07/04/18 11:57) Unknown topiramate [From Topamax] Adverse Reaction (Verified 07/02/18 18:21) HANDS DRAW UP trazodone Adverse Reaction (Verified 07/04/18 11:57) Unknown Home Medications: Ambulatory Orders Enalapril Maleate 10 mg PO DAILY 04/28/13 Furosemide [Lasix Tab] 40 mg PO QID 04/28/13 Promethazine HCl [Phenergan Tab] 25 mg PO PRN PRN 04/28/13 Calcium Carbonate/Vitamin D3 [Calcium 600 + Vit D Caplet] 1 tab PO BID 07/24/14 Carbidopa/Levodopa [Carbidopa-Levodopa 25-100 Tab] 1 tab-cap PO BEDTIME Hydrocodone/Acetaminophen [[place] 10-325 Tablet] 1 each PO Q6HR PRN #7 tablet Cyanocobalamin (Vitamin B-12) [Vitamin B-12] 1,000 mcg IJ ONCE #1 vial 06/15/16 Topiramate [Trokendi Xr] 100 mg PO DAILY PRN 05/21/18 Levofloxacin [Levaquin] 500 mg PO QDAC #6 tablet 07/02/18 Disposition Discussed With: Patient
== END 2018-09-16 20:27 | disposition home or self-care (01) ==
LOC: ED 19:15
DX: N30.90 Cystitis, unspecified without hematuria (principal); R10.9 Unspecified abdominal pain; E78.5 Hyperlipidemia, unspecified; I10 Essential (primary) hypertension; Z79.899 Other long term (current) drug therapy
CPT/HCPCS: 36415; 80053; 81001; 82150; 82550; 82553; 83690; 84484; 85025; 85651; 87086; 93005; 93010; 96372; 99282

== ENCOUNTER 2018-09-20 15:03 | Emergency (ER) ==
[2018-09-20 15:11] VITALS: BP 128/83; TEMP 98.5; BMI 39.9
[2018-09-20] MEDS ORDERED: MORPHINE 2 MG/ML SYRINGE IM STA (15:33)
[2018-09-20] MEDS ORDERED: ZOFRAN 4 MG/2 ML IM STA (15:33)
[2018-09-20] MEDS ORDERED: MORPHINE 4 MG/ML SYRINGE IM STA (15:44)
--- NOTE | 2018-09-20 16:35 | CT ---
EXAM: CT BRAIN HISTORY: Headache, nausea and vomiting TECHNIQUE: CT brain without intravenous contrast. 5-mm axial sections with Reformations. COMPARISON: 05/14/2017 FINDINGS: There is generalized atrophy although much greater in the frontal lobes. There is at least mild periv entricular and deep white matter low attenuation which although nonspecific is suggestive of chronic microvascular ischemic change. These findings are stable. Brain otherwise is unremarkable without evidence of hemorrhage or large vessel distribution recent is chemic infarction. There is no suggestion of acute hydrocephalus or subdural fluid collection. No m ass or mass effect. Postop changes of the right orbit are noted including apparent placement of metallic-like hardware. No skull fracture. Visualized paranasal sinuses are clear. Mastoid air cells are aerated. IMPRESSION: 1. Stable involutional changes. No acute intracranial process identified. 2. Visualized paranasal sinuses are clear. 3. Postop changes of the right orbit.
--- NOTE | 2018-09-20 16:36 | CT ---
EXAM: CT abdomen pelvis without contrast HISTORY: Pain, nausea, vomiting, diarrhea COMPARISON: 09/16/2018 TECHNIQUE: CT abdomen pelvis performed without intravenous contrast. Coronal and sagittal reformatt ed images obtained. FINDINGS: Mild dependent density lung bases. No free air. No acute abnormalities of the bones. De generative change in the spine. Heart normal in size. Evaluation organ parenchyma limited without c ontrast. Liver appears normal. Patient status post cholecystectomy. Pancreas unremarkable. Spleen unremarkable. Adrenals unremarkable. Kidneys unremarkable without hydronephrosis or nephrolithiasi s. No calculi visualized in normal course of the ureters. Bladder unremarkable. Patient status pos t hysterectomy. Aorta normal in caliber. Mild atherosclerosis. No lymphadenopathy or ascites. Sto mach appears normal. No dilated loops small bowel. Surgical clips in the right lower quadrant likel y from prior appendectomy. Mild colonic diverticulosis. . Suspect postsurgical change in the anteri or wall from prior hernia repair. No inflammatory stranding identified in the abdomen or pelvis. Mil d right posterior subcutaneous edema lumbar region. IMPRESSION: 1. No acute abnormality identified in the abdomen or pelvis. 2. Mild colonic diverticulosis. 3. Mild right posterior subcutaneous edema lumbar region.
--- NOTE | 2018-09-20 17:08 | ED.PDOC ---
General ED Provider: Dr. BOUCHRA GARAY Chief Complaint: Nausea/Vomiting Stated Complaint: nausea,vomiting abdominal pain , headache Time Seen by Physician: 15:10 (seen with pt's nurse at all times ) Mode of Arrival: Walk-In Information Source: Patient Exam Limitations: No limitations Primary Care Provider: RADHA HALEY Nursing and Triage Documentation Reviewed and Agree: Yes Does patient meet sepsis criteria?: No System Inflammatory Response Syndrome: Not Applicable Sepsis Protocol: For patient's 13 years and over: Temp is 96.8 and below OR 101 and greater Pulse >90 BPM Resp >20/minute Acutely Altered Mental Status Are patient's symptoms suggestive of a new infection, such as: -Pneumonia -Skin, Soft Tissue -Endocarditis -UTI -Bone, Joint Infection -Implantable Device -Acute Abdominal Infection -Wound Infection -Meningitis -Blood Stream Catheter Infection -Unknown Neurological Complaint Exam - Headache Complaint/Exam Onset: Gradual Duration: 1 day Symptoms Are: Still present Timing: Constant Episodes Lasting: Minutes Worst Headache Ever: No Initial Severity: Mild Current Severity: Mild Location: Diffuse Character: Reports: Throbbing Aggravating: Reports: None Associated Signs and Symptoms: Denies: Dizziness, Seizure, Nausea, Vomiting, Sinus pressure, Fever, Neck pain, Neck stiffness, Decreased LOC, Visual changes Related History: Reports: Similar episode Related Surgical History: Reports: None SAH Risk Factors: Reports: Hypertension Meningitis Risk Factors: Reports: None SDH Risk Factors: Reports: None Temporal Arteritis Risk Factors: Reports: None Normal Head CT Within Last 12 Months: No Fundoscopic Exam: Present: Normal Findings Papilledema Present: No Temporal Artery Tenderness: Present: None Sinus Tenderness: Present: None TMJ Tenderness: Present: None Glascow Coma Scale (see protocol): 15 Meningeal Signs Positive: No Pain on Passive Flexion-Positive Kernig's: No ROM Limited In: No Limitiations Focal Weakness: Present: None Focal Sensory Loss: Present: None Gait: Normal Nystagmus Present: No Gag Reflex Present: Yes [id number]: Normal Findings Babinski Sign: Negative Right, Negative Left Differential Diagnoses: Migraine, Viral Syndrome Review of Systems - Review Of Systems Constitutional: Reports: No symptoms Eyes: Reports: No symptoms Ears, Nose, Mouth, Throat: Reports: No symptoms Respiratory: Reports: No symptoms Cardiac: Reports: No symptoms GI: Reports: Abdominal pain, Nausea, Poor appetite, Poor fluid intake, Vomiting : Reports: No symptoms Musculoskeletal: Reports: No symptoms Skin: Reports: No symptoms Neurological: Reports: Headache Endocrine: Reports: No symptoms Hematologic/Lymphatic: Reports: No symptoms All Other Systems: Reviewed and Negative Past Medical History - Past Medical History Previously Healthy: Yes Endocrine: Reports: Dyslipidemia Cardiovascular: Reports: Hypertension Respiratory: Reports: None Hematological: Reports: None Gastrointestinal: Reports: Other (IBS) Genitourinary: Reports: None Neuro/Psych: Reports: Migraine, Anxiety, Depression Musculoskeletal: Reports: None Cancer: Reports: None Last Menstrual Period: hysterectomy Other Pertinent Past Medical History: IBS - Surgical History General Surgical History: Reports: Hysterectomy, Back Surgery, Other (NASAL SURG FOR SINUSES 05/13) - Family History Family History: Reports: Unknown - Social History Smoking Status: Former smoker Hx Substance Use: No Alcohol Screening: None - Immunizations Influenza Vaccine within 12 Months: No Pneumococcal Vaccine up to Date: No Physical Exam - Physical Exam Appearance: Well-appearing, No pain distress, Well-nourished Eyes: KORIN, EOMI, Conjunctiva clear ENT: Ears normal, Nose normal, Oropharynx normal Respiratory: Airway patent, Breath sounds clear, Breath sounds equal, Respirations nonlabored Cardiovascular: RRR, Pulses normal, No rub, No murmur GI/: Soft, Nontender, No masses, Bowel sounds normal, No Organomegaly Musculoskeletal: Normal strength, ROM intact, No edema, No calf tenderness Skin: Warm, Dry, Normal color Neurological: Sensation intact, Motor intact, Reflexes intact, Cranial nerves intact, Alert, Oriented Psychiatric: Affect appropriate, Mood appropriate Interpretation - Radiology Interpretation Radiology Interpretation By: Radiologist Radiology Results: No acute changes Exam Interpreted: CT Scan Re-Evaluation - Re-Evaluation Time of Re-Evaluation: 16:00 Status: Improved Vital Signs Stable: Yes Pain Level: 0 Appearance: NAD Lungs: Clear Skin: Warm and Dry Neuro: Alert and Oriented X3 CV: RRR Critical Care Note - Critical Care Note Total Time (mins): 0 Course - Course Hematology/Chemistry: 09/20/18 15:40 09/20/18 15:40 Orders, Labs, Meds: Lab Review 09/20/18 09/20/18 09/20/18 15:40 15:40 16:00 WBC 5.71 RBC 3.33 L Hgb 10.1 L Hct 30.1 L MCV 90.4 MCH 30.3 MCHC 33.6 RDW Coeff of Donell 13.0 Plt Count 208 Immature Gran % (Auto) 0.2 Neut % (Auto) 46.2 Lymph % (Auto) 40.8 [place] % (Auto) 7.0 Eos % (Auto) 5.1 Baso % (Auto) 0.7 Immature Gran # (Auto) 0.0 Neut # (Auto) 2.6 Lymph # (Auto) 2.3 [place] # (Auto) 0.4 Eos # (Auto) 0.3 Baso # (Auto) 0.0 Sodium 135.3 L Potassium 4.19 Chloride 106.5 Carbon Dioxide 23.9 Anion Gap 9.09 BUN 20.6 H Creatinine 1.08 Estimated GFR (MDRD) 54.00 BUN/Creatinine Ratio 19.07 Glucose 111.1 H Calcium 9.30 Total Bilirubin 0.22 AST 34.5 ALT 17.5 Alkaline Phosphatase 67.0 Total Protein 7.03 Albumin 4.14 Globulin 2.89 Albumin/Globulin Ratio 1.43 Amylase 49.5 Lipase 86.2 Orders Category Date Time Status AMYLASE Stat LAB 09/20/18 16:00 Completed CBC W/ AUTO DIFF Stat LAB 09/20/18 15:40 Completed COMPREHENSIVE METABOLIC PANEL Stat LAB 09/20/18 15:40 Completed LIPASE Stat LAB 09/20/18 16:00 Completed URINALYSIS C & S IF INDICATED Stat LAB 09/20/18 15:51 Uncollected Morphine Sulfate [Morphine 4 mg/ml Syringe] MEDS 09/20/18 15:44 Discontinued 4 mg IM ONCE STA Ondansetron HCl/Pf [Zofran 4 mg/2 ml] MEDS 09/20/18 15:33 Discontinued 8 mg IM ONCE STA CT ABDOMEN/PELVIS WO CONTRAST Stat RADS 09/20/18 15:[address] HEAD W/O CONTRAST Stat RADS 09/20/18 15:35 Completed Medications Discontinued Medications Generic Name Dose Route Start Last Admin Trade Name Freq PRN Reason Stop Dose Admin Morphine Sulfate 4 mg 09/20/18 15:44 09/20/18 16:07 Morphine 4 Mg/Ml Syringe IM 09/20/18 15:45 4 mg ONCE STA Administration Ondansetron HCl 8 mg 09/20/18 15:33 09/20/18 16:05 Zofran 4 Mg/2 Ml IM 09/20/18 15:34 8 mg ONCE STA Administration Vital Signs: Temp Pulse Resp BP Pulse Ox 09/20/18 15:04 98.5 F 99 H 20 128/83 96 Departure - Departure Time of Disposition: 17:13 Disposition: HOME SELF-CARE Discharge Problem: Nausea, Vomiting Headache Qualifiers: Headache type: unspecified Instructions: Acute Headache (ED), Acute Headache (DC) Condition: Good Pt referred to PMD for follow-up: Yes IPMP verified?: No Additional Instructions: Please call your Family Physician as soon as possible to schedule a follow-up appointment. Allergies/Adverse Reactions: Allergies doxycycline Adverse Reaction (Verified 09/20/18 15:12) Rash ketorolac [From Toradol] Adverse Reaction (Verified 09/20/18 15:12) Itching sumatriptan [From Imitrex] Adverse Reaction (Verified 09/20/18 15:12) Unknown topiramate [From Topamax] Adverse Reaction (Verified 09/20/18 15:12) HANDS DRAW UP trazodone Adverse Reaction (Verified 09/20/18 15:12) Unknown Home Medications: Ambulatory Orders Enalapril Maleate 10 mg PO DAILY 04/28/13 Furosemide [Lasix Tab] 40 mg PO QID 04/28/13 Calcium Carbonate/Vitamin D3 [Calcium 600 + Vit D Caplet] 1 tab PO BID 07/24/14 Carbidopa/Levodopa [Carbidopa-Levodopa 25-100 Tab] 1 tab-cap PO BEDTIME Hydrocodone/Acetaminophen [[place] 10-325 Tablet] 1 each PO Q6HR PRN #7 tablet Cyanocobalamin (Vitamin B-12) [Vitamin B-12] 1,000 mcg IJ ONCE #1 vial 06/15/16 Topiramate [Trokendi Xr] 100 mg PO DAILY PRN 05/21/18
== END 2018-09-20 17:28 | disposition home or self-care (01) ==
LOC: ED 15:03
DX: R11.2 Nausea with vomiting, unspecified (principal); R51 Headache; R10.9 Unspecified abdominal pain; I10 Essential (primary) hypertension; E78.5 Hyperlipidemia, unspecified; Z79.899 Other long term (current) drug therapy
CPT/HCPCS: 36415; 80053; 82150; 83690; 85025; 96372; 99283

== ENCOUNTER 2018-10-11 17:05 | Emergency (ER) ==
[2018-10-11 17:18] VITALS: BP 144/87; TEMP 98.4; BMI 39.6
--- NOTE | 2018-10-11 18:06 | ED.PDOC ---
General ED Provider: Dr. BOUCHRA GARAY Chief Complaint: Abdominal Pain Stated Complaint: abdominal pain Time Seen by Physician: 17:17 (seen with radha phipps . ) Mode of Arrival: Walk-In Information Source: Patient Exam Limitations: No limitations Primary Care Provider: RADHA HLAEY Nursing and Triage Documentation Reviewed and Agree: Yes Does patient meet sepsis criteria?: No System Inflammatory Response Syndrome: Not Applicable Sepsis Protocol: For patient's 13 years and over: Temp is 96.8 and below OR 101 and greater Pulse >90 BPM Resp >20/minute Acutely Altered Mental Status Are patient's symptoms suggestive of a new infection, such as: -Pneumonia -Skin, Soft Tissue -Endocarditis -UTI -Bone, Joint Infection -Implantable Device -Acute Abdominal Infection -Wound Infection -Meningitis -Blood Stream Catheter Infection -Unknown GI Complaint Exam - Abdominal Pain Complaint/Exam Onset: Gradual Duration: 1 week mainly constipation has had weight loss [id number] Timing: Intermittent Initial Severity: Mild Location of Pain: Diffuse Radiates To: Denies: Chest, Back, Flank, LLQ, RLQ, Inguinal Character: Reports: Dull Aggravating: Reports: None Alleviating: Reports: None Associated Signs and Symptoms: Denies: Diaphoresis, Fever, Cough, Chest pain, Dizziness, Back pain, Constipation, Blood in stool, Dysuria, Urinary frequency, Decreased urine output, Decreased appetite, Vaginal bleeding, Vaginal discharge , Nausea, Vomiting, Diarrhea, Sore throat, Decreased activity Related History: Reports: Similar episode AAA Risk Factors: Reports: Hypertension Cardiac Risk Factors: Reports: Elevated lipids Ectopic Risk Factors: Reports: None Ovarian Torsion Risk Factors: Reports: None Surgical Obstruction Risk Factors: Reports: None Related Surgical History: Reports: None Patient Rh Status: Unknown Differential Diagnoses: Appendicitis, Bowel Obstruction, Constipation, Diverticulitis, Gastroenteritis, Pancreatitis Review of Systems - Review Of Systems Constitutional: Reports: No symptoms Eyes: Reports: No symptoms Ears, Nose, Mouth, Throat: Reports: No symptoms Respiratory: Reports: No symptoms Cardiac: Reports: No symptoms GI: Reports: Abdominal pain : Reports: No symptoms Musculoskeletal: Reports: No symptoms Skin: Reports: No symptoms Neurological: Reports: No symptoms Endocrine: Reports: No symptoms Hematologic/Lymphatic: Reports: No symptoms All Other Systems: Reviewed and Negative Past Medical History - Past Medical History Previously Healthy: Yes Endocrine: Reports: Dyslipidemia Cardiovascular: Reports: Hypertension Respiratory: Reports: None Hematological: Reports: None Gastrointestinal: Reports: Other (IBS) Genitourinary: Reports: None Neuro/Psych: Reports: Migraine, Anxiety, Depression Musculoskeletal: Reports: None Cancer: Reports: None Last Menstrual Period: hysterectomy Other Pertinent Past Medical History: IBS - Surgical History General Surgical History: Reports: Hysterectomy, Back Surgery, Other (NASAL SURG FOR SINUSES 05/13) - Family History Family History: Reports: Unknown - Social History Smoking Status: Former smoker Hx Substance Use: No Alcohol Screening: None - Immunizations Influenza Vaccine within 12 Months: No Pneumococcal Vaccine up to Date: No Physical Exam - Physical Exam Appearance: Well-appearing, No pain distress, Well-nourished Eyes: KORIN, EOMI, Conjunctiva clear ENT: Ears normal, Nose normal, Oropharynx normal Respiratory: Airway patent, Breath sounds clear, Breath sounds equal, Respirations nonlabored Cardiovascular: RRR, Pulses normal, No rub, No murmur GI/: Soft, Nontender, No masses, Bowel sounds normal, No Organomegaly Musculoskeletal: Normal strength, ROM intact, No edema, No calf tenderness Skin: Warm, Dry, Normal color Neurological: Sensation intact, Motor intact, Reflexes intact, Cranial nerves intact, Alert, Oriented Psychiatric: Affect appropriate, Mood appropriate Critical Care Note - Critical Care Note Total Time (mins): 0 Course - Course Hematology/Chemistry: 10/11/18 17:40 10/11/18 17:40 Orders, Labs, Meds: Lab Review 10/11/18 10/11/18 17:40 17:40 WBC 6.31 RBC 3.26 L Hgb 9.8 L Hct 29.8 L MCV 91.4 MCH 30.1 MCHC 32.9 RDW Coeff of Donell 13.0 Plt Count 283 Immature Gran % (Auto) 0.2 Neut % (Auto) 58.2 Lymph % (Auto) 30.9 [place] % (Auto) 7.1 Eos % (Auto) 3.0 Baso % (Auto) 0.6 Immature Gran # (Auto) 0.0 Neut # (Auto) 3.7 Lymph # (Auto) 2.0 [place] # (Auto) 0.5 Eos # (Auto) 0.2 Baso # (Auto) 0.0 Sodium 137.2 Potassium 3.92 Chloride 105.3 Carbon Dioxide 28.0 Anion Gap 7.82 BUN 10.7 Creatinine 0.68 Estimated GFR (MDRD) 93.00 BUN/Creatinine Ratio 15.73 Glucose 151.5 H Calcium 9.08 Total Bilirubin 0.23 AST 43.1 H ALT 26.4 Alkaline Phosphatase 81.3 Total Protein 7.05 Albumin 3.89 Globulin 3.16 Albumin/Globulin Ratio 1.23 Amylase 65.7 Lipase 193.0 Orders Category Date Time Status AMYLASE Stat LAB 10/11/18 17:31 Ordered CBC W/ AUTO DIFF Stat LAB 10/11/18 17:31 Ordered COMPREHENSIVE METABOLIC PANEL Stat LAB 10/11/18 17:31 Ordered LIPASE Stat LAB 10/11/18 17:31 Ordered URINALYSIS C & S IF INDICATED Stat LAB 10/11/18 17:[address] ABDOMEN/PELVIS WO CONTRAST Stat RADS 10/11/18 17:31 Ordered Vital Signs: Temp Pulse Resp BP Pulse Ox 10/11/18 17:05 98.4 F 113 H 20 144/87 H 98 Departure - Departure Time of Disposition: 18:23 Disposition: HOME SELF-CARE Discharge Problem: Abdominal pain Anemia Qualifiers: Anemia type: unspecified type Qualified Code(s): D64.9 - Anemia, unspecified Instructions: Abdominal Pain (ED), Anemia (ED) Condition: Good Pt referred to PMD for follow-up: Yes IPMP verified?: No Additional Instructions: Please call your Family Physician as soon as possible to schedule a follow-up appointment.YOU ARE ANEMIC PLEASE SEE YOUR DOCTOR EDUIN Allergies/Adverse Reactions: Allergies doxycycline Adverse Reaction (Verified 10/11/18 17:13) Rash ketorolac [From Toradol] Adverse Reaction (Verified 10/11/18 17:13) Itching sumatriptan [From Imitrex] Adverse Reaction (Verified 10/11/18 17:13) Unknown topiramate [From Topamax] Adverse Reaction (Verified 10/11/18 17:13) HANDS DRAW UP trazodone Adverse Reaction (Verified 10/11/18 17:13) Unknown Home Medications: Ambulatory Orders Enalapril Maleate 10 mg PO DAILY 04/28/13 Furosemide [Lasix Tab] 40 mg PO QID 04/28/13 Calcium Carbonate/Vitamin D3 [Calcium 600 + Vit D Caplet] 1 tab PO BID 07/24/14 Carbidopa/Levodopa [Carbidopa-Levodopa 25-100 Tab] 1 tab-cap PO BEDTIME Hydrocodone/Acetaminophen [[place] 10-325 Tablet] 1 each PO Q6HR PRN #7 tablet Cyanocobalamin (Vitamin B-12) [Vitamin B-12] 1,000 mcg IJ ONCE #1 vial 06/15/16 Topiramate [Trokendi Xr] 100 mg PO DAILY PRN 05/21/18 Gabapentin [Neurontin] 200 mg PO BEDTIME 10/11/18 Disposition Discussed With: Patient
--- NOTE | 2018-10-11 18:12 | CT ---
EXAM: CT scan of the abdomen and pelvis without contrast HISTORY: Pain TECHNIQUE: Helical imaging of the abdomen pelvis was performed without contrast. 3 mm thin axial im ages and coronal and sagittal reconstructions were provided for interpretation. Comparison 09/20/2018 CT scan of the abdomen pelvis. FINDINGS: There has been previous cholecystectomy. The liver, spleen, pancreas, adrenal glands and k idneys appear normal. The proximal ureters are normal size. The small and large bowel loops are nor mal caliber. No retroperitoneal abnormalities are seen. Postoperative changes are seen within the lo w anterior abdominal wall. There has been previous appendectomy. The helical images obtained through the pelvis demonstrate a normal appearance of the urinary bladder . There is no free fluid seen within the pelvis. There has been previous hysterectomy. There has be en previous cholecystectomy. Postoperative changes are seen along the body of the stomach. Lung bas es are clear. No lytic or blastic lesions are seen within the osseous structures. IMPRESSION: There is no bowel obstruction or acute inflammatory change seen within the abdomen and p aleksey. There is no ureteral obstruction. Previous hysterectomy and previous cholecystectomy.
[2018-10-11] MEDS ORDERED: ZOFRAN 4 MG/2 ML IM STA (18:28)
[2018-10-11] MEDS ORDERED: DILAUDID 0.5 MG/0.5 ML SYRINGE IM STA (18:28)
== END 2018-10-11 19:04 | disposition home or self-care (01) ==
LOC: ED 17:05
DX: R10.9 Unspecified abdominal pain (principal); D64.9 Anemia, unspecified; Z98.890 Other specified postprocedural states; Z98.84 Bariatric surgery status; K59.00 Constipation, unspecified; I10 Essential (primary) hypertension; E78.5 Hyperlipidemia, unspecified
CPT/HCPCS: 36415; 80053; 81001; 82150; 83690; 85025; 96372; 99283

== ENCOUNTER 2018-10-15 18:21 | Emergency (ER) ==
[2018-10-15 18:25] VITALS: BMI 39.6
[2018-10-15] MEDS ORDERED: PHENERGAN 25 MG/ML VIAL IM STA (18:29)
[2018-10-15] MEDS ORDERED: DILAUDID 1 MG/ML SYRINGE IM STA (18:29)
--- NOTE | 2018-10-15 18:32 | ED.PDOC ---
General <NIKKYARTKAREEN - Last Filed: 10/15/18 20:02> Stated Complaint: im hurting and i have an appt with my surgeon on tuesday Time Seen by Physician: 18:31 Mode of Arrival: Walk-In Information Source: Patient Exam Limitations: No limitations Nursing and Triage Documentation Reviewed and Agree: Yes Does patient meet sepsis criteria?: No If yes, has appropriate treatment been initiated?: No System Inflammatory Response Syndrome: Not Applicable <TEJA CA - Last Filed: 10/20/18 18:44> ED Provider: Dr. TEJA CA Chief Complaint: Abdominal Pain Primary Care Provider: RADHA HALEY Sepsis Protocol: For patient's 13 years and over: Temp is 96.8 and below OR 101 and greater Pulse >90 BPM Resp >20/minute Acutely Altered Mental Status Are patient's symptoms suggestive of a new infection, such as: -Pneumonia -Skin, Soft Tissue -Endocarditis -UTI -Bone, Joint Infection -Implantable Device -Acute Abdominal Infection -Wound Infection -Meningitis -Blood Stream Catheter Infection -Unknown GI Complaint Exam - Abdominal Pain Complaint/Exam Onset: Gradual Duration: several days Symptoms Are: Still present Timing: Constant Initial Severity: Mild Current Severity: Mild Location of Pain: Discrete, LUQ Radiates To: Reports: Back, Flank Character: Reports: Dull, Aching, Cramping Alleviating: Reports: Spontaneous resolution Associated Signs and Symptoms: Denies: Diaphoresis, Fever, Cough, Chest pain, Dizziness, Back pain, Constipation, Blood in stool, Dysuria, Urinary frequency, Decreased urine output, Decreased appetite, Vaginal bleeding, Vaginal discharge , Nausea, Vomiting, Diarrhea, Sore throat, Decreased activity Differential Diagnoses: Bowel Obstruction, Constipation, Pancreatitis Quality Indicator For Non-Traumatic Chest Pain/Syncope: EKG Performed <TEJA CA - Last Filed: 10/20/18 18:44> Review of Systems - Review Of Systems Constitutional: Reports: No symptoms Eyes: Reports: No symptoms Ears, Nose, Mouth, Throat: Reports: No symptoms Respiratory: Reports: No symptoms Cardiac: Reports: No symptoms GI: Reports: Abdominal pain, Nausea : Reports: No symptoms Musculoskeletal: Reports: No symptoms Skin: Reports: No symptoms Neurological: Reports: No symptoms Endocrine: Reports: No symptoms Hematologic/Lymphatic: Reports: No symptoms All Other Systems: Reviewed and Negative <TEJA CA - Last Filed: 10/20/18 18:44> Past Medical History - Past Medical History Previously Healthy: Yes Endocrine: Reports: Dyslipidemia Cardiovascular: Reports: Hypertension Respiratory: Reports: None Hematological: Reports: None Gastrointestinal: Reports: Other (IBS) Genitourinary: Reports: None Neuro/Psych: Reports: Migraine, Anxiety, Depression Musculoskeletal: Reports: None Cancer: Reports: None Last Menstrual Period: n/a Other Pertinent Past Medical History: IBS - Surgical History General Surgical History: Reports: Hysterectomy, Back Surgery, Other (NASAL SURG FOR SINUSES 05/13) - Family History Family History: Reports: Unknown - Social History Smoking Status: Former smoker Hx Substance Use: No Alcohol Screening: None - Immunizations Influenza Vaccine within 12 Months: No Pneumococcal Vaccine up to Date: No <TEJA CA Last Filed: 10/20/18 18:44> Physical Exam - Physical Exam Appearance: Well-appearing, No pain distress, Well-nourished Pain Distress: Moderate Eyes: KORIN, EOMI, Conjunctiva clear ENT: Ears normal, Nose normal, Oropharynx normal Neck: Supple Respiratory: Airway patent, Breath sounds clear, Breath sounds equal, Respirations nonlabored Cardiovascular: RRR, Pulses normal, No rub, No murmur GI/: Soft, No masses, Bowel sounds normal Musculoskeletal: Normal strength, ROM intact, No edema, No calf tenderness Skin: Warm, Dry, Normal color Neurological: Sensation intact, Motor intact, Reflexes intact, Cranial nerves intact, Alert, Oriented Psychiatric: Affect appropriate, Mood appropriate <TEJA CA Last Filed: 10/20/18 18:44> Interpretation - Radiology Interpretation Radiology Interpretation By: Radiologist Radiology Results: No acute changes Exam Interpreted: CT Scan <KAREEN GILMORE - Last Filed: 10/15/18 20:02> Re-Evaluation - Re-Evaluation Time of Re-Evaluation: 20:00 Status: Improved Vital Signs Stable: Yes <KAREEN GILMORE Last Filed: 10/15/18 20:02> Physician Notification - Case Discussed Physician Notified: dr gilmore Time of Notification: 19:00 <TEJA CA Last Filed: 10/20/18 18:44> Critical Care Note - Critical Care Note Total Time (mins): 0 <TEJA CA - Last Filed: 10/20/18 18:44> Course - Course Hematology/Chemistry: 10/15/18 18:29 10/15/18 18:29 <KAREEN GILMORE - Last Filed: 10/15/18 20:02> - Course Hematology/Chemistry: 10/15/18 18:29 10/15/18 18:29 <TEJA CA - Last Filed: 10/20/18 18:44> - Course Orders, Labs, Meds: Lab Review 10/15/18 10/15/18 18:29 18:29 WBC 5.95 RBC 3.72 L Hgb 11.0 L Hct 33.1 L MCV 89.0 MCH 29.6 MCHC 33.2 RDW Coeff of Donell 12.5 Plt Count 357 Immature Gran % (Auto) 0.2 Neut % (Auto) 43.8 Lymph % (Auto) 43.9 [place] % (Auto) 6.7 Eos % (Auto) 4.4 Baso % (Auto) 1.0 Immature Gran # (Auto) 0.0 Neut # (Auto) 2.6 Lymph # (Auto) 2.6 [place] # (Auto) 0.4 Eos # (Auto) 0.3 Baso # (Auto) 0.1 Sodium 141.0 Potassium 4.10 Chloride 108.0 H Carbon Dioxide 24.0 Anion Gap 13.10 BUN 11.0 Creatinine 0.60 Estimated GFR (MDRD) 107.00 BUN/Creatinine Ratio 18.33 Glucose 121.0 H Calcium 9.60 Total Bilirubin 0.20 AST 48.0 H ALT 37.1 H Alkaline Phosphatase 84.0 Total Creatine Kinase 71.8 Troponin I < 0.010 Total Protein 7.70 Albumin 4.40 Globulin 3.30 Albumin/Globulin Ratio 1.33 Amylase 82.3 Lipase 207.2 Orders Category Date Time Status EKG-(ED ONLY) Stat CARDIO 10/15/18 18:28 Completed AMYLASE Stat LAB 10/15/18 18:29 Completed CBC W/ AUTO DIFF Stat LAB 10/15/18 18:29 Completed COMPREHENSIVE METABOLIC PANEL Stat LAB 10/15/18 18:29 Completed CREATINE KINASE Stat LAB 10/15/18 18:29 Completed LIPASE Stat LAB 10/15/18 18:29 Completed TROPONIN I Stat LAB 10/15/18 18:29 Completed Hydromorphone HCl [Dilaudid 1 mg/ml Syringe] MEDS 10/15/18 18:29 Discontinued 2 mg IM ONCE STA Promethazine HCl [Phenergan 25 mg/ml Vial] MEDS 10/15/18 18:29 Discontinued 25 mg IM ONCE STA CT ABDOMEN/PELVIS WO CONTRAST Stat RADS 10/15/18 18:29 Completed Medications Discontinued Medications Generic Name Dose Route Start Last Admin Trade Name Yordy PRN Reason Stop Dose Admin Hydromorphone HCl 2 mg 10/15/18 18:29 10/15/18 19:20 Dilaudid 1 Mg/Ml Syringe IM 10/15/18 18:30 2 mg ONCE STA Administration Promethazine HCl 25 mg 10/15/18 18:29 10/15/18 19:18 Phenergan 25 Mg/Ml Vial IM 10/15/18 18:30 25 mg ONCE STA Administration Vital Signs: Temp Pulse Resp BP Pulse Ox 10/15/18 20:05 97.3 F L 91 H 20 166/86 H 98 10/15/18 18:22 99.3 F 106 H 16 138/92 H 98 Departure - Departure Time of Disposition: 19:58 Pt referred to PMD for follow-up: Yes IPMP verified?: No Disposition Discussed With: Patient, Family <KAREEN GILMORE - Last Filed: 10/15/18 20:02> <TEJA CA - Last Filed: 10/20/18 18:44> - Departure Disposition: HOME SELF-CARE Discharge Problem: Chronic abdominal pain Pancreatitis, chronic Qualifiers: Pancreatitis type: other Qualified Code(s): K86.1 - Other chronic pancreatitis Instructions: Chronic Abdominal Pain (ED) Condition: Stable Additional Instructions: continue home medications Follow up with PCP in 3 days Allergies/Adverse Reactions: Allergies doxycycline Adverse Reaction (Verified 10/15/18 18:31) Rash ketorolac [From Toradol] Adverse Reaction (Verified 10/15/18 18:31) Itching sumatriptan [From Imitrex] Adverse Reaction (Verified 10/15/18 18:31) Unknown topiramate [From Topamax] Adverse Reaction (Verified 10/15/18 18:31) HANDS DRAW UP trazodone Adverse Reaction (Verified 10/15/18 18:31) Unknown Home Medications: Ambulatory Orders Enalapril Maleate 10 mg PO DAILY 04/28/13 Furosemide [Lasix Tab] 40 mg PO QID 04/28/13 Calcium Carbonate/Vitamin D3 [Calcium 600 + Vit D Caplet] 1 tab PO BID 07/24/14 Carbidopa/Levodopa [Carbidopa-Levodopa 25-100 Tab] 1 tab-cap PO BEDTIME Hydrocodone/Acetaminophen [[place] 10-325 Tablet] 1 each PO Q6HR PRN #7 tablet Cyanocobalamin (Vitamin B-12) [Vitamin B-12] 1,000 mcg IJ ONCE #1 vial 06/15/16 Topiramate [Trokendi Xr] 100 mg PO DAILY PRN 05/21/18 Gabapentin [Neurontin] 200 mg PO BEDTIME 10/11/18
--- NOTE | 2018-10-15 19:13 | CT ---
EXAM: CT abdomen pelvis without intravenous contrast 10/15/2018. Sagittal and coronal reformatted i mages obtained HISTORY: Gastric sleeve 09/27/2018. Abdominal pain COMPARISON: 10/11/2018 FINDINGS: The liver shows no acute abnormality. Gallbladder has been removed. The adrenal glands a nd kidneys show no acute abnormality. No urinary obstruction. The spleen and pancreas show no acute abnormality. Postoperative changes of the stomach. No bowel obstruction. Status post appendectomy . No free air or free fluid. Unremarkable urinary bladder. No acute osseous abnormality. Chronic degenerative disc disease most severe at L5-S1. IMPRESSION: 1. Postoperative changes of the stomach. Postoperative changes of cholecystectomy and appendectomy. 2. No urinary or bowel obstruction. No free air or free fluid. 3. No acute inflammatory process identified within the limitation of a noncontrast enhanced examinat ion.
[2018-10-15 20:06] VITALS: BP 166/86; TEMP 97.3
== END 2018-10-15 20:09 | disposition home or self-care (01) ==
LOC: ED 18:21
DX: K86.1 Other chronic pancreatitis (principal); I10 Essential (primary) hypertension; E78.5 Hyperlipidemia, unspecified; K58.9 Irritable bowel syndrome, unspecified; Z79.899 Other long term (current) drug therapy
CPT/HCPCS: 36415; 80053; 82150; 82550; 83690; 84484; 85025; 93005; 93010; 96372; 99283

== ENCOUNTER 2018-12-13 16:41 | Emergency (ER) ==
[2018-12-13 16:46] VITALS: BP 140/89; TEMP 98.7; BMI 38.1
--- NOTE | 2018-12-13 17:10 | ED.PDOC ---
General ED Provider: Dr. BOUCHRA GARAY Chief Complaint: Sore Throat Stated Complaint: sore throat, flu like symptoms Time Seen by Physician: 16:45 (seen with radha phipps ) Mode of Arrival: Walk-In Information Source: Patient Exam Limitations: No limitations Primary Care Provider: RADHA HALEY Nursing and Triage Documentation Reviewed and Agree: Yes Does patient meet sepsis criteria?: No System Inflammatory Response Syndrome: Not Applicable Sepsis Protocol: For patient's 13 years and over: Temp is 96.8 and below OR 101 and greater Pulse >90 BPM Resp >20/minute Acutely Altered Mental Status Are patient's symptoms suggestive of a new infection, such as: -Pneumonia -Skin, Soft Tissue -Endocarditis -UTI -Bone, Joint Infection -Implantable Device -Acute Abdominal Infection -Wound Infection -Meningitis -Blood Stream Catheter Infection -Unknown EENT Complaint Exam - Throat Complaint/Exam Onset/Duration: 1 day Symptoms Are: Still present Timimg: Intermittent Initial Severity: Mild Current Severity: Mild Aggravating: Reports: None Alleviating: Reports: None Associated Signs and Symptoms: Reports: Nasal congestion (headache ). Denies: Fever, Dysphagia, Drooling, Foreign body sensation, Chills, Cough, Wheezing, Hoarseness, Sinus discomfort, Difficulty breathing, Lethargy, Irritability, Decreased activity, Vomiting, Diarrhea, Decreased hearing, Ear drainage Uvula Midline: Yes Chloe-tonsillar Fluctuence: No Scarlatinaform Rash Present: No Lesions: Absent: Lip, Gums, Tongue, Buccal Mucosa, Pharynx Exanthem: Absent: Lip, Gums, Tongue, Buccal Mucosa, Pharynx Stridor Present: No Sinus Tenderness Present: No Tonsillar Hypertrophy Present: No Tonsillar Exudate Present: No Chloe-tonsillar Swelling Present: No Adenopathy Present: No Splenomegaly Present: No Differential Diagnoses: Influenza, Pharyngitis Review of Systems - Review Of Systems Constitutional: Reports: Chills, Malaise Eyes: Reports: No symptoms Ears, Nose, Mouth, Throat: Reports: Throat pain Respiratory: Reports: No symptoms Cardiac: Reports: No symptoms GI: Reports: No symptoms : Reports: No symptoms Musculoskeletal: Reports: No symptoms Skin: Reports: No symptoms Neurological: Reports: Headache Endocrine: Reports: No symptoms Hematologic/Lymphatic: Reports: No symptoms All Other Systems: Reviewed and Negative Past Medical History - Past Medical History Previously Healthy: Yes Endocrine: Reports: Dyslipidemia Cardiovascular: Reports: Hypertension Respiratory: Reports: None Hematological: Reports: None Gastrointestinal: Reports: Other (IBS) Genitourinary: Reports: None Neuro/Psych: Reports: Migraine, Anxiety, Depression Musculoskeletal: Reports: None Cancer: Reports: None Last Menstrual Period: hysterectomy Other Pertinent Past Medical History: IBS - Surgical History General Surgical History: Reports: Hysterectomy, Back Surgery, Other (NASAL SURG FOR SINUSES 05/13) - Family History Family History: Reports: Unknown - Social History Smoking Status: Former smoker Hx Substance Use: No Alcohol Screening: None - Immunizations Influenza Vaccine within 12 Months: No Pneumococcal Vaccine up to Date: No Physical Exam - Physical Exam Appearance: Well-appearing, No pain distress, Well-nourished Eyes: KORIN, EOMI, Conjunctiva clear ENT: Erythema Respiratory: Airway patent, Breath sounds clear, Breath sounds equal, Respirations nonlabored Cardiovascular: RRR, Pulses normal, No rub, No murmur GI/: Soft, Nontender, No masses, Bowel sounds normal, No Organomegaly Musculoskeletal: Normal strength, ROM intact, No edema, No calf tenderness Skin: Warm, Dry, Normal color Neurological: Sensation intact, Motor intact, Reflexes intact, Cranial nerves intact, Alert, Oriented Psychiatric: Affect appropriate, Mood appropriate Critical Care Note - Critical Care Note Total Time (mins): 0 Course - Course Vital Signs: Temp Pulse Resp BP Pulse Ox 12/13/18 16:41 98.7 F 99 H 20 140/89 99 Departure - Departure Time of Disposition: 17:10 Disposition: HOME SELF-CARE Discharge Problem: Viral syndrome Instructions: Viral Syndrome (ED) Condition: Good Pt referred to PMD for follow-up: Yes IPMP verified?: No Additional Instructions: Please call your Family Physician as soon as possible to schedule a follow-up appointment. Prescriptions: Amoxicillin 500 mg PO Q8HR #21 tablet Prednisone 10 mg PO DAILYWM #7 tablet Allergies/Adverse Reactions: Allergies doxycycline Adverse Reaction (Verified 12/13/18 16:47) Rash ketorolac [From Toradol] Adverse Reaction (Verified 12/13/18 16:47) Itching sumatriptan [From Imitrex] Adverse Reaction (Verified 12/13/18 16:47) Unknown topiramate [From Topamax] Adverse Reaction (Verified 12/13/18 16:47) HANDS DRAW UP trazodone Adverse Reaction (Verified 12/13/18 16:47) Unknown Home Medications: Ambulatory Orders Enalapril Maleate 10 mg PO DAILY 04/28/13 Calcium Carbonate/Vitamin D3 [Calcium 600 + Vit D Caplet] 1 tab PO BID 07/24/14 Carbidopa/Levodopa [Carbidopa-Levodopa 25-100 Tab] 1 tab-cap PO BEDTIME Hydrocodone/Acetaminophen [[place] 10-325 Tablet] 1 each PO Q6HR PRN #7 tablet Cyanocobalamin (Vitamin B-12) [Vitamin B-12] 1,000 mcg IJ ONCE #1 vial 06/15/16 Gabapentin [Neurontin] 200 mg PO BEDTIME 10/11/18 Amoxicillin 500 mg PO Q8HR #21 tablet 12/13/18 Prednisone 10 mg PO DAILYWM #7 tablet 12/13/18
== END 2018-12-13 17:21 | disposition home or self-care (01) ==
LOC: ED 16:41
DX: B34.9 Viral infection, unspecified (principal)
CPT/HCPCS: 99282

== ENCOUNTER 2018-12-21 12:37 | Outpatient (CLI) | payer OTHER ==
[2013-04-28 18:50] VITALS: TEMP 97.8
--- NOTE | 2018-12-21 16:29 | DI ---
EXAM: Two-view chest HISTORY: Cough TECHNIQUE: Frontal and lateral views of the chest were obtained. Comparison 11/01/2017. FINDINGS: The heart is stable size. Lungs are clear. The pulmonary vasculature appears normal. Th e costophrenic angles are sharp. IMPRESSION: No active cardiopulmonary disease.
== END 2018-12-21 12:38 | disposition home or self-care (01) ==
LOC: RAD 12:37
PROVIDERS: ATTEND Family Medicine
DX: J40 Bronchitis, not specified as acute or chronic (principal); R05 Cough; J32.9 Chronic sinusitis, unspecified

== ENCOUNTER 2019-01-05 16:42 | Emergency (ER) ==
[2019-01-05 16:53] VITALS: BP 115/80; TEMP 98.4; BMI 37.2
--- NOTE | 2019-01-05 17:56 | DI ---
EXAM: PA and lateral views of the chest. HISTORY: Cough. FINDINGS: The bones are unremarkable. The cardiac silhouette and pulmonary vasculature are within no rmal limits. The costophrenic angles are clear. No infiltrate or consolidation. Impression: No acute cardiopulmonary disease.
--- NOTE | 2019-01-05 18:12 | ED.PDOC ---
General ED Provider: Dr. BOUCHRA GARAY Chief Complaint: Chest Wall Injury/Pain Stated Complaint: flu like symptom chest wall pain productive cough Time Seen by Physician: 16:48 (seen with RN AT ALL TIMES ) Mode of Arrival: Walk-In Information Source: Patient Exam Limitations: No limitations Primary Care Provider: RADHA HALEY Nursing and Triage Documentation Reviewed and Agree: Yes Does patient meet sepsis criteria?: No System Inflammatory Response Syndrome: Not Applicable Sepsis Protocol: For patient's 13 years and over: Temp is 96.8 and below OR 101 and greater Pulse >90 BPM Resp >20/minute Acutely Altered Mental Status Are patient's symptoms suggestive of a new infection, such as: -Pneumonia -Skin, Soft Tissue -Endocarditis -UTI -Bone, Joint Infection -Implantable Device -Acute Abdominal Infection -Wound Infection -Meningitis -Blood Stream Catheter Infection -Unknown Respiratory Complaint Exam - Respiratory Complaint/Exam Symptoms Are: Resolved Timing: Intermittent Initial Severity: Moderate Current Severity: Mild Location: Nose, Throat, Chest Character: Reports: Non-productive cough, Dry cough Aggravating: Reports: URI Associated Signs and Symptoms: Reports: URI, Nasal congestion. Denies: Rapid breathing, Dyspnea, Fever, Chills, Chest pain, Pleuritic chest pain, Wheezing, Hemoptysis, Dizziness, Calf pain, Calf swelling, Edema, Hoarseness, Sinus discomfort, Vomiting, Sore throat, Weight loss, Decreased oral intake, Increased thirst, Increased appetite, Increased urination Related History: Reports: Similar episode History of Healthcare-Acquired Pneumonia: No Related Surgical History: Reports: None Cardiac Risk Factors: Reports: Elevated lipids, Hypertension Pseudomonas Risk Factors: Reports: None Tuberculosis Risk Factors: Reports: None Status Asthmaticus Risk Factors: Reports: None Home Oxygen Use: No Recent Stress Test: No Recent Echo/LV Function: No Current Antibiotic Use: No Current Asthma Medication Use: No Respiratory Distress: None Inadequate Respiratory Effort: No Dysphagia Present: No Stridor Present: No JVD Present: No Accessory Muscle Use: No Retractions: Not Present Diminished Breath Sounds: No Sinus Tenderness: None Grunting Respirations: No Kussmaul Respirations: No Differential Diagnoses: Pneumonia, Bronchitis, URI, Influenza Review of Systems - Review Of Systems Constitutional: Reports: Malaise, Loss of appetite Eyes: Reports: No symptoms Ears, Nose, Mouth, Throat: Reports: No symptoms Respiratory: Reports: Cough Cardiac: Reports: Chest pain (WALL PAIN WHICH IS REPRODUCEABLE BY PALPATION OF CHEST) GI: Reports: No symptoms : Reports: No symptoms Musculoskeletal: Reports: No symptoms Skin: Reports: No symptoms Neurological: Reports: No symptoms Endocrine: Reports: No symptoms Hematologic/Lymphatic: Reports: No symptoms All Other Systems: Reviewed and Negative Past Medical History - Past Medical History Previously Healthy: Yes Endocrine: Reports: Dyslipidemia Cardiovascular: Reports: Hypertension Respiratory: Reports: None Hematological: Reports: None Gastrointestinal: Reports: Other (IBS) Genitourinary: Reports: None Neuro/Psych: Reports: Migraine, Anxiety, Depression Musculoskeletal: Reports: None Cancer: Reports: None Last Menstrual Period: HAS HAD A HYSTEREECTOMY Other Pertinent Past Medical History: IBS - Surgical History General Surgical History: Reports: Hysterectomy, Back Surgery, Other (NASAL SURG FOR SINUSES 05/13) - Family History Family History: Reports: Unknown - Social History Smoking Status: Current some day smoker Hx Substance Use: No Alcohol Screening: None - Immunizations Tetanus Shot up to Date: Yes Influenza Vaccine within 12 Months: No Pneumococcal Vaccine up to Date: No Physical Exam - Physical Exam Appearance: Well-appearing, No pain distress, Well-nourished Eyes: KORIN, EOMI, Conjunctiva clear ENT: Ears normal, Nose normal, Oropharynx normal Respiratory: Airway patent, Breath sounds clear, Breath sounds equal, Respirations nonlabored Cardiovascular: RRR GI/: Soft, Nontender, No masses, Bowel sounds normal, No Organomegaly Musculoskeletal: Normal strength (CHEST WALL PAIN BY DEEP PALPATION SAME PAIN WHICH IS NOTED DURING COUGING AMAYA), ROM intact, No edema, No calf tenderness Skin: Warm, Dry, Normal color Neurological: Sensation intact, Motor intact, Reflexes intact, Cranial nerves intact, Alert, Oriented Psychiatric: Affect appropriate, Mood appropriate Interpretation - Radiology Interpretation Radiology Interpretation By: Radiologist Radiology Results: No acute changes - Makeup Sales Consultant Rate: Normal Rhythm: Sinus Ectopy: None - EKG Interpretation Rate: Normal Rhythm: Sinus Ectopy: None [place]: NL ST Segment: Normal Re-Evaluation - Re-Evaluation Time of Re-Evaluation: 18:13 Status: Improved Vital Signs Stable: Yes Pain Level: 0 Appearance: NAD Lungs: Clear Skin: Warm and Dry Neuro: Alert and Oriented X3 CV: RRR Critical Care Note - Critical Care Note Total Time (mins): 0 Course - Course Hematology/Chemistry: 01/05/19 17:34 01/05/19 17:34 Orders, Labs, Meds: Lab Review 01/05/19 01/05/19 01/05/19 17:34 17:34 17:34 WBC 5.39 RBC 3.47 L Hgb 10.0 L Hct 31.2 L MCV 89.9 MCH 28.8 MCHC 32.1 RDW Coeff of Donell 13.9 Plt Count 228 Immature Gran % (Auto) 0.2 Neut % (Auto) 43.4 Lymph % (Auto) 47.1 Mitchell % (Auto) 6.3 Eos % (Auto) 2.6 Baso % (Auto) 0.4 Immature Gran # (Auto) 0.0 Neut # (Auto) 2.3 Lymph # (Auto) 2.5 Mitchell # (Auto) 0.3 L Eos # (Auto) 0.1 Baso # (Auto) 0.0 Sodium 142.0 Potassium 3.72 Chloride 107.2 H Carbon Dioxide 27.7 Anion Gap 10.82 BUN 17.3 H Creatinine 0.75 Estimated GFR (MDRD) 82.00 BUN/Creatinine Ratio 23.06 Glucose 103.0 Calcium 9.00 Total Bilirubin < 0.10 L AST 25.6 ALT 20.2 Alkaline Phosphatase 67.4 Total Creatine Kinase 101.8 Troponin I < 0.012 Total Protein 6.74 Albumin 3.68 Globulin 3.06 Albumin/Globulin Ratio 1.20 Influ A Molecular Assay Negative by naat Influ B Molecular Assay Negative by naat Orders Category Date Time Status CBC W/ AUTO DIFF Stat LAB 01/05/19 17:22 Ordered COMPREHENSIVE METABOLIC PANEL Stat LAB 01/05/19 17:22 Ordered CREATINE KINASE Stat LAB 01/05/19 17:22 Ordered FLU A/B MOLECULAR Stat LAB 01/05/19 17:22 Uncollected MOLECULAR GROUP A STREP Stat LAB 01/05/19 17:23 Uncollected TROPONIN I Stat LAB 01/05/19 17:22 Ordered CHEST, 2 VIEWS PA & LAT Stat RADS 01/05/19 17:22 Ordered Vital Signs: Temp Pulse Resp BP Pulse Ox 01/05/19 16:43 98.4 F 96 H 20 115/80 100 Departure - Departure Time of Disposition: 18:14 Disposition: HOME SELF-CARE Discharge Problem: Chest wall pain Anemia Qualifiers: Anemia type: unspecified type Qualified Code(s): D64.9 - Anemia, unspecified Instructions: Chest Pain (ED), Thoracic Pain (ED), Chest Wall Pain (ED) Condition: Good Pt referred to PMD for follow-up: Yes IPMP verified?: No Additional Instructions: Please call your Family Physician as soon as possible to schedule a follow-up appointment. Allergies/Adverse Reactions: Allergies doxycycline Adverse Reaction (Verified 01/05/19 16:54) Rash ketorolac [From Toradol] Adverse Reaction (Verified 01/05/19 16:54) Itching sumatriptan [From Imitrex] Adverse Reaction (Verified 01/05/19 16:54) Unknown topiramate [From Topamax] Adverse Reaction (Verified 01/05/19 16:54) HANDS DRAW UP trazodone Adverse Reaction (Verified 01/05/19 16:54) Unknown Home Medications: Ambulatory Orders Enalapril Maleate 10 mg PO DAILY 04/28/13 Calcium Carbonate/Vitamin D3 [Calcium 600 + Vit D Caplet] 1 tab PO BID 07/24/14 Carbidopa/Levodopa [Carbidopa-Levodopa 25-100 Tab] 1 tab-cap PO BEDTIME Hydrocodone/Acetaminophen [[place] 10-325 Tablet] 1 each PO Q6HR PRN #7 tablet Cyanocobalamin (Vitamin B-12) [Vitamin B-12] 1,000 mcg IJ ONCE #1 vial 06/15/16 Gabapentin [Neurontin] 200 mg PO BEDTIME 10/11/18
== END 2019-01-05 18:19 | disposition home or self-care (01) ==
LOC: ED 16:42
DX: R07.89 Other chest pain (principal); D64.9 Anemia, unspecified; E78.5 Hyperlipidemia, unspecified; I10 Essential (primary) hypertension; F17.210 Nicotine dependence, cigarettes, uncomplicated
CPT/HCPCS: 36415; 80053; 82550; 84484; 85025; 87502; 87651; 93005; 93010; 99283

== ENCOUNTER 2019-02-15 18:38 | Emergency (ER) ==
[2013-04-28 18:50] VITALS: BP 124/80; TEMP 97.8
[2019-02-15 18:42] VITALS: BP 116/78; TEMP 99.5; BMI 35.6
[2019-02-15] MEDS ORDERED: MORPHINE 4 MG/ML VIAL IVP STA (19:07)
[2019-02-15] MEDS ORDERED: COMPAZINE IM STA (19:07)
[2019-02-15] MEDS ORDERED: DILAUDID 1 MG/ML SYRINGE IM STA (19:11)
--- NOTE | 2019-02-15 19:14 | ED.PDOC ---
General ED Provider: Dr. KAREEN GILMORE Chief Complaint: Headache Stated Complaint: Patient is a 48 year old female who had CABG two weeks ago comes to the ER with her typical migraines headaches not better after taking [place] at home. Time Seen by Physician: 19:00 Mode of Arrival: Walk-In Information Source: Patient Exam Limitations: No limitations Primary Care Provider: RADHA HALEY Nursing and Triage Documentation Reviewed and Agree: Yes Does patient meet sepsis criteria?: No System Inflammatory Response Syndrome: Not Applicable Sepsis Protocol: For patient's 13 years and over: Temp is 96.8 and below OR 101 and greater Pulse >90 BPM Resp >20/minute Acutely Altered Mental Status Are patient's symptoms suggestive of a new infection, such as: -Pneumonia -Skin, Soft Tissue -Endocarditis -UTI -Bone, Joint Infection -Implantable Device -Acute Abdominal Infection -Wound Infection -Meningitis -Blood Stream Catheter Infection -Unknown Neurological Complaint Exam - Headache Complaint/Exam Onset: Gradual Duration: 3 days Symptoms Are: Still present Timing: Constant Worst Headache Ever: No Initial Severity: Moderate Current Severity: Severe Location: Diffuse Character: Reports: Migraine Aggravating: Reports: Bright lights Alleviating: Reports: None Associated Signs and Symptoms: Reports: Dizziness, Nausea Related Surgical History: Reports: None SAH Risk Factors: Reports: None Meningitis Risk Factors: Reports: None SDH Risk Factors: Reports: None Temporal Arteritis Risk Factors: Reports: Female, . Denies: Over 60 years old, Polymyalgia Rheumatica Normal Head CT Within Last 12 Months: Yes (very recent ) Temporal Artery Tenderness: Present: None Sinus Tenderness: Present: None Glascow Coma Scale (see protocol): 15 Meningeal Signs Positive: No Pain on Passive Flexion-Positive Kernig's: No ROM Limited In: No Limitiations Review of Systems - Review Of Systems Constitutional: Reports: No symptoms Eyes: Reports: Photophobia Ears, Nose, Mouth, Throat: Reports: No symptoms Respiratory: Reports: No symptoms Cardiac: Reports: No symptoms GI: Reports: No symptoms : Reports: No symptoms Musculoskeletal: Reports: No symptoms Skin: Reports: No symptoms Neurological: Reports: Anxiety, Headache Endocrine: Reports: No symptoms Hematologic/Lymphatic: Reports: No symptoms All Other Systems: Reviewed and Negative Past Medical History - Past Medical History Previously Healthy: Yes Endocrine: Reports: Dyslipidemia Cardiovascular: Reports: Hypertension Respiratory: Reports: None Hematological: Reports: None Gastrointestinal: Reports: Other (IBS) Genitourinary: Reports: None Neuro/Psych: Reports: Migraine, Anxiety, Depression Musculoskeletal: Reports: None Cancer: Reports: None Last Menstrual Period: hysterectomy Other Pertinent Past Medical History: IBS - Surgical History General Surgical History: Reports: Hysterectomy, Back Surgery, Other (NASAL SURG FOR SINUSES 05/13) - Family History Family History: Reports: Unknown - Social History Smoking Status: Current some day smoker Hx Substance Use: No Alcohol Screening: None - Immunizations Influenza Vaccine within 12 Months: No Pneumococcal Vaccine up to Date: No Physical Exam - Physical Exam Appearance: Ill-appearing, Obese Ill-appearing: Mild Pain Distress: Severe Eyes: KORIN, EOMI, Conjunctiva clear Neck: Supple Respiratory: Airway patent, Breath sounds clear, Breath sounds equal, Respirations nonlabored Cardiovascular: RRR, Pulses normal, No rub, No murmur GI/: Soft Musculoskeletal: Normal strength Skin: Warm, Dry Neurological: Alert, Oriented Psychiatric: Anxious Critical Care Note - Critical Care Note Total Time (mins): 30 Course - Course Orders, Labs, Meds: Orders Category Date Time Status EKG-(ED ONLY) Stat CARDIO 02/15/19 18:55 Completed Hydromorphone HCl [Dilaudid 1 mg/ml Syringe] MEDS 02/15/19 19:11 Discontinued 1 mg IM ONCE STA Nalbuphine HCl [Nubain] MEDS 02/15/19 20:16 Discontinued 10 mg IM ONCE STA Prochlorperazine Edisylate [Compazine] MEDS 02/15/19 19:07 Discontinued 10 mg IM ONCE STA Medications Discontinued Medications Generic Name Dose Route Start Last Admin Trade Name Yordy PRN Reason Stop Dose Admin Hydromorphone HCl 1 mg 02/15/19 19:11 02/15/19 19:23 Dilaudid 1 Mg/Ml Syringe IM 02/15/19 19:12 1 mg ONCE STA Administration Nalbuphine HCl 10 mg 02/15/19 20:16 02/15/19 20:21 Nubain IM 02/15/19 20:17 10 mg ONCE STA Administration Prochlorperazine Edisylate 10 mg 02/15/19 19:07 02/15/19 19:16 Compazine IM 02/15/19 19:08 10 mg ONCE STA Administration Vital Signs: Temp Pulse Resp BP Pulse Ox 02/15/19 18:38 99.5 F 85 20 116/78 99 Departure - Departure Time of Disposition: 21:05 Disposition: HOME SELF-CARE Discharge Problem: Migraine Qualifiers: Migraine type: without aura Status migrainosus presence: without status migrainosus Intractability: not intractable Qualified Code(s): G43.009 - Migraine without aura, not intractable, without status migrainosus Instructions: Migraine Headache (ED) Condition: Fair Pt referred to PMD for follow-up: Yes IPMP verified?: No Additional Instructions: Take Medications home as prescribed Follow up with PCP in 3 days Prescriptions: Ondansetron [Zofran Odt] 4 mg PO Q8H #14 tab.rapdis Allergies/Adverse Reactions: Allergies doxycycline Adverse Reaction (Verified 02/15/19 18:45) Rash ketorolac [From Toradol] Adverse Reaction (Verified 02/15/19 18:45) Itching sumatriptan [From Imitrex] Adverse Reaction (Verified 02/15/19 18:45) Unknown topiramate [From Topamax] Adverse Reaction (Verified 02/15/19 18:45) HANDS DRAW UP trazodone Adverse Reaction (Verified 02/15/19 18:45) Unknown Home Medications: Ambulatory Orders Calcium Carbonate/Vitamin D3 [Calcium 600 + Vit D Caplet] 1 tab PO BID 07/24/14 Carbidopa/Levodopa [Carbidopa-Levodopa 25-100 Tab] 1 tab-cap PO BEDTIME Hydrocodone/Acetaminophen [[place] 10-325 Tablet] 1 each PO Q6HR PRN #7 tablet Cyanocobalamin (Vitamin B-12) [Vitamin B-12] 1,000 mcg IJ ONCE #1 vial 06/15/16 Gabapentin [Neurontin] 200 mg PO BEDTIME 10/11/18 Aspirin [Aspirin EC] 81 mg PO DAILY 02/15/19 Atorvastatin Calcium [Lipitor] 20 mg PO BEDTIME 02/15/19 Ondansetron [Zofran Odt] 4 mg PO Q8H #14 tab.rapdis 02/15/19 Disposition Discussed With: Patient
[2019-02-15] MEDS ORDERED: NUBAIN IM STA (20:16)
== END 2019-02-15 21:14 | disposition home or self-care (01) ==
LOC: ED 18:38
DX: G43.009 Migraine without aura, not intractable, without status migrainosus (principal); Z95.1 Presence of aortocoronary bypass graft; Z98.890 Other specified postprocedural states; E78.5 Hyperlipidemia, unspecified; I10 Essential (primary) hypertension; F17.210 Nicotine dependence, cigarettes, uncomplicated; Z79.899 Other long term (current) drug therapy; Z87.19 Personal history of other diseases of the digestive system
CPT/HCPCS: 93005; 93010; 96372; 99283

== ENCOUNTER 2019-02-22 13:56 | Outpatient (RCR) ==
[2019-02-23 08:45] VITALS: BP 106/52; TEMP 208.8
== END 2019-02-25 23:59 ==
LOC: CAR.REHAB 13:56
PROVIDERS: ATTEND Nurse Practitioner Acute Care
DX: I25.10 Atherosclerotic heart disease of native coronary artery without angina pectoris (principal)

== ENCOUNTER 2019-02-26 07:01 | Outpatient (RCR) ==
[2013-04-28 18:50] VITALS: TEMP 97.8
[2019-03-26 14:24] VITALS: BP 118/64
== END 2019-03-27 23:59 ==
LOC: CAR.REHAB 07:01
PROVIDERS: ATTEND Nurse Practitioner Acute Care
DX: I25.10 Atherosclerotic heart disease of native coronary artery without angina pectoris (principal)
CPT/HCPCS: 93798

== ENCOUNTER 2019-03-07 12:00 | Emergency (ER) ==
[2019-03-07 12:05] VITALS: BP 105/62; TEMP 98.1; BMI 36.1
[2019-03-07] MEDS ORDERED: ZOFRAN 4 MG/2 ML IM STA (12:34)
[2019-03-07] MEDS ORDERED: MORPHINE 2 MG/ML SYRINGE IM STA (12:34)
--- NOTE | 2019-03-07 12:37 | ED.PDOC ---
General ED Provider: Dr. BOUCHRA GARAY Chief Complaint: Neck Pain Non-Injury Stated Complaint: neck pain none injury reports pain being consistant with prior neck pain Time Seen by Physician: 12:00 (denied chest pain cabag about 3 months ago) Mode of Arrival: Walk-In Information Source: Patient Exam Limitations: No limitations Primary Care Provider: RADHA HALEY Nursing and Triage Documentation Reviewed and Agree: Yes Does patient meet sepsis criteria?: No System Inflammatory Response Syndrome: Not Applicable Sepsis Protocol: For patient's 13 years and over: Temp is 96.8 and below OR 101 and greater Pulse >90 BPM Resp >20/minute Acutely Altered Mental Status Are patient's symptoms suggestive of a new infection, such as: -Pneumonia -Skin, Soft Tissue -Endocarditis -UTI -Bone, Joint Infection -Implantable Device -Acute Abdominal Infection -Wound Infection -Meningitis -Blood Stream Catheter Infection -Unknown Review of Systems - Review Of Systems Constitutional: Reports: No symptoms Eyes: Reports: No symptoms Ears, Nose, Mouth, Throat: Reports: No symptoms Respiratory: Reports: No symptoms Cardiac: Reports: No symptoms GI: Reports: No symptoms : Reports: No symptoms Musculoskeletal: Reports: Neck pain Skin: Reports: No symptoms Neurological: Reports: No symptoms Endocrine: Reports: No symptoms Hematologic/Lymphatic: Reports: No symptoms All Other Systems: Reviewed and Negative Past Medical History - Past Medical History Previously Healthy: Yes Endocrine: Reports: Dyslipidemia Cardiovascular: Reports: Hypertension Respiratory: Reports: None Hematological: Reports: None Gastrointestinal: Reports: Other (IBS) Genitourinary: Reports: None Neuro/Psych: Reports: Migraine, Anxiety, Depression Musculoskeletal: Reports: None Cancer: Reports: None Last Menstrual Period: hysterectomy Other Pertinent Past Medical History: IBS - Surgical History General Surgical History: Reports: Hysterectomy, Back Surgery, Other (NASAL SURG FOR SINUSES 05/13) - Family History Family History: Reports: Unknown - Social History Smoking Status: Current some day smoker Hx Substance Use: No Alcohol Screening: None - Immunizations Influenza Vaccine within 12 Months: No Pneumococcal Vaccine up to Date: No Physical Exam - Physical Exam Appearance: Well-appearing, No pain distress, Well-nourished Eyes: KORIN, EOMI, Conjunctiva clear ENT: Ears normal, Nose normal, Oropharynx normal Respiratory: Airway patent, Breath sounds clear, Breath sounds equal, Respirations nonlabored Cardiovascular: RRR, Pulses normal, No rub, No murmur GI/: Soft, Nontender, No masses, Bowel sounds normal, No Organomegaly Musculoskeletal: Normal strength, ROM intact, No edema, No calf tenderness Skin: Warm, Dry, Normal color Neurological: Sensation intact, Motor intact, Reflexes intact, Cranial nerves intact, Alert, Oriented Psychiatric: Affect appropriate, Mood appropriate Critical Care Note - Critical Care Note Total Time (mins): 0 Course - Course Orders, Labs, Meds: Orders Category Date Time Status Morphine Sulfate [Morphine 2 mg/ml Syringe] MEDS 03/07/19 12:34 Stat 2 mg IM ONCE STA Ondansetron HCl/Pf [Zofran 4 mg/2 ml] MEDS 03/07/19 12:34 Stat 4 mg IM ONCE STA Medications Discontinued Medications Generic Name Dose Route Start Last Admin Trade Name Carlosq PRN Reason Stop Dose Admin Morphine Sulfate 2 mg 03/07/19 12:34 Morphine 2 Mg/Ml Syringe IM 03/07/19 12:35 ONCE STA Ondansetron HCl 4 mg 03/07/19 12:34 Zofran 4 Mg/2 Ml IM 03/07/19 12:35 ONCE STA Vital Signs: Temp Pulse Resp BP Pulse Ox 03/07/19 12:00 98.1 F 79 20 105/62 98 Departure - Departure Time of Disposition: 12:36 Disposition: HOME SELF-CARE Discharge Problem: Neck pain Instructions: Neck Pain (ED) Condition: Good Pt referred to PMD for follow-up: Yes IPMP verified?: No Additional Instructions: Please call your Family Physician as soon as possible to schedule a follow-up appointment. Allergies/Adverse Reactions: Allergies doxycycline Adverse Reaction (Verified 03/07/19 12:07) Rash ketorolac [From Toradol] Adverse Reaction (Verified 03/07/19 12:07) Itching sumatriptan [From Imitrex] Adverse Reaction (Verified 03/07/19 12:07) Unknown topiramate [From Topamax] Adverse Reaction (Verified 03/07/19 12:07) HANDS DRAW UP trazodone Adverse Reaction (Verified 03/07/19 12:07) Unknown Home Medications: Ambulatory Orders Calcium Carbonate/Vitamin D3 [Calcium 600 + Vit D Caplet] 1 tab PO BID 07/24/14 Carbidopa/Levodopa [Carbidopa-Levodopa 25-100 Tab] 1 tab-cap PO BEDTIME Hydrocodone/Acetaminophen [[place] 10-325 Tablet] 1 each PO Q6HR PRN #7 tablet Cyanocobalamin (Vitamin B-12) [Vitamin B-12] 1,000 mcg IJ ONCE #1 vial 06/15/16 Gabapentin [Neurontin] 200 mg PO BEDTIME 10/11/18 Aspirin [Aspirin EC] 81 mg PO DAILY 02/15/19 Atorvastatin Calcium [Lipitor] 20 mg PO BEDTIME 02/15/19 Ondansetron [Zofran Odt] 4 mg PO Q8H #14 tab.rapdis 02/15/19
== END 2019-03-07 13:10 | disposition home or self-care (01) ==
LOC: ED 12:00
DX: M54.2 Cervicalgia (principal); E78.5 Hyperlipidemia, unspecified; I10 Essential (primary) hypertension; Z95.1 Presence of aortocoronary bypass graft; Z87.19 Personal history of other diseases of the digestive system; F17.210 Nicotine dependence, cigarettes, uncomplicated; Z79.899 Other long term (current) drug therapy
CPT/HCPCS: 96372; 99283

== ENCOUNTER 2019-03-14 10:40 | Emergency (ER) ==
[2019-03-14 10:45] VITALS: BP 117/71; TEMP 97.4; BMI 35.6
--- NOTE | 2019-03-14 11:09 | ED.PDOC ---
General ED Provider: Dr. TEJA ACE Chief Complaint: Headache Stated Complaint: Migraine Headache. Rash on arms. HPI:Complains of migraine since she woke up this am. Also has rash to right arm, she has seen Dr Parikh for it, he gave her a cream but it snot helping and still very itchy. PMHx CABG Dec 2018. Time Seen by Physician: 11:00 Mode of Arrival: Walk-In Information Source: Patient Exam Limitations: No limitations (Allergies to mulitple NON NARCOTIC ANALGESICS NOTED.) Primary Care Provider: RADHA PARIKH Nursing and Triage Documentation Reviewed and Agree: Yes Does patient meet sepsis criteria?: No System Inflammatory Response Syndrome: Not Applicable Sepsis Protocol: For patient's 13 years and over: Temp is 96.8 and below OR 101 and greater Pulse >90 BPM Resp >20/minute Acutely Altered Mental Status Are patient's symptoms suggestive of a new infection, such as: -Pneumonia -Skin, Soft Tissue -Endocarditis -UTI -Bone, Joint Infection -Implantable Device -Acute Abdominal Infection -Wound Infection -Meningitis -Blood Stream Catheter Infection -Unknown Neurological Complaint Exam - Headache Complaint/Exam Onset: Gradual Duration: 6 hrs Symptoms Are: Still present Timing: Constant Worst Headache Ever: No Initial Severity: Moderate Current Severity: Moderate Location: Temporal, Parietal Character: Reports: Dull, Typical headache, Migraine Aggravating: Reports: Position change, Bright lights Alleviating: Reports: None Associated Signs and Symptoms: Reports: Nausea. Denies: Dizziness, Seizure, Vomiting, Sinus pressure, Fever, Neck pain, Neck stiffness, Decreased LOC, Visual changes Related History: Reports: Similar episode Related Surgical History: Reports: None SAH Risk Factors: Reports: None Meningitis Risk Factors: Reports: None SDH Risk Factors: Reports: None Temporal Arteritis Risk Factors: Reports: None Normal Head CT Within Last 12 Months: Yes Fundoscopic Exam: Present: Normal Findings Papilledema Present: No Temporal Artery Tenderness: Present: None Sinus Tenderness: Present: None TMJ Tenderness: Present: None Meningeal Signs Positive: No Pain on Passive Flexion-Positive Kernig's: No ROM Limited In: No Limitiations Focal Weakness: Present: None Focal Sensory Loss: Present: None Gait: Normal Nystagmus Present: No Gag Reflex Present: No [id number]: Normal Findings Romberg Test Positive: No Babinski Sign: Negative Right, Negative Left Heel to Toe Normal: Yes Review of Systems - Review Of Systems Constitutional: Reports: No symptoms Eyes: Reports: Decreased acuity, Pain, Photophobia Ears, Nose, Mouth, Throat: Reports: No symptoms Respiratory: Reports: No symptoms Cardiac: Reports: No symptoms GI: Reports: No symptoms : Reports: No symptoms Musculoskeletal: Reports: No symptoms Skin: Reports: No symptoms Neurological: Reports: Headache Endocrine: Reports: No symptoms Hematologic/Lymphatic: Reports: No symptoms All Other Systems: Reviewed and Negative Past Medical History - Past Medical History Previously Healthy: Yes Endocrine: Reports: Dyslipidemia Cardiovascular: Reports: Hypertension Respiratory: Reports: None Hematological: Reports: None Gastrointestinal: Reports: Other (IBS) Genitourinary: Reports: None Neuro/Psych: Reports: Migraine, Anxiety, Depression Musculoskeletal: Reports: None Cancer: Reports: None Last Menstrual Period: none Other Pertinent Past Medical History: IBS - Surgical History General Surgical History: Reports: Hysterectomy, Back Surgery, Other (NASAL SURG FOR SINUSES 05/13) - Family History Family History: Reports: Unknown - Social History Smoking Status: Current some day smoker Hx Substance Use: No Alcohol Screening: None - Immunizations Influenza Vaccine within 12 Months: No Pneumococcal Vaccine up to Date: No Physical Exam - Physical Exam Appearance: Well-appearing, Obese Ill-appearing: None Pain Distress: Mild Eyes: KORIN, EOMI, Conjunctiva clear ENT: Ears normal, Nose normal, Oropharynx normal Neck: Supple Respiratory: Airway patent, Breath sounds clear, Breath sounds equal, Respirations nonlabored Cardiovascular: RRR, Pulses normal, No rub, No murmur GI/: Soft, Nontender, No masses, Bowel sounds normal, No Organomegaly Musculoskeletal: Normal strength, ROM intact, No edema, No calf tenderness Skin: Warm, Dry, Normal color Neurological: Sensation intact, Motor intact, Reflexes intact, Cranial nerves intact, Alert, Oriented Psychiatric: Affect appropriate, Mood appropriate Critical Care Note - Critical Care Note Total Time (mins): 0 Course - Course Hematology/Chemistry: 03/14/19 11:25 03/14/19 11:25 Orders, Labs, Meds: Lab Review 03/14/19 03/14/19 03/14/19 11:20 11:20 11:25 WBC 6.20 RBC 4.36 Hgb 12.8 Hct 40.4 MCV 92.7 MCH 29.4 MCHC 31.7 L RDW Coeff of Donell 13.3 Plt Count 253 Immature Gran % (Auto) 0.2 Neut % (Auto) 50.7 Lymph % (Auto) 40.6 [place] % (Auto) 5.5 Eos % (Auto) 2.4 Baso % (Auto) 0.6 Immature Gran # (Auto) 0.0 Neut # (Auto) 3.1 Lymph # (Auto) 2.5 [place] # (Auto) 0.3 L Eos # (Auto) 0.2 Baso # (Auto) 0.0 ESR 21 H Sodium Potassium Chloride Carbon Dioxide Anion Gap BUN Creatinine Estimated GFR (MDRD) BUN/Creatinine Ratio Glucose Calcium Total Bilirubin AST ALT Alkaline Phosphatase Total Protein Albumin Globulin Albumin/Globulin Ratio Urine Color Yellow Urine Clarity Clear Urine pH 7.0 Ur Specific Beatty 1.010 Urine Protein Negative Urine Glucose (UA) Negative Urine Ketones Negative Urine Blood Negative Urine Nitrite Negative Urine Bilirubin Negative Urine Urobilinogen 0.2 Ur Leukocyte Esterase Negative Urine Opiates Screen Positive Ur Oxycodone Screen Negative Urine Methadone Screen Negative Ur Propoxyphene Screen Negative Ur Barbiturates Screen Negative U Tricyclic Antidepress Negative Ur Phencyclidine Scrn Negative Ur Amphetamine Screen Negative U Methamphetamines Scrn Negative U Benzodiazepines Scrn Negative Urine Cocaine Screen Negative U Cannabinoids Screen Negative 03/14/19 11:25 WBC RBC Hgb Hct MCV MCH MCHC RDW Coeff of Donell Plt Count Immature Gran % (Auto) Neut % (Auto) Lymph % (Auto) [place] % (Auto) Eos % (Auto) Baso % (Auto) Immature Gran # (Auto) Neut # (Auto) Lymph # (Auto) [place] # (Auto) Eos # (Auto) Baso # (Auto) ESR Sodium 138.9 Potassium 4.14 Chloride 101.2 Carbon Dioxide 30.5 H Anion Gap 11.34 BUN 14.0 Creatinine 0.71 Estimated GFR (MDRD) 88.00 BUN/Creatinine Ratio 19.71 Glucose 98.2 Calcium 9.49 Total Bilirubin 0.53 AST 37.5 H ALT 26.0 Alkaline Phosphatase 90.5 Total Protein 7.47 Albumin 4.55 Globulin 2.92 Albumin/Globulin Ratio 1.55 Urine Color Urine Clarity Urine pH Ur Specific Beatty Urine Protein Urine Glucose (UA) Urine Ketones Urine Blood Urine Nitrite Urine Bilirubin Urine Urobilinogen Ur Leukocyte Esterase Urine Opiates Screen Ur Oxycodone Screen Urine Methadone Screen Ur Propoxyphene Screen Ur Barbiturates Screen U Tricyclic Antidepress Ur Phencyclidine Scrn Ur Amphetamine Screen U Methamphetamines Scrn U Benzodiazepines Scrn Urine Cocaine Screen U Cannabinoids Screen Orders Category Date Time Status CBC W/ AUTO DIFF Stat LAB 03/14/19 11:25 Completed CMP [COMPREHENSIVE METABOLIC PANEL] Stat LAB 03/14/19 11:25 Completed ESR Stat LAB 03/14/19 11:25 Completed UA [URINALYSIS C & S IF INDICATED] Stat LAB 03/14/19 11:20 Completed URINE DRUG SCREEN (RAPID FOR ED) [DRUG SCREEN, URINE, LAB 03/14/19 11:20 Completed RAPID] Stat Nalbuphine HCl [Nubain] MEDS 03/14/19 13:05 Discontinued 10 mg IM ONCE STA Orphenadrine Citrate [Norflex] MEDS 03/14/19 13:06 Discontinued 100 mg PO ONCE STA Promethazine HCl [Phenergan 25 mg/ml Vial] MEDS 03/14/19 11:26 Discontinued 25 mg IM ONCE STA Medications Discontinued Medications Generic Name Dose Route Start Last Admin Trade Name Carlosq PRN Reason Stop Dose Admin Nalbuphine HCl 10 mg 03/14/19 13:05 03/14/19 13:16 Nubain IM 03/14/19 13:06 10 mg ONCE STA Administration Orphenadrine Citrate 100 mg 03/14/19 13:06 03/14/19 13:15 Norflex PO 03/14/19 13:07 100 mg ONCE STA Administration Promethazine HCl 25 mg 03/14/19 11:26 03/14/19 11:41 Phenergan 25 Mg/Ml Vial IM 03/14/19 11:27 25 mg ONCE STA Administration Vital Signs: Temp Pulse Resp BP Pulse Ox 03/14/19 10:40 97.4 F L 68 20 117/71 96 Departure - Departure Time of Disposition: 12:40 Disposition: HOME SELF-CARE Discharge Problem: Cephalgia, Migraine Condition: Good Pt referred to PMD for follow-up: Yes (Francisco) HINAMP verified?: No Prescriptions: Orphenadrine Citrate [Norflex] 100 mg PO Q12HR PRN #20 tablet.er PRN Reason: Headache and muscle spasm Allergies/Adverse Reactions: Allergies doxycycline Adverse Reaction (Verified 03/14/19 10:45) Rash ketorolac [From Toradol] Adverse Reaction (Verified 03/14/19 10:45) Itching sumatriptan [From Imitrex] Adverse Reaction (Verified 03/14/19 10:45) Unknown topiramate [From Topamax] Adverse Reaction (Verified 03/14/19 10:45) HANDS DRAW UP trazodone Adverse Reaction (Verified 03/14/19 10:45) Unknown Home Medications: Ambulatory Orders Calcium Carbonate/Vitamin D3 [Calcium 600 + Vit D Caplet] 1 tab PO BID 07/24/14 Carbidopa/Levodopa [Carbidopa-Levodopa 25-100 Tab] 1 tab-cap PO BEDTIME Hydrocodone/Acetaminophen [[place] 10-325 Tablet] 1 each PO Q6HR PRN #7 tablet Cyanocobalamin (Vitamin B-12) [Vitamin B-12] 1,000 mcg IJ ONCE #1 vial 06/15/16 Gabapentin [Neurontin] 200 mg PO BEDTIME 10/11/18 Aspirin [Aspirin EC] 81 mg PO DAILY 02/15/19 Atorvastatin Calcium [Lipitor] 20 mg PO BEDTIME 02/15/19 Ondansetron [Zofran Odt] 4 mg PO Q8H #14 tab.rapdis 02/15/19 Orphenadrine Citrate [Norflex] 100 mg PO Q12HR PRN #20 tablet.er 03/14/19 Transfer Form Completed: Yes Disposition Discussed With: Patient Additional Comments Additional Comments: 1300. Re assessed;. Continues to experienc MARMOLEJO but Nausea Resloved. Lab reviewed and discussed with patient. Explained treatment plan.
[2019-03-14] MEDS ORDERED: PHENERGAN 25 MG/ML VIAL IM STA (11:26)
[2019-03-14] MEDS ORDERED: NUBAIN IM STA (13:05)
[2019-03-14] MEDS ORDERED: NORFLEX PO STA (13:06)
== END 2019-03-14 13:48 | disposition home or self-care (01) ==
LOC: ED 10:40
DX: G43.909 Migraine, unspecified, not intractable, without status migrainosus (principal); R21 Rash and other nonspecific skin eruption; E78.5 Hyperlipidemia, unspecified; I10 Essential (primary) hypertension; Z79.899 Other long term (current) drug therapy; F17.210 Nicotine dependence, cigarettes, uncomplicated; Z95.1 Presence of aortocoronary bypass graft
CPT/HCPCS: 36415; 80053; 80306; 81001; 85025; 85651; 96372; 99283

== ENCOUNTER 2019-03-16 13:25 | Emergency (ER) ==
[2019-03-16 13:29] VITALS: BP 133/87; TEMP 99; BMI 35.7
[2019-03-16] MEDS ORDERED: FIORICET PO STA (13:46)
--- NOTE | 2019-03-16 13:49 | ED.PDOC ---
General ED Provider: Dr. BOUCHRA GARAY Chief Complaint: Headache Stated Complaint: chronic headache Time Seen by Physician: 13:30 (ESHA PRESENT AT ALL TIMES ) Mode of Arrival: Walk-In Information Source: Patient Exam Limitations: No limitations Primary Care Provider: RADHA HALEY Nursing and Triage Documentation Reviewed and Agree: Yes Does patient meet sepsis criteria?: No System Inflammatory Response Syndrome: Not Applicable Sepsis Protocol: For patient's 13 years and over: Temp is 96.8 and below OR 101 and greater Pulse >90 BPM Resp >20/minute Acutely Altered Mental Status Are patient's symptoms suggestive of a new infection, such as: -Pneumonia -Skin, Soft Tissue -Endocarditis -UTI -Bone, Joint Infection -Implantable Device -Acute Abdominal Infection -Wound Infection -Meningitis -Blood Stream Catheter Infection -Unknown Neurological Complaint Exam - Headache Complaint/Exam Onset: Gradual Duration: 1 day Symptoms Are: Still present Timing: Constant Episodes Lasting: Hours Worst Headache Ever: No Initial Severity: Moderate Current Severity: Moderate Location: Frontal, Parietal Character: Reports: Throbbing Aggravating: Reports: Exertion Alleviating: Reports: Rest, Medications Associated Signs and Symptoms: Denies: Dizziness, Seizure, Nausea, Vomiting, Sinus pressure, Fever, Neck pain, Neck stiffness, Decreased LOC, Visual changes Related History: Reports: Similar episode Related Surgical History: Reports: None SAH Risk Factors: Reports: Hypertension Meningitis Risk Factors: Reports: None SDH Risk Factors: Reports: None Temporal Arteritis Risk Factors: Reports: Female, Normal Head CT Within Last 12 Months: Yes Fundoscopic Exam: Present: Normal Findings Papilledema Present: No Temporal Artery Tenderness: Present: None Sinus Tenderness: Present: None TMJ Tenderness: Present: None Glascow Coma Scale (see protocol): 15 Meningeal Signs Positive: No Pain on Passive Flexion-Positive Kernig's: No ROM Limited In: No Limitiations Focal Weakness: Present: None Focal Sensory Loss: Present: None Gait: Normal Nystagmus Present: No Gag Reflex Present: No [id number]: Normal Findings Differential Diagnoses: Migraine Review of Systems - Review Of Systems Constitutional: Reports: No symptoms Eyes: Reports: No symptoms Ears, Nose, Mouth, Throat: Reports: No symptoms Respiratory: Reports: No symptoms Cardiac: Reports: No symptoms GI: Reports: No symptoms : Reports: No symptoms Musculoskeletal: Reports: No symptoms Skin: Reports: No symptoms Neurological: Reports: Headache Endocrine: Reports: No symptoms Hematologic/Lymphatic: Reports: No symptoms All Other Systems: Reviewed and Negative Past Medical History - Past Medical History Previously Healthy: Yes Endocrine: Reports: Dyslipidemia Cardiovascular: Reports: Hypertension Respiratory: Reports: None Hematological: Reports: None Gastrointestinal: Reports: Other (IBS) Genitourinary: Reports: None Neuro/Psych: Reports: Migraine, Anxiety, Depression Musculoskeletal: Reports: None Cancer: Reports: None Last Menstrual Period: hysterectomy Other Pertinent Past Medical History: IBS - Surgical History General Surgical History: Reports: Hysterectomy, Back Surgery, Other (NASAL SURG FOR SINUSES 05/13) - Family History Family History: Reports: Unknown - Social History Smoking Status: Current some day smoker Hx Substance Use: No Alcohol Screening: None - Immunizations Influenza Vaccine within 12 Months: No Pneumococcal Vaccine up to Date: No Physical Exam - Physical Exam Appearance: Well-appearing, No pain distress, Well-nourished Eyes: KORIN, EOMI, Conjunctiva clear ENT: Ears normal, Nose normal, Oropharynx normal Respiratory: Airway patent, Breath sounds clear, Breath sounds equal, Respirations nonlabored Cardiovascular: RRR, Pulses normal, No rub, No murmur GI/: Soft, Nontender, No masses, Bowel sounds normal, No Organomegaly Musculoskeletal: Normal strength, ROM intact, No edema, No calf tenderness Skin: Warm, Dry, Normal color Neurological: Sensation intact, Motor intact, Reflexes intact, Cranial nerves intact, Alert, Oriented Psychiatric: Affect appropriate, Mood appropriate - NIH Stroke Scale 1a. Level of Consciousness: 0=Alert and keenly responsive 1b. Level of Consciousness Questions: 0=Answers correctly to two questions 1c. Level of Consciousness Commands: 0=Performs two tasks correctly 2. Best Gaze: 0=Normal 3. Visual: 0=No visual loss 4. Facial Palsy: 0=Normal 5a. Motor Left Arm: 0=No drift,arm holds 90 degrees for 10 sec., leg 30 degrees for 5 sec. 5b. Motor Right Arm: 0=No drift,arm holds 90 degrees for 10 sec., leg 30 degrees for 5 sec. 6a. Motor Left Le=No drift,arm holds 90 degrees for 10 sec., leg 30 degrees for 5 sec. 6b. Motor Right Le=No drift,arm holds 90 degrees for 10 sec., leg 30 degrees for 5 sec. 7. Limb Ataxia: 0=Absent 8. Sensory: 0=Normal 9. Best Language: 0=No aphasia 10. Dysarthria: 0=Normal 11. Extincion and Inattention: 0=Normal Stroke Scale Total: 0 Critical Care Note - Critical Care Note Total Time (mins): 0 Course - Course Orders, Labs, Meds: Orders Category Date Time Status Ondansetron HCl/Pf [Zofran 4 mg/2 ml] MEDS 03/16/19 13:58 Discontinued 4 mg IM ONCE STA Medications Discontinued Medications Generic Name Dose Route Start Last Admin Trade Name Yordy PRN Reason Stop Dose Admin Acetaminophen/Butalbital/Caffeine 1 each 03/16/19 13:46 Fioricet PO 03/16/19 13:47 ONCE STA Ondansetron HCl 4 mg 03/16/19 13:58 Zofran 4 Mg/2 Ml IM 03/16/19 13:59 ONCE STA Vital Signs: Temp Pulse Resp BP Pulse Ox 03/16/19 13:25 99 F 84 16 133/87 99 Departure - Departure Time of Disposition: 14:00 (SPOKE TO THE PT ABOUT HER HEADACHE, SHE INSISTED THAT NO OTHER APPROACH OTHER THAN A PAIN SHOT WILL WORK. I DECLINED THE PAIN SHOT AND OFFERED HER ZOFRAN AND FIORICET, PT ABOUT 2 PM LEFT AMA DID NOT WAIT FOR MEDS , ESHA WAS PRESENT AT ALL TIMES .) Disposition: HOME SELF-CARE Discharge Problem: Headache Instructions: Migraine Headache (ED) Condition: Good Pt referred to PMD for follow-up: Yes IPMP verified?: No Additional Instructions: Please call your Family Physician as soon as possible to schedule a follow-up appointment. Prescriptions: Butalb/Acetaminophen/Caffeine [Fioricet 50-300-40 mg Capsule] 1 each PO Q6HR #7 capsule Allergies/Adverse Reactions: Allergies doxycycline Adverse Reaction (Verified 03/16/19 13:31) Rash ketorolac [From Toradol] Adverse Reaction (Verified 03/16/19 13:31) Itching sumatriptan [From Imitrex] Adverse Reaction (Verified 03/16/19 13:31) Unknown topiramate [From Topamax] Adverse Reaction (Verified 03/16/19 13:31) HANDS DRAW UP trazodone Adverse Reaction (Verified 03/16/19 13:31) Unknown Home Medications: Ambulatory Orders Calcium Carbonate/Vitamin D3 [Calcium 600 + Vit D Caplet] 1 tab PO BID 07/24/14 Carbidopa/Levodopa [Carbidopa-Levodopa 25-100 Tab] 1 tab-cap PO BEDTIME Hydrocodone/Acetaminophen [[place] 10-325 Tablet] 1 each PO Q6HR PRN #7 tablet Cyanocobalamin (Vitamin B-12) [Vitamin B-12] 1,000 mcg IJ ONCE #1 vial 06/15/16 Gabapentin [Neurontin] 200 mg PO BEDTIME 10/11/18 Aspirin [Aspirin EC] 81 mg PO DAILY 02/15/19 Atorvastatin Calcium [Lipitor] 20 mg PO BEDTIME 02/15/19 Ondansetron [Zofran Odt] 4 mg PO Q8H #14 tab.rapdis 02/15/19 Orphenadrine Citrate [Norflex] 100 mg PO Q12HR PRN #20 tablet.er 03/14/19 Butalb/Acetaminophen/Caffeine [Fioricet 50-300-40 mg Capsule] 1 each PO Q6HR #7 capsule 03/16/19 Disposition Discussed With: Patient
[2019-03-16] MEDS ORDERED: ZOFRAN 4 MG/2 ML IM STA (13:58)
== END 2019-03-16 14:00 | disposition home or self-care (01) ==
LOC: ED 13:25
DX: R51 Headache (principal); I10 Essential (primary) hypertension; E78.5 Hyperlipidemia, unspecified; F17.210 Nicotine dependence, cigarettes, uncomplicated
CPT/HCPCS: 99284

== ENCOUNTER 2019-03-28 07:07 | Outpatient (RCR) ==
[2013-04-28 18:50] VITALS: TEMP 97.8
[2019-04-27 14:38] VITALS: BP 112/54
== END 2019-04-27 23:59 ==
LOC: CAR.REHAB 07:07
PROVIDERS: ATTEND Nurse Practitioner Acute Care
DX: I25.10 Atherosclerotic heart disease of native coronary artery without angina pectoris (principal)
CPT/HCPCS: 93798

== ENCOUNTER 2019-05-08 14:18 | Outpatient (POV) ==
[2013-04-28 18:50] VITALS: TEMP 97.8
== END 2019-05-08 17:00 ==
LOC: OUTPT 14:18
PROVIDERS: ATTEND Otolaryngology
DX: H91.90 Unspecified hearing loss, unspecified ear (principal)
CPT/HCPCS: 92557; 92567

== ENCOUNTER 2019-05-13 17:07 | Emergency (ER) ==
[2019-05-13 17:09] VITALS: BP 138/80; TEMP 102.3; BMI 34.9
[2019-05-13] MEDS ORDERED: LIDOCAINE HCL 1% SDV IM STA (17:14)
[2019-05-13] MEDS ORDERED: ROCEPHIN IM STA (17:14)
[2019-05-13] MEDS ORDERED: PHENERGAN 25 MG/ML VIAL IM STA (17:15)
[2019-05-13] MEDS ORDERED: DILAUDID 1 MG/ML SYRINGE IM STA (17:15)
--- NOTE | 2019-05-13 17:18 | ED.PDOC ---
General ED Provider: Dr. TEJA BALBUENA-ER Chief Complaint: Headache Stated Complaint: olivia got a migraine and my ear hurts too Time Seen by Physician: 17:16 Mode of Arrival: Walk-In Information Source: Patient Exam Limitations: No limitations Primary Care Provider: RADHA HALEY Nursing and Triage Documentation Reviewed and Agree: Yes Does patient meet sepsis criteria?: No System Inflammatory Response Syndrome: Not Applicable Sepsis Protocol: For patient's 13 years and over: Temp is 96.8 and below OR 101 and greater Pulse >90 BPM Resp >20/minute Acutely Altered Mental Status Are patient's symptoms suggestive of a new infection, such as: -Pneumonia -Skin, Soft Tissue -Endocarditis -UTI -Bone, Joint Infection -Implantable Device -Acute Abdominal Infection -Wound Infection -Meningitis -Blood Stream Catheter Infection -Unknown Neurological Complaint Exam - Headache Complaint/Exam Onset: Gradual Duration: 24hrs Symptoms Are: Still present Timing: Constant Worst Headache Ever: No Initial Severity: Mild Current Severity: Moderate Location: Diffuse Character: Reports: Dull, Throbbing, Typical headache, Migraine Aggravating: Reports: Bright lights Alleviating: Reports: None Associated Signs and Symptoms: Reports: Nausea, Fever. Denies: Dizziness, Seizure, Vomiting, Neck pain, Neck stiffness, Decreased LOC, Visual changes Related History: Reports: Similar episode. Denies: Recent trauma, Remote trauma Related Surgical History: Reports: None Temporal Arteritis Risk Factors: Reports: Female, Normal Head CT Within Last 12 Months: Yes Fundoscopic Exam: Present: Normal Findings Papilledema Present: No Temporal Artery Tenderness: Present: None Sinus Tenderness: Present: None TMJ Tenderness: Present: None Glascow Coma Scale (see protocol): 15 Meningeal Signs Positive: No Pain on Passive Flexion-Positive Kernig's: No ROM Limited In: No Limitiations Focal Weakness: Present: None Focal Sensory Loss: Present: None Gait: Normal Nystagmus Present: No Gag Reflex Present: Yes [id number]: Normal Findings Romberg Test Positive: No Babinski Sign: Negative Right, Negative Left Heel to Toe Normal: Yes Differential Diagnoses: Migraine, Other Review of Systems - Review Of Systems Constitutional: Reports: No symptoms Eyes: Reports: No symptoms Ears, Nose, Mouth, Throat: Reports: Ear pain Respiratory: Reports: No symptoms Cardiac: Reports: No symptoms GI: Reports: Nausea : Reports: No symptoms Musculoskeletal: Reports: No symptoms Skin: Reports: No symptoms Neurological: Reports: Headache Endocrine: Reports: No symptoms Hematologic/Lymphatic: Reports: No symptoms All Other Systems: Reviewed and Negative Past Medical History - Past Medical History Previously Healthy: Yes Endocrine: Reports: Dyslipidemia Cardiovascular: Reports: Hypertension Respiratory: Reports: None Hematological: Reports: None Gastrointestinal: Reports: Other (IBS) Genitourinary: Reports: None Neuro/Psych: Reports: Migraine, Anxiety, Depression Musculoskeletal: Reports: None Cancer: Reports: None Last Menstrual Period: n/a Other Pertinent Past Medical History: IBS - Surgical History General Surgical History: Reports: Hysterectomy, Back Surgery, Other (NASAL SURG FOR SINUSES 05/13) - Family History Family History: Reports: Unknown - Social History Smoking Status: Current some day smoker Hx Substance Use: No Alcohol Screening: None - Immunizations Influenza Vaccine within 12 Months: No Pneumococcal Vaccine up to Date: No Physical Exam - Physical Exam Appearance: Well-appearing, No pain distress, Well-nourished Pain Distress: Moderate Eyes: KORIN, EOMI, Conjunctiva clear ENT: Nose normal, Oropharynx normal, Erythema (right tm is erythematous and dull ) Neck: Supple Respiratory: Airway patent, Breath sounds clear, Breath sounds equal, Respirations nonlabored Cardiovascular: RRR, Pulses normal, No rub, No murmur GI/: Soft, Nontender, No masses, Bowel sounds normal, No Organomegaly Musculoskeletal: Normal strength, ROM intact, No edema, No calf tenderness Skin: Warm, Dry, Normal color Neurological: Alert, Oriented Psychiatric: Affect appropriate, Mood appropriate Re-Evaluation - Re-Evaluation Time of Re-Evaluation: 18:00 Status: Improved Vital Signs Stable: Yes Pain Level: 1 Appearance: NAD Lungs: Clear Skin: Warm and Dry Neuro: Alert and Oriented X3 CV: RRR Critical Care Note - Critical Care Note Total Time (mins): 0 Course - Course Orders, Labs, Meds: Orders Category Date Time Status Ceftriaxone Sodium [Rocephin] MEDS 05/13/19 17:14 Discontinued 1 gm IM ONCE STA Hydromorphone HCl [Dilaudid 1 mg/ml Syringe] MEDS 05/13/19 17:15 Discontinued 2 mg IM ONCE STA Lidocaine HCl/Pf [Lidocaine HCl 1% Sdv] MEDS 05/13/19 17:14 Discontinued 2.1 ml IM ONCE STA Promethazine HCl [Phenergan 25 mg/ml Vial] MEDS 05/13/19 17:15 Discontinued 25 mg IM ONCE STA Medications Discontinued Medications Generic Name Dose Route Start Last Admin Trade Name Yordy GAMBOA Reason Stop Dose Admin Ceftriaxone Sodium 1 gm 05/13/19 17:14 Rocephin IM 05/13/19 17:15 ONCE STA Hydromorphone HCl 2 mg 05/13/19 17:15 Dilaudid 1 Mg/Ml Syringe IM 05/13/19 17:16 ONCE STA Lidocaine HCl 2.1 ml 05/13/19 17:14 Lidocaine Hcl 1% Sdv IM 05/13/19 17:15 ONCE STA Promethazine HCl 25 mg 05/13/19 17:15 Phenergan 25 Mg/Ml Vial IM 05/13/19 17:16 ONCE STA Vital Signs: Temp Pulse Resp BP Pulse Ox 05/13/19 17:07 102.3 F H 97 H 20 138/80 98 Departure - Departure Time of Disposition: 17:19 Disposition: HOME SELF-CARE Discharge Problem: Migraine Qualifiers: Migraine type: unspecified Status migrainosus presence: without status migrainosus Intractability: not intractable Qualified Code(s): G43.909 - Migraine, unspecified, not intractable, without status migrainosus Otitis media Qualifiers: Otitis media type: unspecified Chronicity: acute Qualified Code(s): H66.90 - Otitis media, unspecified, unspecified ear Instructions: Migraine Headache (ED) Condition: Good Pt referred to PMD for follow-up: No IPMP verified?: No Additional Instructions: f/u with pcp to recheck ear Allergies/Adverse Reactions: Allergies doxycycline Adverse Reaction (Verified 05/13/19 17:09) Rash ketorolac [From Toradol] Adverse Reaction (Verified 05/13/19 17:09) Itching sumatriptan [From Imitrex] Adverse Reaction (Verified 05/13/19 17:09) Unknown topiramate [From Topamax] Adverse Reaction (Verified 05/13/19 17:09) HANDS DRAW UP trazodone Adverse Reaction (Verified 05/13/19 17:09) Unknown Home Medications: Ambulatory Orders Calcium Carbonate/Vitamin D3 [Calcium 600 + Vit D Caplet] 1 tab PO BID 07/24/14 Carbidopa/Levodopa [Carbidopa-Levodopa 25-100 Tab] 1 tab-cap PO BEDTIME Hydrocodone/Acetaminophen [Deshler 10-325 Tablet] 1 each PO Q6HR PRN #7 tablet Cyanocobalamin (Vitamin B-12) [Vitamin B-12] 1,000 mcg IJ ONCE #1 vial 06/15/16 Gabapentin [Neurontin] 200 mg PO BEDTIME 10/11/18 Aspirin [Aspirin EC] 81 mg PO DAILY 02/15/19 Atorvastatin Calcium [Lipitor] 20 mg PO BEDTIME 02/15/19 Amoxicillin/Potassium Clav [Augmentin 875-125 mg Tab] 1 tab PO Q12HR #20 tablet 05/13/19 Disposition Discussed With: Patient, Family
== END 2019-05-13 17:52 | disposition home or self-care (01) ==
LOC: ED 17:07
DX: G43.909 Migraine, unspecified, not intractable, without status migrainosus (principal); H66.91 Otitis media, unspecified, right ear; F17.210 Nicotine dependence, cigarettes, uncomplicated
CPT/HCPCS: 96372; 99283

== ENCOUNTER 2019-05-17 15:43 | Emergency (ER) ==
[2019-05-17 15:47] VITALS: BP 137/86; TEMP 98.5; BMI 34.8
--- NOTE | 2019-05-17 16:32 | ED.PDOC ---
General ED Provider: Dr. TEJA ACE Chief Complaint: Abdominal Pain Stated Complaint: LT sided low back pain chronic. Now also has aching discomfort LLQ abdomen. States having migraing symptoms and doesn't know if her migraine is making her sick. Upper abdom.-lower chest a little sore but is "mainly in the side."-Lt CVA. Denies A-G-S-Constiptation.Prev Hx Appendectomy. Hx Cerebral thrombosis and TIA. Currently denies weakness. Time Seen by Physician: 15:15 Mode of Arrival: Walk-In Information Source: Patient Exam Limitations: No limitations Primary Care Provider: RADHA HALEY Nursing and Triage Documentation Reviewed and Agree: Yes Does patient meet sepsis criteria?: No System Inflammatory Response Syndrome: Not Applicable Sepsis Protocol: For patient's 13 years and over: Temp is 96.8 and below OR 101 and greater Pulse >90 BPM Resp >20/minute Acutely Altered Mental Status Are patient's symptoms suggestive of a new infection, such as: -Pneumonia -Skin, Soft Tissue -Endocarditis -UTI -Bone, Joint Infection -Implantable Device -Acute Abdominal Infection -Wound Infection -Meningitis -Blood Stream Catheter Infection -Unknown Musculoskeletal Complaint Exam - Back Pain Complaint/Exam Mechanism of Injury: Reports: No known trauma Onset/Duration: 24 hrs Symptoms Are: Still present Timing: Intermittent Initial Severity: Mild Current Severity: Mild Location: Reports: Discrete (lt cva) Character: Reports: Sharp, Aching Aggravating: Reports: Movements Alleviating: Reports: Rest Associated Signs and Symptoms: Denies: Swelling, Redness, Bruising, Fever, Weakness, Numbness, Tingling, Abdominal pain, Flank pain, Bladder incontinence, Bowel incontinence, Weight loss, Pain with weight bearing Related History: Reports: Similar episode TAD Risk Factors: Reports: None AAA Risk Factors: Reports: None Cauda Equina Risk Factors: Reports: None Epidural Abcess Risk Factors: Reports: None Related Surgical History: Reports: None Focal Tenderness: Yes (LT CVA and Lt LS region w/o guarding) Paraspinal Muscle Tenderness: Yes Paraspinal Muscle Spasm: No Scoliosis: No Lordosis: No Kyphosis: No SLR Test: Right Negative, Left Negative Hip Motion Testing Pain: Right Negative, Left Negative Focal Weakness: Present: None Focal Sensory Loss: Present: None Gait: Present: Unable Differential Diagnoses: Strain, Other (OA) Review of Systems - Review Of Systems Constitutional: Reports: No symptoms, Weakness Eyes: Reports: No symptoms Ears, Nose, Mouth, Throat: Reports: No symptoms Respiratory: Reports: No symptoms Cardiac: Reports: No symptoms GI: Reports: Abdominal pain, Constipated : Reports: No symptoms Musculoskeletal: Reports: Back pain Skin: Reports: No symptoms Neurological: Reports: Headache Endocrine: Reports: No symptoms Hematologic/Lymphatic: Reports: No symptoms All Other Systems: Reviewed and Negative Past Medical History - Past Medical History Previously Healthy: Yes Endocrine: Reports: Dyslipidemia Cardiovascular: Reports: Hypertension Respiratory: Reports: None Hematological: Reports: None Gastrointestinal: Reports: Other (IBS) Genitourinary: Reports: None Neuro/Psych: Reports: Migraine, Anxiety, Depression Musculoskeletal: Reports: None Cancer: Reports: None Last Menstrual Period: n/a Other Pertinent Past Medical History: IBS - Surgical History General Surgical History: Reports: Hysterectomy, Back Surgery, Other (NASAL SURG FOR SINUSES 05/13) - Family History Family History: Reports: Unknown - Social History Smoking Status: Current some day smoker Hx Substance Use: No Alcohol Screening: None - Immunizations Influenza Vaccine within 12 Months: No Pneumococcal Vaccine up to Date: No Physical Exam - Physical Exam Appearance: Well-appearing, Obese Ill-appearing: None Pain Distress: None Eyes: KORIN, EOMI, Conjunctiva clear ENT: Ears normal, Nose normal, Oropharynx normal Neck: Supple Respiratory: Airway patent, Breath sounds clear, Breath sounds equal, Respirations nonlabored Cardiovascular: RRR, Pulses normal, No rub, No murmur GI/: Soft, Bowel sounds normal, Tender (LLQ) Musculoskeletal: Normal strength, ROM intact, No edema, No calf tenderness Skin: Warm, Dry, Normal color Neurological: Sensation intact, Motor intact, Reflexes intact, Cranial nerves intact, Alert, Oriented Psychiatric: Affect appropriate, Mood appropriate Interpretation - Radiology Interpretation Radiology Interpretation By: Radiologist Exam Interpreted: CT Scan Xray Comments: Fecal retention Critical Care Note - Critical Care Note Total Time (mins): 0 Course - Course Hematology/Chemistry: 05/17/19 16:57 05/17/19 16:57 Orders, Labs, Meds: Lab Review 05/17/19 05/17/19 16:57 16:57 WBC 6.05 RBC 4.12 L Hgb 12.4 Hct 37.9 MCV 92.0 MCH 30.1 MCHC 32.7 RDW Coeff of Donell 14.5 Plt Count 207 Immature Gran % (Auto) 0.2 Neut % (Auto) 52.3 Lymph % (Auto) 38.8 Crosby % (Auto) 6.3 Eos % (Auto) 2.1 Baso % (Auto) 0.3 Immature Gran # (Auto) 0.0 Neut # (Auto) 3.2 Lymph # (Auto) 2.4 Crosby # (Auto) 0.4 Eos # (Auto) 0.1 Baso # (Auto) 0.0 Sodium 140.1 Potassium 3.65 Chloride 105.9 Carbon Dioxide 25.4 Anion Gap 12.45 BUN 15.5 Creatinine 0.67 Estimated GFR (MDRD) 94.00 BUN/Creatinine Ratio 23.13 Glucose 94.0 Calcium 9.20 Total Bilirubin 0.28 AST 26.5 ALT 22.1 Alkaline Phosphatase 81.1 Total Protein 7.42 Albumin 4.28 Globulin 3.14 Albumin/Globulin Ratio 1.36 Orders Category Date Time Status EKG-(ED ONLY) Stat CARDIO 05/17/19 16:45 Completed CBC W/ AUTO DIFF Stat LAB 05/17/19 16:57 Completed CMP [COMPREHENSIVE METABOLIC PANEL] Stat LAB 05/17/19 16:57 Completed Nalbuphine HCl [Nubain] MEDS 05/17/19 16:48 Discontinued 10 mg IM ONCE STA Ondansetron HCl/Pf [Zofran 4 mg/2 ml] MEDS 05/17/19 16:47 Discontinued 4 mg IM ONCE STA CT ABD/PEL WO RENAL STONE PROT Stat RADS 05/17/19 16:45 Completed Medications Discontinued Medications Generic Name Dose Route Start Last Admin Trade Name Yordy PRN Reason Stop Dose Admin Nalbuphine HCl 10 mg 05/17/19 16:48 05/17/19 17:15 Nubain IM 05/17/19 16:49 10 mg ONCE STA Administration Ondansetron HCl 4 mg 05/17/19 16:47 05/17/19 17:14 Zofran 4 Mg/2 Ml IM 05/17/19 16:48 4 mg ONCE STA Administration Vital Signs: Temp Pulse Resp BP Pulse Ox 05/17/19 15:44 98.5 F 96 H 20 137/86 98 Departure - Departure Time of Disposition: 17:50 Disposition: HOME SELF-CARE Discharge Problem: LLQ abdominal pain, Fecal retention, Chronic migraine Instructions: Constipation (ED) Condition: Good Pt referred to PMD for follow-up: Yes IPMP verified?: No Additional Instructions: Stay well hydrated Take Metamucil 1 scoop in 8 oz water daily May take OTC Miralax daily as needed for constipation Follow up pcp next week Allergies/Adverse Reactions: Allergies doxycycline Adverse Reaction (Verified 07/14/19 16:49) Rash ketorolac [From Toradol] Adverse Reaction (Verified 07/14/19 16:49) Itching sumatriptan [From Imitrex] Adverse Reaction (Verified 07/14/19 16:49) Unknown topiramate [From Topamax] Adverse Reaction (Verified 07/14/19 16:49) HANDS DRAW UP trazodone Adverse Reaction (Verified 07/14/19 16:49) Unknown Home Medications: Ambulatory Orders Calcium Carbonate/Vitamin D3 [Calcium 600 + Vit D Caplet] 1 tab PO BID 07/24/14 Carbidopa/Levodopa [Carbidopa-Levodopa 25-100 Tab] 1 tab-cap PO BEDTIME Hydrocodone/Acetaminophen [Jackson 10-325 Tablet] 1 each PO Q6HR PRN #7 tablet Cyanocobalamin (Vitamin B-12) [Vitamin B-12] 1,000 mcg IJ ONCE #1 vial 06/15/16 Gabapentin [Neurontin] 200 mg PO BEDTIME 10/11/18 Aspirin [Aspirin EC] 81 mg PO DAILY 02/15/19 Atorvastatin Calcium [Lipitor] 20 mg PO BEDTIME 02/15/19 Amoxicillin/Potassium Clav [Augmentin 875-125 mg Tab] 1 tab PO Q12HR #20 tablet 05/13/19 Clindamycin HCl [Cleocin HCl] 150 mg PO Q8HR #20 capsule 06/29/19 Albuterol Sulfate [Albuterol Sulfate Hfa] 2 inh PO QID #1 inhaler 07/14/19 Amoxicillin/Potassium Clav [Augmentin 875-125 mg Tab] 1 tab PO Q12HR #20 tablet 07/14/19 Guaifenesin [Mucinex] 600 mg PO BID #20 tab.er.12h 07/14/19 Disposition Discussed With: Patient GI Complaint Exam - Abdominal Pain Complaint/Exam Onset: Gradual Symptoms Are: Still present Timing: Intermittent Initial Severity: Mild Current Severity: Mild Location of Pain: LLQ Character: Reports: Dull, Aching, Colicky Aggravating: Reports: Movement Alleviating: Reports: Spontaneous resolution Associated Signs and Symptoms: Reports: Back pain. Denies: Diaphoresis, Fever, Cough, Chest pain, Dizziness, Constipation, Blood in stool, Dysuria, Urinary frequency, Decreased urine output, Decreased appetite, Vaginal bleeding, Vaginal discharge, Nausea, Vomiting, Diarrhea, Sore throat, Decreased activity AAA Risk Factors: Reports: None Ectopic Risk Factors: Reports: None Ovarian Torsion Risk Factors: Reports: None Surgical Obstruction Risk Factors: Reports: None Related Surgical History: Reports: Appendectomy Abdominal Findings: Present: None Differential Diagnoses: Diverticulitis, Renal Colic, Ovarian Cyst
[2019-05-17] MEDS ORDERED: ZOFRAN 4 MG/2 ML IM STA (16:47)
[2019-05-17] MEDS ORDERED: NUBAIN IM STA (16:48)
--- NOTE | 2019-05-17 17:31 | CT ---
EXAM: Noncontrast CT of the abdomen and pelvis. HISTORY: Left lower quadrant pain. COMPARISON: None. TECHNIQUE: Contiguous axial images at 3 mm intervals were obtained from lung bases through the pelvi s. No contrast was given. Coronal reformats were reviewed. FINDINGS: The study is limited without contrast. CHEST: LUNG BASES: The lung bases show no lobar consolidation or effusion. HEART: The heart size is within normal limits. ABDOMEN: Evaluation of the soft tissue organs is limited without contrast. LIVER: Noncontrast images of the liver show no solid mass lesion or intrahepatic ductal dilatation. BILIARY: The gallbladder is absent. There are clips in the gallbladder fossa. The common bile nunu t is normal. SPLEEN: The spleen is unremarkable. PANCREAS: The pancreas shows no mass lesion or peripancreatic inflammation. ADRENAL GLANDS: The adrenal glands are normal. RENAL: The kidneys show no hydronephrosis or nephrolithiasis. There are no obstructing ureteral st ones. No solid mass lesions are identified. AORTA: calcifications are seen. No aneurysm is identified. RETROPERITONEUM: There is no retroperitoneal or mesenteric adenopathy. BOWEL: The bowel is unopacified. There are postoperative changes of a gastric bypass. There is no obstruction or inflammatory change. There is no free fluid or free air. No significant inflammato ry changes are seen. The appendix is absent. There is no fluid or inflammation right lower quadra nt. There is a large amount of high density stool in the descending colon and rectum. PELVIS: BLADDER: The bladder is well distended and appears normal. GENITOURINARY STRUCTURES: Unremarkable. OSSEOUS STRUCTURES: The osseous structures are normal for age. IMPRESSION 1. Limited study without contrast.No acute intra-abdominal abnormality. No obstructing ureteral sto sabina. 2. The appendix is absent. 3. Large amount of high density stool in the descending colon. No evidence of diverticulosis or acu te diverticulitis.
== END 2019-05-17 18:00 | disposition home or self-care (01) ==
LOC: ED 15:43
DX: R10.32 Left lower quadrant pain (principal); G43.909 Migraine, unspecified, not intractable, without status migrainosus; K59.00 Constipation, unspecified; M54.5 Low back pain; G89.29 Other chronic pain; E78.5 Hyperlipidemia, unspecified; I10 Essential (primary) hypertension; Z79.899 Other long term (current) drug therapy; F17.210 Nicotine dependence, cigarettes, uncomplicated
CPT/HCPCS: 36415; 80053; 85025; 93005; 93010; 96372; 99283

== ENCOUNTER 2019-06-28 09:20 | Outpatient (RCR) ==
[2013-04-28 18:50] VITALS: TEMP 97.8
[2019-06-07 18:49] VITALS: BMI 34.7
== END 2019-07-28 23:59 ==
LOC: CAR.REHAB 09:20
PROVIDERS: ATTEND Nurse Practitioner Acute Care
DX: I25.10 Atherosclerotic heart disease of native coronary artery without angina pectoris (principal)

== ENCOUNTER 2019-07-10 17:41 | Emergency (ER) ==
[2019-07-10 17:53] VITALS: BP 112/75; TEMP 98.5; BMI 34.6
== END 2019-07-10 18:08 | disposition left against medical advice (07) ==
LOC: ED 17:41
DX: G43.909 Migraine, unspecified, not intractable, without status migrainosus (principal)
CPT/HCPCS: 99281

== ENCOUNTER 2019-07-14 16:40 | Emergency (ER) ==
[2019-07-14 16:50] VITALS: BP 117/66; TEMP 98.2; BMI 34.7
--- NOTE | 2019-07-14 17:36 | ED.PDOC ---
General ED Provider: Dr. TEJA ACE Chief Complaint: Respiratory Complaint Stated Complaint: C/O "chest congestion" et cough. Reports had this a couple weeks ago et it "went away" then came back. Worse yesterday. Chest hurts to breathe. Non productive cough.Nasal /sinus congestion. Yellow nasal drainage. No appetite. Time Seen by Physician: 17:35 Mode of Arrival: Walk-In Information Source: Patient Exam Limitations: No limitations Primary Care Provider: RADHA HALEY Nursing and Triage Documentation Reviewed and Agree: Yes Does patient meet sepsis criteria?: No System Inflammatory Response Syndrome: Not Applicable Sepsis Protocol: For patient's 13 years and over: Temp is 96.8 and below OR 101 and greater Pulse >90 BPM Resp >20/minute Acutely Altered Mental Status Are patient's symptoms suggestive of a new infection, such as: -Pneumonia -Skin, Soft Tissue -Endocarditis -UTI -Bone, Joint Infection -Implantable Device -Acute Abdominal Infection -Wound Infection -Meningitis -Blood Stream Catheter Infection -Unknown Respiratory Complaint Exam - Respiratory Complaint/Exam Onset/Duration: 3 days Symptoms Are: Still present Timing: Intermittent Initial Severity: Moderate Current Severity: Moderate Location: Chest Character: Reports: Non-productive cough, Bronchospastic cough Aggravating: Reports: None Alleviating: Reports: None Associated Signs and Symptoms: Reports: Nasal congestion. Denies: Rapid breathing, Dyspnea, Fever, Chills, Chest pain, Pleuritic chest pain, Wheezing, Hemoptysis, Dizziness, Calf pain, Calf swelling, Edema, URI, Hoarseness, Sinus discomfort, Vomiting, Sore throat, Weight loss, Decreased oral intake, Increased thirst, Increased appetite, Increased urination Related History: Reports: Similar episode History of Healthcare-Acquired Pneumonia: No Related Surgical History: Reports: CABG Pulmonary Embolism Risk Factors: None Review of Systems - Review Of Systems Constitutional: Reports: No symptoms Eyes: Reports: No symptoms Ears, Nose, Mouth, Throat: Reports: No symptoms Respiratory: Reports: Cough, Wheezing Cardiac: Reports: No symptoms GI: Reports: No symptoms : Reports: No symptoms Musculoskeletal: Reports: No symptoms Skin: Reports: No symptoms Neurological: Reports: No symptoms Endocrine: Reports: No symptoms Hematologic/Lymphatic: Reports: No symptoms All Other Systems: Reviewed and Negative Past Medical History - Past Medical History Previously Healthy: Yes Endocrine: Reports: Dyslipidemia Cardiovascular: Reports: Hypertension Respiratory: Reports: None Hematological: Reports: None Gastrointestinal: Reports: Other (IBS) Genitourinary: Reports: None Neuro/Psych: Reports: Migraine, Anxiety, Depression Musculoskeletal: Reports: None Cancer: Reports: None Last Menstrual Period: hysterectomy Other Pertinent Past Medical History: IBS - Surgical History General Surgical History: Reports: Hysterectomy, Back Surgery, Other (NASAL SURG FOR SINUSES 05/13/ Cardiac surgery Dec 2018) - Family History Family History: Reports: Unknown - Social History Smoking Status: Current some day smoker Hx Substance Use: No Alcohol Screening: None - Immunizations Influenza Vaccine within 12 Months: No Pneumococcal Vaccine up to Date: No Physical Exam - Physical Exam Appearance: No pain distress, Obese Ill-appearing: Mild Pain Distress: Mild (Rt Low back and hip) Eyes: KORIN, EOMI, Conjunctiva clear ENT: Ears normal, Nose normal, Oropharynx normal Neck: Supple Respiratory: Airway patent, Breath sounds clear, Breath sounds equal, Breath sounds diminished, Respirations nonlabored Cardiovascular: RRR, Pulses normal, No rub, No murmur GI/: Soft, Nontender, No masses, Bowel sounds normal, No Organomegaly Musculoskeletal: Normal strength, ROM intact, No edema, No calf tenderness Skin: Warm, Dry, Normal color Neurological: Sensation intact, Motor intact, Reflexes intact, Cranial nerves intact, Alert, Oriented Psychiatric: Anxious (Flattened affect) Critical Care Note - Critical Care Note Total Time (mins): 0 Course - Course Hematology/Chemistry: 07/14/19 18:12 07/14/19 18:12 Orders, Labs, Meds: Lab Review 07/14/19 07/14/19 18:12 18:12 WBC 7.24 RBC 4.00 L Hgb 13.0 Hct 38.7 MCV 96.8 MCH 32.5 H MCHC 33.6 RDW Coeff of Donell 13.4 Plt Count 230 Immature Gran % (Auto) 0.3 Neut % (Auto) 58.6 Lymph % (Auto) 32.0 Craig % (Auto) 5.8 Eos % (Auto) 2.9 Baso % (Auto) 0.4 Immature Gran # (Auto) 0.0 Neut # (Auto) 4.2 Lymph # (Auto) 2.3 Craig # (Auto) 0.4 Eos # (Auto) 0.2 Baso # (Auto) 0.0 Sodium 141.0 Potassium 4.49 Chloride 111.3 H Carbon Dioxide 26.4 Anion Gap 7.79 BUN 9.8 Creatinine 0.64 Estimated GFR (MDRD) 99.00 BUN/Creatinine Ratio 15.31 Glucose 93.4 Calcium 9.18 Total Bilirubin 0.35 AST 32.8 ALT 21.4 Alkaline Phosphatase 88.9 Total Creatine Kinase 87.3 Total Protein 7.11 Albumin 3.94 Globulin 3.17 Albumin/Globulin Ratio 1.24 Orders Category Date Time Status NEBULIZER TREATMENT Stat CARDIO 07/14/19 17:52 Completed CBC W/ AUTO DIFF Stat LAB 07/14/19 18:12 Completed CMP [COMPREHENSIVE METABOLIC PANEL] Stat LAB 07/14/19 18:12 Completed CPK [CREATINE KINASE] Stat LAB 07/14/19 18:12 Completed Acetaminophen [Tylenol] MEDS 07/14/19 17:50 Discontinued 650 mg PO ONCE STA Budesonide [Pulmicort 0.5 mg/2 ml] MEDS 07/14/19 17:52 Discontinued 1 vial NEB ONCE STA Ipratropium/Albuterol Neb [Duoneb] MEDS 07/14/19 17:52 Discontinued 1 vial NEB ONCE STA CHEST, 2 VIEWS PA & LAT Stat RADS 07/14/19 17:57 Completed Medications Discontinued Medications Generic Name Dose Route Start Last Admin Trade Name Freq PRN Reason Stop Dose Admin Acetaminophen 650 mg 07/14/19 17:50 07/14/19 18:21 Tylenol PO 07/14/19 17:51 650 mg ONCE STA Administration Albuterol/Ipratropium 1 vial 07/14/19 17:52 07/14/19 18:05 Duoneb NEB 07/14/19 17:53 1 vial ONCE STA Administration Budesonide 1 vial 07/14/19 17:52 07/14/19 18:05 Pulmicort 0.5 Mg/2 Ml NEB 07/14/19 17:53 1 vial ONCE STA Administration Vital Signs: Temp Pulse Resp BP Pulse Ox 07/14/19 16:40 98.2 F 98 H 20 117/66 98 Departure - Departure Time of Disposition: 18:50 Disposition: HOME SELF-CARE Discharge Problem: Bronchitis, Low back pain Instructions: Upper Respiratory Infection in Children (ED), Bronchospasm (ED), Low Back Strain (ED), Lower Back Exercises (ED) Condition: Stable Pt referred to PMD for follow-up: Yes IPMP verified?: No Additional Instructions: Take meds as directed Avoid strenuous activities Stay well hydrated Prescriptions: Amoxicillin/Potassium Clav [Augmentin 875-125 mg Tab] 1 tab PO Q12HR #20 tablet Albuterol Sulfate [Albuterol Sulfate Hfa] 2 inh PO QID #1 inhaler Guaifenesin [Mucinex] 600 mg PO BID #20 tab.er.12h Allergies/Adverse Reactions: Allergies doxycycline Adverse Reaction (Verified 07/14/19 16:49) Rash ketorolac [From Toradol] Adverse Reaction (Verified 07/14/19 16:49) Itching sumatriptan [From Imitrex] Adverse Reaction (Verified 07/14/19 16:49) Unknown topiramate [From Topamax] Adverse Reaction (Verified 07/14/19 16:49) HANDS DRAW UP trazodone Adverse Reaction (Verified 07/14/19 16:49) Unknown Home Medications: Ambulatory Orders Calcium Carbonate/Vitamin D3 [Calcium 600 + Vit D Caplet] 1 tab PO BID 07/24/14 Carbidopa/Levodopa [Carbidopa-Levodopa 25-100 Tab] 1 tab-cap PO BEDTIME Hydrocodone/Acetaminophen [[place] 10-325 Tablet] 1 each PO Q6HR PRN #7 tablet Cyanocobalamin (Vitamin B-12) [Vitamin B-12] 1,000 mcg IJ ONCE #1 vial 06/15/16 Gabapentin [Neurontin] 200 mg PO BEDTIME 10/11/18 Aspirin [Aspirin EC] 81 mg PO DAILY 02/15/19 Atorvastatin Calcium [Lipitor] 20 mg PO BEDTIME 02/15/19 Amoxicillin/Potassium Clav [Augmentin 875-125 mg Tab] 1 tab PO Q12HR #20 tablet 05/13/19 Clindamycin HCl [Cleocin HCl] 150 mg PO Q8HR #20 capsule 06/29/19 Albuterol Sulfate [Albuterol Sulfate Hfa] 2 inh PO QID #1 inhaler 07/14/19 Amoxicillin/Potassium Clav [Augmentin 875-125 mg Tab] 1 tab PO Q12HR #20 tablet 07/14/19 Guaifenesin [Mucinex] 600 mg PO BID #20 tab.er.12h 07/14/19 Disposition Discussed With: Patient (Pt req Giorgio christine for her back - advised pt potential for resp depression and dangerous=-she aknowledged)
[2019-07-14] MEDS ORDERED: TYLENOL PO STA (17:50)
[2019-07-14] MEDS ORDERED: PULMICORT 0.5 MG/2 ML NEB STA (17:52)
[2019-07-14] MEDS ORDERED: DUONEB NEB STA (17:52)
--- NOTE | 2019-07-14 18:17 | DI ---
EXAM: Chest single view Date: 07/14/2019 Comparison: Chest x-ray 01/05/2019 History: Cough and congestion. FINDINGS: There are post CABG changes. Cardiac silhouette and pulmonary vascularity are normal. The re is minimal curvilinear atelectasis in the left mid lung. No consolidation, pleural effusion, or e vidence of pneumothorax. No acute fractures in the chest. Impression: Minimal curvilinear atelectasis in the left mid lung. Otherwise, no active chest diseas e.
== END 2019-07-14 19:15 | disposition home or self-care (01) ==
LOC: ED 16:40
DX: J40 Bronchitis, not specified as acute or chronic (principal); M54.5 Low back pain; Z95.1 Presence of aortocoronary bypass graft; I10 Essential (primary) hypertension; E78.5 Hyperlipidemia, unspecified; Z79.899 Other long term (current) drug therapy; F17.210 Nicotine dependence, cigarettes, uncomplicated
CPT/HCPCS: 36415; 80053; 82550; 85025; 94640; 99283